=== PATIENT | male | born 1950 | race Caucasian/White ===

== ENCOUNTER → 2019-04-08 14:26 | Outpatient (BNVA) | payer MEDICARE, BC, SELFPAY | PROVIDERS: Family Provider Family Medicine; PCP Family Medicine; Visit Provider Internal Medicine Rheumatology | DX: M05.79 Rheumatoid arthritis with rheumatoid factor of multiple sites without organ or systems involvement (principal); Z79.899 Other long term (current) drug therapy; Z79.52 Long term (current) use of systemic steroids; D50.9 Iron deficiency anemia, unspecified; M10.9 Gout, unspecified; N18.9 Chronic kidney disease, unspecified | CPT/HCPCS: 99214 ==

== ENCOUNTER → 2019-06-25 14:19 | Outpatient (BNVA) | payer MEDICARE, BC, SELFPAY | PROVIDERS: Family Provider Family Medicine; PCP Family Medicine; Visit Provider Internal Medicine Rheumatology | DX: Z79.899 Other long term (current) drug therapy (principal) | CPT/HCPCS: 36415; 80053; 80076; 82565; 85007; 85025; 85027; 85651; 86140; 86480 ==

== ENCOUNTER → 2019-10-06 15:04 | Outpatient (BNVA) | payer MEDICARE, BC, SELFPAY | PROVIDERS: Family Provider Family Medicine; PCP Family Medicine; Visit Provider Internal Medicine Rheumatology | DX: M05.79 Rheumatoid arthritis with rheumatoid factor of multiple sites without organ or systems involvement (principal); Z79.899 Other long term (current) drug therapy; D50.9 Iron deficiency anemia, unspecified; M10.9 Gout, unspecified; N18.9 Chronic kidney disease, unspecified | CPT/HCPCS: 99214 ==

== ENCOUNTER 2019-12-27 11:52 | Inpatient (IN) | payer MEDICARE, BC, SELFPAY ==
[2019-12-27] VITALS (35 sets, daily range): BP systolic 74–197; BP diastolic 46–128; PULSE 75–122; RESP 14–32; TEMP 36.9; O2SAT 69–100; BMI 30.4
--- NOTE | 2019-12-27 12:37 | XRR_ITS ---
PROCEDURE INFORMATION: Exam: XR Chest, 1 View Exam date and time: 12/27/2019 1:28 PM Age: 69 years old Clinical indication: Dyspnea TECHNIQUE: Imaging protocol: XR of the chest Views: 1 view. COMPARISON: CR Chest 2 views* [id number] 07/11/2018 10:41 AM FINDINGS: Lungs: Low lung volumes seen with right lower lobe atelectasis No consolidation. Pleural space: Unremarkable. No pleural effusion. No pneumothorax. Heart/Mediastinum: Unremarkable. No cardiomegaly. Bones/joints: Unremarkable. Soft tissues: cardiac pacemaker left anterior chest XR/XR chest 1V portable [id number] IMPRESSION: 1. No acute findings. Right lower lobe atelectasis 2. Low lung volumes seen 3. Cardiac pacemaker left anterior chest
--- NOTE | 2019-12-27 12:49 | ED_ITS ---
HPI - SOB/Dyspnea General: Chief Complaint: Shortness of Breath/Dyspnea Stated Complaint: COVID +, sore throat worsening, congestion Time Seen by Provider: 12/27/19 12:36 History of Present Illness: HPI Narrative: 69-year-old male presents emergency room complaining of shortness of breath. 1 week ago he was diagnosed with COVID-19. He has been at home since he said the last 3 to 4 days he has been getting progressively worsening shortness of breath. He was initially evaluated by our triage nurse and found to have sats in room air in the 70%'s with a respiratory rate in the mid 40s. He was obviously cyanotic and in respiratory distress. With a nonrebreather he is sats improved to the mid 80s. He remains cyanotic and tachypneic. Patient reports initially having diarrhea at the onset of the disease but that has resolved. MD elicited complaint: shortness of breath and cough Pertinent past history: other (Patient is on immunosuppressants for rheumatoid arthritis) Onset (ago): day(s) (3-4) Context: recent illness (Diagnosed with COVID-19 1 week ago) Timing: constant and progressively worsening Severity: severe Exacerbating factors: exertion and coughing Relieving factors: oxygen and rest Known history of: other Associated symptoms: Reports chest congestion, cough, fever(s), myalgias and nausea; Deny abdominal pain, chest pain, diaphoresis, dizziness, extremity pain, hemoptysis, lightheadedness, orthopnea, palpitations, paresthesias, polydipsia, polyuria, rash, sense of impending doom, syncope or vomiting Treatment prior to arrival: none Review of Systems Const: Reports: fever(s); Denies: diaphoresis ENMT: Denies: throat pain, ear or mastoid pain, nasal discharge or nasal congestion Card: Denies: chest pain, palpitations, lightheadedness, syncope or orthopnea Resp: Reports: chest congestion; Denies: hemoptysis GI: Reports: nausea; Denies: abdominal pain or vomiting : Denies: flank pain, dysuria, urinary frequency or urinary urgency Musc: Denies: extremity pain Skin/Breast: Denies: rash or pruritus Neuro: Denies: dizziness Endo: Denies: polyuria or polydipsia PFSH ED PFSH: Medical History CKD (chronic kidney disease) Gout High risk medication use Immunization counseling Immunosuppression Iron deficiency anemia Seropositive rheumatoid arthritis of multiple joints Surgical History History of tonsillectomy Hx of appendectomy Family History Other Cancer Hypertension Denies family history of Rheumatoid arthritis Diabetes Systemic lupus erythematosus (SLE) in adult Social History Smoking and tobacco status: former smoker Quit status (tobacco): has quit using tobacco Year quit tobacco: 1969 Alcohol intake: never Lives independently: No Household members: spouse Marital status: History of recent travel: No Physical Exam Const: GENERAL APPEARANCE: cooperative ORIENTATION/CONSCIOUSNESS: Yes awake, Yes oriented to person, Yes oriented to place and Yes oriented to time HENMT: COMMON NORMALS: normocephalic, atraumatic and hearing grossly normal bilaterally HEAD & SCALP: normocephalic and atraumatic Eye: COMMON NORMALS: Equal, round and reactive pupils present, EOMs intact bilaterally, conjunctivae normal and no scleral icterus CONJUNCTIVA: Yes conjunctivae normal PUPIL: Yes Equal, round and reactive pupils present Neck/C-Spine: COMMON NORMALS: full ROM, no lymphadenopathy, supple and no JVD Resp: EFFORT & INSPECTION: Yes tachypneic, Yes respiratory distress, Yes labored, Yes Actively coughing and Yes audible wheezes AUSCULTATION: rhonchi and wheezes Cardio: COMMON NORMALS: no JVD, regular rate, regular rhythm and No murmurs present (Cardio) RATE: regular rate RHYTHM: regular rhythm GI: COMMON NORMALS: Soft to palpation and No hepatosplenomegaly present AUSCULTATION: Yes normoactive bowel sounds PALPATION: Yes Soft to palpation, No Tenderness to palpation present (GI), No Guarding due to palpation present (GI) and Yes No hepatosplenomegaly present Extremity: COMMON NORMALS: normal to inspection, capillary refill normal, no clubbing, cyanosis or edema, no calf tenderness and no pedal edema Neuro: SENSORIUM/ORIENTATION: Yes oriented to person, Yes oriented to place and Yes oriented to time Skin: COMMON NORMALS: no rashes or lesions noted GENERAL SKIN EXAM: no rashes or lesions noted Course Vital Signs: Vital signs: Vital Signs Temperature 97.6 F 12/29/19 14:00 Pulse Rate 81 12/29/19 15:27 Respiratory Rate 24 H 12/29/19 15:22 Blood Pressure 114/63 12/29/19 13:00 Pulse Oximetry 94 12/29/19 15:20 MDM - SOB/Dyspnea MDM Narrative: Medical decision making narrative: Positive for Covid will go ahead and admit for same discussed with Dr. Sands. Patient was intubated in the ER by Dr. Sands. I was available on standby for him. Lab Data: Labs: Lab Results 12/27/19 12/27/19 12/27/19 Range/Units 12:40 12:40 12:40 WBC 7.7 (4.0-10.0) 10^3/ uL RBC 5.23 (4.1-5.3) 10^6/u L Hgb 16.9 H (11.7-16.6) g/dL Hct 48.5 (42.0-52.0) % MCV 92.7 (80-94) fL MCH 32.3 (28.0-34.0) pg MCHC 34.8 (30.0-36.0) g/dL RDW 13.6 (12.1-15.1) % Plt Count 291 (130-400) 10^3/c mm MPV 10.2 (7.4-10.4) fL Neut % (Auto) 89.2 % Lymph % (Auto) 4.2 % [place] % (Auto) 6.0 % Eos % (Auto) 0.0 % Baso % (Auto) 0.1 % Neut # (Auto) 6.84 (1.8-7.7) 10^3/u L Lymph # (Auto) 0.3 L (0.8-4.8) 10^3/u L [place] # (Auto) 0.5 (0.2-0.9) 10^3/u L Eos # (Auto) 0.0 (0.0-0.8) 10^3/u L Baso # (Auto) 0.0 (0.0-0.1) 10^3/u L Nucleated RBC % (a uto) 0 % Nucleated RBCs # 0.0 /100WBC APTT (23.9-36.7) SECO NDS Fibrinogen Cancelled D-Dimer Cancelled Specimen Type Sample Site ABG pH (7.35-7.45) ABG pCO2 (35-45) mmHg ABG pO2 (80.0-100.0) mmH g ABG HCO3 (22-26) mmol/L ABG O2 Saturation ABG Base Excess (-2.0-2.0) mmol/ L Bc Test A-a O2 Gradient (5-10) mmHg Hematocrit (42-52) % Hgb O2 Saturation (95-100) % Carboxyhemoglobin (0.4-20.1) %THgb Methemoglobin (0.4-1.5) % Total Hemoglobin (14-18) g/dL Ionized Calcium (1.1-1.4) mmol/L O2 Delivery Device O2 Liters/Min % FiO2 % Doubler Operator ID Sodium Cancelled Potassium Cancelled Chloride Cancelled Carbon Dioxide Cancelled Anion Gap Cancelled BUN Cancelled Creatinine Cancelled GFR Calculation Cancelled Glucose Cancelled Calculated Osmolal ity Cancelled Lactic Acid Calcium Cancelled Ferritin Cancelled Total Bilirubin Cancelled AST Cancelled ALT Cancelled Alkaline Phosphata se Cancelled Lactate Dehydrogen ase Cancelled Creatine Kinase Cancelled CK-MB (CK-2) (0-10.4) ng/mL CK-MB (CK-2) Rel I ndex (0.0-5.3) % C-Reactive Protein Cancelled Total Protein Cancelled Albumin Cancelled Globulin Cancelled Procalcitonin Cancelled Influenza Type A A g (Negative) Influenza Type B A g (Negative) SARS-CoV-2 Ag (Rap id) (Negative) 12/27/19 12/27/19 12/27/19 Range/Units 12:40 12:46 13:07 WBC (4.0-10.0) 10^3/ uL RBC (4.1-5.3) 10^6/u L Hgb (11.7-16.6) g/dL Hct (42.0-52.0) % MCV (80-94) fL MCH (28.0-34.0) pg MCHC (30.0-36.0) g/dL RDW (12.1-15.1) % Plt Count (130-400) 10^3/c mm MPV (7.4-10.4) fL Neut % (Auto) % Lymph % (Auto) % [place] % (Auto) % Eos % (Auto) % Baso % (Auto) % Neut # (Auto) (1.8-7.7) 10^3/u L Lymph # (Auto) (0.8-4.8) 10^3/u L [place] # (Auto) (0.2-0.9) 10^3/u L Eos # (Auto) (0.0-0.8) 10^3/u L Baso # (Auto) (0.0-0.1) 10^3/u L Nucleated RBC % (a uto) % Nucleated RBCs # /100WBC APTT (23.9-36.7) SECO NDS Fibrinogen 815 H D-Dimer 0.73 H Specimen Type Arterial Sample Site Radial, left ABG pH 7.46 H (7.35-7.45) ABG pCO2 26.7 L (35-45) mmHg ABG pO2 49.1 L (80.0-100.0) mmH g ABG HCO3 19.2 L (22-26) mmol/L ABG O2 Saturation ABG Base Excess -2.9 L (-2.0-2.0) mmol/ L Bc Test Pos A-a O2 Gradient (5-10) mmHg Hematocrit 48.9 (42-52) % Hgb O2 Saturation (95-100) % Carboxyhemoglobin (0.4-20.1) %THgb Methemoglobin (0.4-1.5) % Total Hemoglobin (14-18) g/dL Ionized Calcium (1.1-1.4) mmol/L O2 Delivery Device Nrb O2 Liters/Min 15.0 % FiO2 100.0 % Doubler Operator ID Ed Sodium Potassium Chloride Carbon Dioxide Anion Gap BUN Creatinine GFR Calculation Glucose Calculated Osmolal ity Lactic Acid Cancelled Calcium Ferritin Total Bilirubin AST ALT Alkaline Phosphata se Lactate Dehydrogen ase Creatine Kinase CK-MB (CK-2) (0-10.4) ng/mL CK-MB (CK-2) Rel I ndex (0.0-5.3) % C-Reactive Protein Total Protein Albumin Globulin Procalcitonin Influenza Type A A g (Negative) Influenza Type B A g (Negative) SARS-CoV-2 Ag (Rap id) (Negative) 12/27/19 12/27/1920 Range/Units 13:07 13:07 13:32 WBC (4.0-10.0) 10^3/ uL RBC (4.1-5.3) 10^6/u L Hgb (11.7-16.6) g/dL Hct (42.0-52.0) % MCV (80-94) fL MCH (28.0-34.0) pg MCHC (30.0-36.0) g/dL RDW (12.1-15.1) % Plt Count (130-400) 10^3/c mm MPV (7.4-10.4) fL Neut % (Auto) % Lymph % (Auto) % [place] % (Auto) % Eos % (Auto) % Baso % (Auto) % Neut # (Auto) (1.8-7.7) 10^3/u L Lymph # (Auto) (0.8-4.8) 10^3/u L [place] # (Auto) (0.2-0.9) 10^3/u L Eos # (Auto) (0.0-0.8) 10^3/u L Baso # (Auto) (0.0-0.1) 10^3/u L Nucleated RBC % (a uto) % Nucleated RBCs # /100WBC APTT 38.3 H (23.9-36.7) SECO NDS Fibrinogen D-Dimer Specimen Type Sample Site ABG pH (7.35-7.45) ABG pCO2 (35-45) mmHg ABG pO2 (80.0-100.0) mmH g ABG HCO3 (22-26) mmol/L ABG O2 Saturation ABG Base Excess (-2.0-2.0) mmol/ L Bc Test A-a O2 Gradient (5-10) mmHg Hematocrit (42-52) % Hgb O2 Saturation (95-100) % Carboxyhemoglobin (0.4-20.1) %THgb Methemoglobin (0.4-1.5) % Total Hemoglobin (14-18) g/dL Ionized Calcium (1.1-1.4) mmol/L O2 Delivery Device O2 Liters/Min % FiO2 % Doubler Operator ID Sodium 132 L Potassium 3.4 L Chloride 97 L Carbon Dioxide 18 L Anion Gap 20.4 H BUN 33 H Creatinine 1.6 H GFR Calculation 42.9 L Glucose 134 H Calculated Osmolal ity 283 L Lactic Acid Calcium 8.6 Ferritin 3194 H Total Bilirubin 0.6 AST 62 H ALT 29 Alkaline Phosphata se 60 Lactate Dehydrogen ase 653 H Creatine Kinase 227 CK-MB (CK-2) 4.8 (0-10.4) ng/mL CK-MB (CK-2) Rel I ndex (0.0-5.3) % C-Reactive Protein 209.1 H Total Protein 7.3 Albumin 3.6 Globulin 3.7 Procalcitonin 0.48 Influenza Type A A g Negative (Negative) Influenza Type B A g Negative (Negative) SARS-CoV-2 Ag (Rap id) (Negative) 12/27/19 12/27/19 Range/Units 14:09 14:25 WBC (4.0-10.0) 10^3/ uL RBC (4.1-5.3) 10^6/u L Hgb (11.7-16.6) g/dL Hct (42.0-52.0) % MCV (80-94) fL MCH (28.0-34.0) pg MCHC (30.0-36.0) g/dL RDW (12.1-15.1) % Plt Count (130-400) 10^3/c mm MPV (7.4-10.4) fL Neut % (Auto) % Lymph % (Auto) % [place] % (Auto) % Eos % (Auto) % Baso % (Auto) % Neut # (Auto) (1.8-7.7) 10^3/u L Lymph # (Auto) (0.8-4.8) 10^3/u L [place] # (Auto) (0.2-0.9) 10^3/u L Eos # (Auto) (0.0-0.8) 10^3/u L Baso # (Auto) (0.0-0.1) 10^3/u L Nucleated RBC % (a uto) % Nucleated RBCs # /100WBC APTT (23.9-36.7) SECO NDS Fibrinogen D-Dimer Specimen Type Arterial Sample Site Radial, right ABG pH 7.45 (7.35-7.45) ABG pCO2 28.7 L (35-45) mmHg ABG pO2 57.6 L (80.0-100.0) mmH g ABG HCO3 20.0 L (22-26) mmol/L ABG O2 Saturation 90.3 ABG Base Excess -2.6 L (-2.0-2.0) mmol/ L Bc Test Pos A-a O2 Gradient 62.0 H (5-10) mmHg Hematocrit 45.8 (42-52) % Hgb O2 Saturation 88.5 L (95-100) % Carboxyhemoglobin 1.3 (0.4-20.1) %THgb Methemoglobin 0.6 (0.4-1.5) % Total Hemoglobin 14.9 (14-18) g/dL Ionized Calcium 1.1 (1.1-1.4) mmol/L O2 Delivery Device Not Reportable O2 Liters/Min 45.0 % FiO2 80.0 % Doubler Operator ID Ed Sodium 139.0 Potassium 3.5 Chloride Carbon Dioxide Anion Gap BUN Creatinine GFR Calculation Glucose 121.0 H Calculated Osmolal ity Lactic Acid Calcium Ferritin Total Bilirubin AST ALT Alkaline Phosphata se Lactate Dehydrogen ase Creatine Kinase CK-MB (CK-2) (0-10.4) ng/mL CK-MB (CK-2) Rel I ndex (0.0-5.3) % C-Reactive Protein Total Protein Albumin Globulin Procalcitonin Influenza Type A A g (Negative) Influenza Type B A g (Negative) SARS-CoV-2 Ag (Rap id) Positive H (Negative) Discharge Plan Discharge Patient Disposition: Admitted As Inpatient Admit Provider: Du Sands Discharge Date/Time: 12/27/19 18:43 Coding Level of Care Code ED Directional Bore Operator for Chg Fwd Exam Comprehensive
--- NOTE | 2019-12-27 12:49 | PC.NURSE ---
Pt was found in COVID waiting room while this nurse was discharging another pt. Pt was in resp distress, RR at approx 40-50. Placed pulse ox on pt and pt was 72% on room air. Pt taken back to room 12, placed on 15L NRB mask with saturation improvement to 84%. Pt placed on monitor, in a gown and bilateral 18g IVs established, blood drawn and sent to lab. Dr Felix called to bedside, RT called for hi-flow NC.
[2019-12-27 12:57] LABS: Basophils % 0.1 %; Hematocrit 48.5 % (42.0-52.0); Hemoglobin 16.9 g/dL (11.7-16.6); Lymphocytes # 0.3 10^3/uL (0.8-4.8); Lymphocytes % 4.2 %; Mean Corpuscular HGB Conc 34.8 g/dL (30.0-36.0); Mean Corpuscular Hemoglobin 32.3 pg (28.0-34.0); Mean Corpuscular Volume 92.7 fL (80-94); Mean Platelet Volume 10.2 fL (7.4-10.4); Monocytes # 0.5 10^3/uL (0.2-0.9); Neutrophils # 6.84 10^3/uL (1.8-7.7); Neutrophils % 89.2 %; Nucleated Red Blood Cells % 0 %; Platelet Count 291 10^3/cmm (130-400); Red Blood Count 5.23 10^6/uL (4.1-5.3); Red Cell Distribution Width 13.6 % (12.1-15.1); White Blood Count 7.7 10^3/uL (4.0-10.0)
[2019-12-27 12:57] LABS: ABG PCO2 26.7 mmHg (35-45); ABG PH Result 7.46 (7.35-7.45); Arterial Blood Gas Hematocrit 48.9 % (42-52); Base Excess ABG -2.9 mmol/L (-2.0-2.0); Blood Gas Allen Test Pos; Blood Gas Operator Identificat ED; Blood Gas Sample Site Radial, left; Blood Gas Sample Type Arterial; HCO3 ABG 19.2 mmol/L (22-26); Oxygen Device NRB; PO2 ABG 49.1 mmHg (80.0-100.0)
[2019-12-27] MEDS: dexamethasone 4 mg/mL INJ 6 MG IVP (13:16)
[2019-12-27 13:33] LABS: Fibrinogen 815 mg/dL (174-498)
[2019-12-27 13:36] LABS: D Dimer 0.73 ug/mIFEU (0-0.59)
[2019-12-27 13:45] LABS: Procalcitonin 0.48 ng/mL (0-0.5)
[2019-12-27 13:57] LABS: Alanine Aminotransferase 29 U/L (0-41); Albumin Level 3.6 g/dL (3.5-5.2); Alkaline Phosphatase 60 IU/L (40-130); Anion Gap 20.4 (5-19); Aspartate Amino Transferase 62 U/L (0-40); Blood Urea Nitrogen 33 mg/dL (8-23); C Reactive Protein 209.1 mg/L (0.0-4.9); Calcium 8.6 mg/dL (8.5-10.5); Carbon Dioxide 18 mmol/L (22-29); Chloride 97 mmol/L (98-107); Creatine Phosphokinase 227 U/L (39-308); Globulin 3.7 g/dL (1.3-4.6); Glomerular Filtration Rate 42.9 mL/min (90-130); Glucose 134 mg/dL (65-115); Lactate Dehydrogenase 653 U/L (135-225); Osmolality Calculated 283 mOsm/kg (285-295); Potassium 3.4 mmol/L (3.5-5.1); Sodium 132 mmol/L (136-145); Total Bilirubin 0.6 mg/dL (0.15-1.2); Total Protein 7.3 g/dL (6.6-8.7)
[2019-12-27 14:20] LABS: ABG PCO2 28.7 mmHg (35-45); ABG PH Result 7.45 (7.35-7.45); Arterial Blood Gas Hematocrit 45.8 % (42-52); Base Excess ABG -2.6 mmol/L (-2.0-2.0); Blood Gas Allen Test Pos; Blood Gas Operator Identificat ED; Blood Gas Sample Site Radial, right; Blood Gas Sample Type Arterial; Carboxyhemoglobin 1.3 %THgb (0.4-20.1); HGB O2 Sat 88.5 % (95-100); Ionized Calcium Level - ABG 1.1 mmol/L (1.1-1.4); Methemoglobin 0.6 % (0.4-1.5); Oxygen Saturation ABG 90.3; PO2 ABG 57.6 mmHg (80.0-100.0); Potassium Level - ABG 3.5 mmol/L (3.5-5.0); Total Hemoglobin 14.9 g/dL (14-18)
[2019-12-27 14:21] LABS: Ferritin 3194 ng/mL (30-400)
[2019-12-27 14:36] LABS: CKMB 4.8 ng/mL (0-10.4)
[2019-12-27 14:41] LABS: Influenza A by IFA Negative (Negative); Influenza B by IFA Negative (Negative)
--- NOTE | 2019-12-27 14:51 | PM.HP ---
Providers/Chief Complaint Admitting Physician: Du Sands Primary Care Provider: Sebas Mojica Jr, MD Chief Complaint: COVID +, sore throat worsening, congestion History of Present Illness 69-year-old male with PMH of R.A ,GOUT,CKD came in with c/o worseing SOB and cough for the last 3-4 days. He was diagnosed with COVID 1 week ago.Post diagnosis he was at home.Upon arrival in ER he was destaurating in 70 % on R.R being in 40s.He failed NRM and was finally placed on HHFNC @ 80 % FIO2 and 45L. ABG : done in ER : Ph:7.46 , PCO2: 26, PO2: 49, FIO2: 100 % Repeat ABG on HHFNC :Ph : 7.45, PCO2: 28 , PO2: 57,FIO2:80 %. Xray chest :No acute findings. Right lower lobe atelectasis. Low lung volumes seen. D Dimer:0.73, Fibrinogen : 815 , Ferritin: 3194, LDH: 653,CRP: 209 Review of Systems General: Reports: 10 or more systems reviewed and unremarkable except in HPI and below Const: Denies: chills or body aches Card: Denies: palpitations, edema, swelling of feet/ankles, dyspnea on exertion, orthopnea or leg pain with exertion GI: Denies: abdominal pain, nausea, vomiting, diarrhea or constipation : Denies: flank pain or difficulty urinating Musc: Denies: back pain, extremity pain or extremity swelling Neuro: Denies: headache(s), difficulty walking or confusion Medications/Allergies Home Medications Medication Instructions Recorded Confirmed Last Taken Type allopurinol 300 mg tablet 300 mg PO DAILY 04/08/19 12/27/19 Unknown History aspirin 81 mg tablet,delayed 81 mg PO DAILY 04/08/19 12/27/19 Unknown History release bumetanide 1 mg tablet 1 mg PO BID 04/08/19 12/27/19 Unknown History calcitriol 0.25 mcg capsule 0.25 mcg PO DAILY cap 04/08/19 12/27/19 Unknown History carvedilol 6.25 mg tablet 6.25 mg PO BID 04/08/19 12/27/19 Unknown History diphenhydramine HCl 25 mg capsule 25 mg PO BEDTIME PRN cap 04/08/19 12/27/19 Unknown History ferrous sulfate 325 mg (65 mg 325 mg PO BID 04/08/19 12/27/19 Unknown History iron) tablet fluvastatin 40 mg capsule 40 mg PO BID 04/08/19 12/27/19 Unknown History glucosamine sulfate 2KCl 1,000 mg 1,000 mg PO BID PRN 04/08/19 12/27/19 Unknown History tablet gabapentin 300 mg capsule See Rx Instructions PO .COMPLEX 10/06/19 12/27/19 Unknown Rx #60 cap prednisone 10 mg tablet See Rx Instructions PO .COMPLEX 10/06/19 12/27/19 Unknown Rx PRN #30 tab tofacitinib 5 mg tablet 5 mg PO DAILY #30 tab 10/06/19 12/27/19 Unknown Rx Calcium 600 + D(3) 1 tab PO DAILY 12/27/19 12/27/19 Unknown History acetaminophen [Tylenol Extra 1,000 mg PO PRN 12/27/19 12/27/19 Unknown History Strength] Allergies Allergy/AdvReac Type Severity Reaction Status Date / Time leflunomide [From Arava] Allergy Intermediate rash Verified 12/27/19 13:45 PFSH Acute PFSH: Medical History CKD (chronic kidney disease) Gout High risk medication use Immunization counseling Immunosuppression Iron deficiency anemia Seropositive rheumatoid arthritis of multiple joints Surgical History History of tonsillectomy Hx of appendectomy Family History Other Cancer Hypertension Denies family history of Rheumatoid arthritis Diabetes Systemic lupus erythematosus (SLE) in adult Social History Smoking and tobacco status: former smoker Quit status (tobacco): has quit using tobacco Year quit tobacco: 1970 Alcohol intake: never Lives independently: No Household members: spouse Marital status: History of recent travel: No Vitals/I&O/Wt Last Vital Signs Temp 98.4 F 12/27/19 13:13 Pulse 106 H 12/27/19 13:27 Resp 22 H 12/27/19 13:27 BP 108/72 12/27/19 13:13 Pulse Ox 91 12/27/19 13:27 Weight last 48 hrs Weight 90.718 kg Physical Exam Const: COMMON NORMALS: patient oriented x3 HENMT: COMMON NORMALS: normocephalic, atraumatic, hearing grossly normal bilaterally and external ears normal HEAD & SCALP: normocephalic and atraumatic EXTERNAL EAR: Yes external ears normal Eye: COMMON NORMALS: no scleral icterus GENERAL EYE: appearance normal, both eyes and all related structures Chest: COMMONS NORMALS: normal inspection of the chest and normal palpation of entire chest wall CHEST: Yes Symmetrical chest wall rise Resp: COMMON NORMALS: normal respiratory effort, No retractions, No use of accessory muscles and clear to auscultation bilaterally EFFORT & INSPECTION: Yes symmetric chest movement AUSCULTATION: clear to auscultation bilaterally Cardio: COMMON NORMALS: regular rate, regular rhythm, S1 normal heart sound present, S2 normal heart sound present, No gallops present (Cardio), No murmurs present (Cardio), No rub (Cardio) and Peripheral pulses 2+ throughout RATE: regular rate RHYTHM: regular rhythm HEART SOUNDS: S1 normal heart sound present and S2 normal heart sound present PERIPHERAL PULSES: Peripheral pulses 2+ throughout GI: COMMON NORMALS: Normal to inspection, nondistended, normoactive bowel sounds present, Soft to palpation, non-tender, No hepatosplenomegaly present and no masses AUSCULTATION: Yes normoactive bowel sounds PALPATION: Yes Soft to palpation and Yes No hepatosplenomegaly present RECTAL EXAM: Yes deferred Extremity: COMMON NORMALS: no clubbing, cyanosis or edema and no pedal edema Neuro: COMMON NORMALS: patient oriented x3 Data : 12/27/19 12:40 12/27/19 13:07 Micro: Microbiology 12/27/19 12:45 Blood Culture - Preliminary Blood SPECIMEN COLLECTED 12/27/19 12:40 Blood Culture - Preliminary Blood SPECIMEN COLLECTED A&P Assessment and plan (1) Pneumonia due to COVID-19 virus: Status: Acute (2) Gout: Continue Allopurinol Status: Acute (3) CKD (chronic kidney disease): Monitor BMP Renal dosing of Medications. Status: Acute (4) Seropositive rheumatoid arthritis of multiple joints: Status: Acute (5) Iron deficiency anemia: Monitor CBC Status: Acute Additional A&P Information #Ac Hypoxic R.F 2/ COVID PNA: Continue Remdesevir (12/27),Likely 5 to 10 days course Continue Dexamethasone (12/27) Continue Cef and Azith Trend Cytokine jimbo inflammatory marker ( ESR,CRP,Ferritin,Ddimer,IL6 ) Currently on full anticog. CTA Continue heated high flow oxygen through nasal cannula.(Currently on 80% fio2 and and 40 L) Serial ABG Serial x-ray chest. DVT : On Heparin Code:Full code Attestations Medical Necessity Statement*: Patient needs to be in hospital for the management of COVID PNA Coding Level of Care Code Acute Security Control Center Operator for Chg Fwd Exam Comprehensive Diagnoses Pneumonia due to COVID-19 virus U07.1; J12.89 Gout M10.9 CKD (chronic kidney disease) N18.9 Seropositive rheumatoid arthritis of multiple joints M05.79 Iron deficiency anemia D50.9
[2019-12-27 15:37] LABS: SARS Covid-2 Antigen Positive (Negative)
--- NOTE | 2019-12-27 16:15 | PC.NURSE ---
Attempted to call report to VICU, was told the nurse would have to call back.
--- NOTE | 2019-12-27 17:14 | ECG_ITS ---
[facility] Test Date: 2019-12-27 Pat Name: Moses Joseph Department: Room: ICU19 Gender: Male City Letter Carrier: : 1950 Requested By: Du Sands Order Number: [id number] Villanueva MD: Hoa Martin M.D. Measurements Intervals [place] Rate: 95 P: 60 OH: 128 QRS: 152 QRSD: 116 T: 95 QT: 402 QTc: 508 Interpretive Statements ELECTRONIC VENTRICULAR PACEMAKER ABNORMAL RHYTHM ECG Compared to ECG 08/22/2016 16:44:01 Sinus tachycardia no longer present Left bundle-branch block no longer present Electronically Signed On 12-30-2019 7:23:32 CDT by Hoa Martin M.D. [email or web address]
[2019-12-27] MEDS: succinylcholine 20 mg/mL SDV 10mL 120 MG IVP (17:38)
[2019-12-27 17:43] LABS: Partial Thromboplastin Time 38.3 SECONDS (23.9-36.7)
[2019-12-27] MEDS: propofol 1,000 MG/100 ML INJ 8.2 MG IV (17:43)
[2019-12-27] MEDS: propofol 10 mg/mL SDV 20 mL 30 MG IVP (17:54)
[2019-12-27] MEDS: vecuronium 10 mg SDV IVP (18:06)
[2019-12-27] MEDS: fentaNYL 50 mcg/mL INJ 2mL 100 MCG IVP (18:13)
[2019-12-27] MEDS: dexmedetomidine 400 MCG in sodium chloride 0.9% (100 ml) 100 ML 11.8 MCG IV (18:14)
--- NOTE | 2019-12-27 18:19 | CTR_ITS ---
PROCEDURE INFORMATION: Exam: CT Chest Without Contrast Exam date and time: 12/27/2019 6:34 PM Age: 69 years old Clinical indication: Shortness of breath; Prior surgery; Surgery date: 6+ months; Surgery type: Pacer; Patient HX: C/O worsening SOB, congestion, sore throat, covid+ now intubated; Additional info: Pna TECHNIQUE: Imaging protocol: Computed tomography of the chest without contrast. Radiation optimization: All CT scans at this facility use at least one of these dose optimization techniques: automated exposure control; mA and/or kV adjustment per patient size (includes targeted exams where dose is matched to clinical indication); or iterative reconstruction. COMPARISON: CTA Chest-Pulmonary Emb [id number] 10/26/2014 2:33 PM RADIATION DOSE METRICS: Total DLP (mGy-cm): 989.14 FINDINGS: Tubes, catheters and devices: There is an ET tube with tip 3 cm above the warren and an orogastric tube with tip in the stomach. A pacemaker device is present, and its leads are in appropriate position. Lungs: There is marked increase of diffuse airspace density, which may represent pneumonia, pulmonary edema, or inflammatory pneumonitis such as ARDS. Pleural space: Unremarkable. No pneumothorax. No pleural effusion. Heart: The heart is enlarged. Sternotomy wires and mediastinal surgical clips are present, consistent with previous coronary arterial bypass grafting. Aorta: Unremarkable. No aortic aneurysm. Lymph nodes: Unremarkable. No enlarged lymph nodes. Bones/joints: Unremarkable. No acute fracture. Soft tissues: Unremarkable. CT/CT chest con [id number] IMPRESSION: There is marked increase of diffuse airspace density, which may represent pneumonia, pulmonary edema, or inflammatory pneumonitis such as ARDS. Radiation Dose CTDIVOL = (mGy): DLP = 989.14 (mGy-cm)
--- NOTE | 2019-12-27 18:31 | XRR_ITS ---
PROCEDURE INFORMATION: Exam: XR Chest, 1 View Exam date and time: 12/27/2019 6:33 PM Age: 69 years old Clinical indication: Device placement; Ett placement (vent status); Additional info: Post-intubation. Ett and ng tube placement TECHNIQUE: Imaging protocol: XR of the chest Views: 1 view. COMPARISON: CR (CHEST, ) 12/27/2019 1:16 PM FINDINGS: Tubes, catheters and devices: Endotracheal tube is in place the tip is 6.2 cm above the warren. NG tube is in place extending into the stomach. Lungs: Parenchymal densities are present in the bilateral lower lobe probable atelectasis. Pleural space: Unremarkable. No pleural effusion. No pneumothorax. Heart/Mediastinum: Unremarkable. No cardiomegaly. Bones/joints: Unremarkable. Soft tissues: A cardiac pacemaker is in place on the left chest. Other findings: Comparison to prior examination similar findings is seen. XR/XR chest 1V portable [id number] IMPRESSION: 1. Stable bilateral lower lobe parenchymal densities. 2. Endotracheal tube is in place above the warren 3. NG tube is in the stomach 4. Stable cardiac pacemaker left chest
--- NOTE | 2019-12-27 18:33 | PM.ACPR ---
Acute Procedures Intubation: Time out performed: Yes Sedative: etomidate Paralytic: succinylcholine Laryngoscope: fiber optic video scope ET tube size: 8 ET tube uncuffed: Yes Tube secured depth (cm): 22 Tube secured location: teeth Tube placement confirmation: visualized tube passing through cords, equal breath sounds bilaterally and color change noted Patient tolerated procedure: well Intubation complications: none
--- NOTE | 2019-12-27 18:37 | PC.NURSE ---
Pt was placed in semi-high fowlers in preparation for transport to VICU at approx 1720. Pt oxygen dropped to 88% on hi-flow at 55 flow with 100% FiO2. Pt was electively intubated by Dr Sands at 1740. See flow-sheets for times of meds and VS. Pt intubated at 1740 with an 8.0 tube, 22 at the gum line. OG tube placed after failed NG placement by Dr Sands. Muniz placed, post intubation XR done at bedside at 1828. Pt was placed in soft wrist restraints at 1804 for agitation and pulling at tubes. Pt taken to CT then to VICU by nurse and RT at 1843.
[2019-12-27] MEDS: heparin drip 25,000 UNIT/500 ML PREMIX 13 UNIT IV (19:30)
--- NOTE | 2019-12-27 19:43 | XRR_ITS ---
PROCEDURE INFORMATION: Exam: XR Chest, 1 View Exam date and time: 12/27/2019 7:50 PM Age: 69 years old Clinical indication: Device placement; Additional info: Tube placemnt TECHNIQUE: Imaging protocol: XR of the chest Views: 1 view. COMPARISON: CT chest con [id number] 12/27/2019 6:48 PM FINDINGS: Tubes, catheters and devices: There is an ET tube with tip at the clavicular heads and an orogastric tube with tip off the film. A pacemaker device is present, and its leads are in appropriate position. Lungs: Nonspecific bibasilar consolidation is present, consistent with atelectasis, edema, or pneumonia. There is mild vascular congestion with cephalization of flow, interstitial edema and ground-glass opacities compatible with CHF. Pleural space: There are trace pleural effusions. There is no pneumothorax. Heart/Mediastinum: The heart is enlarged. Bones/joints: No acute abnormality. XR/XR chest 1V [id number] IMPRESSION: 1. There is an ET tube with tip at the clavicular heads and an orogastric tube with tip off the film. 2. Nonspecific bibasilar consolidation is present, consistent with atelectasis, edema, or pneumonia. 3. There is mild vascular congestion with cephalization of flow, interstitial edema and ground-glass opacities compatible with CHF.
--- NOTE | 2019-12-27 19:43 | PC.PHAR ---
Pharmacokinetic dosing service Date: 12/27/19 Time: 1943 Objective: Patient: Moses Joseph Floor: ICU19-6 Age: 69 yo Serum creatinine: 1.6 mg/dL Height: 68.0 Inches Weight (kg): 90.718 Diagnosis: Relevant medical/social history: Cultures and sensitivities: Other labs: Assessment: IBW (kg): 68.40 Dosing wt(kg): 90.718 Estimated Creatinine clearance (ml/min): 41.6 CRCL method: Cockcroft and Gault using ibw(default). Drug selected: Vancomycin Loading dose (mg): 0 Vd (liters): 81.6 (factor used: 0.9 L/kg) Bryson (hr-1): 0.039 Half life (hrs): 17.77 Recommended dose: 1500 mg Interval: 24 hrs Infusion time (hrs): 1.5 Predicted peak (mcg/mL): 29.4 Predicted trough (mcg/mL): 12.23 Total body weight is being used for vancomycin dosing. Renal function is stable [ ] /unstable [ ] Recommendations: Give Vancomycin 1500 mg q 24 hrs with an expected Cpeak of 29.4 mcg/ml and an expected Ctrough of 12.23 mcg/ml Renal dosing of other antibiotics (review renal dosing of other medications and list guidelines here): Thank you for the consult, will continue to follow. Signature: Romina Dickson [facility]
[2019-12-27 20:26] LABS: ABG PCO2 38.1 mmHg (35-45); ABG PH Result 7.33 (7.35-7.45); Alveolar-Arterial Oxygen Gradi 77.9 mmHg (5-10); Base Excess ABG -5.6 mmol/L (-2.0-2.0); Blood Gas Sample Site Radial, right; Blood Gas Sample Type Arterial; HCO3 ABG 19.9 mmol/L (22-26); HGB O2 Sat 90.6 % (95-100); Ionized Calcium Level - ABG 1.1 mmol/L (1.1-1.4); Oxygen Device VENT; Oxygen Saturation ABG 91.4; PO2 ABG 66.7 mmHg (80.0-100.0); Potassium Level - ABG 3.9 mmol/L (3.5-5.0); Total Hemoglobin 15.7 g/dL (14-18)
[2019-12-27] MEDS: pantoprazole 40 mg SDV IVP (21:48)
[2019-12-27] MEDS: piperacillin-tazobactam 3.375 GM in sodium chloride 0.9% (plus) 50 ML IV (21:50)
[2019-12-27] MEDS: azithromycin 500 MG in sodium chloride 0.9% 250 ML 250 MG IV (21:55)
[2019-12-28] VITALS (59 sets, daily range): BP systolic 79–139; BP diastolic 50–87; PULSE 65–87; RESP 16–26; TEMP 36.1–36.7; O2SAT 90–98
[2019-12-28] MEDS: sodium chloride 0.9% 500 ML IV (00:06)
[2019-12-28] MEDS: ipratropium-albuterol 3 mL Neb INHALATION ×5 (00:41→20:30)
[2019-12-28 02:06] LABS: Partial Thromboplastin Time 58.1 SECONDS (23.9-36.7)
[2019-12-28 02:14] LABS: Lactic Sepsis W/Reflex 2.3 mmol/L (0.5-2.2)
[2019-12-28] MEDS: piperacillin-tazobactam 3.375 GM in sodium chloride 0.9% (plus) 50 ML IV ×3 (03:30→19:43)
[2019-12-28 03:38] LABS: Reflex Lactate Order REFLEX LACTIC ORDERD
[2019-12-28 04:54] LABS: ABG PCO2 33.7 mmHg (35-45); ABG PH Result 7.39 (7.35-7.45); Alveolar-Arterial Oxygen Gradi 53.3 mmHg (5-10); Arterial Blood Gas Hematocrit 56.2 % (42-52); Base Excess ABG -3.8 mmol/L (-2.0-2.0); Blood Gas Sample Site Radial, right; Blood Gas Sample Type Arterial; Carboxyhemoglobin 0.3 %THgb (0.4-20.1); HCO3 ABG 20.2 mmol/L (22-26); HGB O2 Sat 95.6 % (95-100); Ionized Calcium Level - ABG 1.1 mmol/L (1.1-1.4); Methemoglobin 0.2 % (0.4-1.5); Oxygen Device VENT; Oxygen Saturation ABG 96.2; PO2 ABG 80.6 mmHg (80.0-100.0); Potassium Level - ABG 3.7 mmol/L (3.5-5.0); Total Hemoglobin 18.3 g/dL (14-18)
[2019-12-28 05:24] LABS: Basophils % 0.1 %; Hematocrit 39.5 % (42.0-52.0); Hemoglobin 13.3 g/dL (11.7-16.6); Lymphocytes # 0.3 10^3/uL (0.8-4.8); Lymphocytes % 3.2 %; Mean Corpuscular HGB Conc 33.7 g/dL (30.0-36.0); Mean Corpuscular Hemoglobin 31.7 pg (28.0-34.0); Mean Corpuscular Volume 94.3 fL (80-94); Monocytes # 0.5 10^3/uL (0.2-0.9); Monocytes % 4.6 %; Neutrophils # 9.23 10^3/uL (1.8-7.7); Neutrophils % 91.5 %; Nucleated Red Blood Cells % 0 %; Platelet Count 279 10^3/cmm (130-400); Red Blood Count 4.19 10^6/uL (4.1-5.3); Red Cell Distribution Width 13.7 % (12.1-15.1); White Blood Count 10.1 10^3/uL (4.0-10.0)
[2019-12-28 05:39] LABS: C Reactive Protein 192.3 mg/L (0.0-4.9)
[2019-12-28 05:44] LABS: Alanine Aminotransferase 26 U/L (0-41); Albumin Level 3.2 g/dL (3.5-5.2); Alkaline Phosphatase 56 IU/L (40-130); Aspartate Amino Transferase 56 U/L (0-40); Blood Urea Nitrogen 44 mg/dL (8-23); Calcium 8.2 mg/dL (8.5-10.5); Carbon Dioxide 19 mmol/L (22-29); Chloride 104 mmol/L (98-107); Globulin 3.2 g/dL (1.3-4.6); Glomerular Filtration Rate 33.2 mL/min (90-130); Glucose 161 mg/dL (65-115); Osmolality Calculated 303 mOsm/kg (285-295); Sodium 139 mmol/L (136-145); Total Bilirubin 0.5 mg/dL (0.15-1.2); Total Protein 6.4 g/dL (6.6-8.7)
[2019-12-28 05:46] LABS: Anion Gap 19.9 (5-19); Potassium 3.9 mmol/L (3.5-5.1)
[2019-12-28 05:49] LABS: NT Pro B Type Natriuretic Pept 3461 pg/mL (0-125)
[2019-12-28 05:50] LABS: Magnesium 2.6 mg/dL (1.7-2.3); Phosphorus 3.2 mg/dL (2.5-4.5); Thyroid Stimulating Hormone 0.72 uIU/mL (0.27-4.20)
[2019-12-28 05:57] LABS: INR 1.07 (0.8-1.2)
[2019-12-28 05:58] LABS: Partial Thromboplastin Time 64.6 SECONDS (23.9-36.7)
[2019-12-28 06:05] LABS: D Dimer 1.49 ug/mIFEU (0-0.59)
[2019-12-28 06:10] LABS: Ferritin 3431 ng/mL (30-400)
[2019-12-28 06:20] LABS: Lactic Acid level (Lactate) 1.7 mmol/L (0.5-2.2)
[2019-12-28 06:49] LABS: Erythrocyte Sedimentation Rate 96 mm/hr (0-10)
--- NOTE | 2019-12-28 07:45 | PM.CONSULT ---
Providers/Reason For Consult Consulting Physican/Specialty*: Francesca Lopes DO, telenephrology Reason for Consult*: Acute kidney injury Attending Physician: Du Sands MD Primary Care Provider: Sebas Mojica Jr, MD History of Present Illness History of Present Illness Moses Joseph is a 69 year old male admitted with COVID, pneumonia, now JULIA, VDRF. History of CKD. Levophed has been discontinued, FIO2 reduced to 60%, urine output about 300 ml/6 hours Review of Systems General: Reports: ROS unobtainable due to endotracheal tube and ROS unobtainable due to medical condition Meds/Allergies Home Medications and Allergies Home Medications Medication Instructions Recorded Confirmed Last Taken Type allopurinol 300 mg tablet 300 mg PO DAILY 04/08/19 12/27/19 Unknown History aspirin 81 mg tablet,delayed 81 mg PO DAILY 04/08/19 12/27/19 Unknown History release bumetanide 1 mg tablet 1 mg PO BID 04/08/19 12/27/19 Unknown History calcitriol 0.25 mcg capsule 0.25 mcg PO DAILY cap 04/08/19 12/27/19 Unknown History carvedilol 6.25 mg tablet 6.25 mg PO BID 04/08/19 12/27/19 Unknown History diphenhydramine HCl 25 mg capsule 25 mg PO BEDTIME PRN cap 04/08/19 12/27/19 Unknown History ferrous sulfate 325 mg (65 mg 325 mg PO BID 04/08/19 12/27/19 Unknown History iron) tablet fluvastatin 40 mg capsule 40 mg PO BID 04/08/19 12/27/19 Unknown History glucosamine sulfate 2KCl 1,000 mg 1,000 mg PO BID PRN 04/08/19 12/27/19 Unknown History tablet gabapentin 300 mg capsule See Rx Instructions PO .COMPLEX 10/06/19 12/27/19 Unknown Rx #60 cap prednisone 10 mg tablet See Rx Instructions PO .COMPLEX 10/06/19 12/27/19 Unknown Rx PRN #30 tab tofacitinib 5 mg tablet 5 mg PO DAILY #30 tab 10/06/19 12/27/19 Unknown Rx Calcium 600 + D(3) 1 tab PO DAILY 12/27/19 12/27/19 Unknown History acetaminophen [Tylenol Extra 1,000 mg PO PRN 12/27/19 12/27/19 Unknown History Strength] Allergies Allergy/AdvReac Type Severity Reaction Status Date / Time leflunomide [From Arava] Allergy Intermediate rash Verified 12/27/19 13:45 Current Medications Current Medications Generic Name Dose Route Start Last Admin Trade Name Freq PRN Reason Stop Dose Admin Albuterol/Ipratropium 3 ml 12/28/19 00:04 12/28/19 00:41 Duoneb INHALATION 3 ml Q4H PRN Administration SHORTNESS OF BREATH Azithromycin 500 mg/ Sodium 250 mls @ 250 mls/hr 12/27/19 16:30 12/28/19 07:18 Chloride IV Infused Q24H SONAM Infusion Protocol Heparin Sodium/Sodium Chloride 25,000 unit in 500 mls @ 29.03 mls/hr 12/27/19 15:00 12/27/19 19:30 Heparin Drip IV 7.17 unit/kg/hr .[id number] SONAM 13 mls/hr Administration 16 UNIT/KG/HR Propofol 1,000 mg in 100 mls @ 0 mls/hr 12/27/19 17:30 12/27/19 22:30 Diprivan IV 0 mcg/kg/min .Q0M SONAM 0 mls/hr Titration Protocol Per Protocol Dexmedetomidine HCl 400 mcg/ 104 mls @ 0 mls/hr 12/27/19 18:00 12/28/19 06:00 Sodium Chloride IV 0.2 mcg/kg/hr .Q0M SONAM 4.7 mls/hr Titration Protocol Per Protocol Piperacillin Sod/Tazobactam 50 mls @ 12.5 mls/hr 12/27/19 19:00 12/28/19 03:30 Sod 3.375 gm/ Sodium Chloride IV 12.5 mls/hr Q8H SONAM Administration Protocol Vancomycin HCl 1,500 mg/ 250 mls @ 166.667 mls/hr 12/27/19 20:00 12/28/19 07:18 Sodium Chloride IV Infused Q24H SONAM Infusion Fentanyl 1,000 mcg/ Sodium 100 mls @ 0 mls/hr 12/27/19 20:15 12/28/19 06:02 Chloride IV 50 mcg/hr .Q0M SONAM 5 mls/hr Titration Protocol Per Protocol Midazolam HCl 100 mg/ Sodium 100 mls @ 0 mls/hr 12/27/19 20:15 12/27/19 22:30 Chloride IV 2 mg/hr .Q0M SONAM 2 mls/hr Administration Protocol Per Protocol Norepinephrine Bitartrate 4 mg 254 mls @ 0 mls/hr 12/27/19 23:00 12/28/19 04:00 / Dextrose IV 1 mcg/min .Q0M SONAM 3.8 mls/hr Titration Protocol Per Protocol Pantoprazole Sodium 40 mg 12/27/19 16:00 12/27/19 21:48 Protonix IVP 40 mg Q24H SONAM Administration PFSH Acute PFSH: Medical History CKD (chronic kidney disease) Gout High risk medication use Immunization counseling Immunosuppression Iron deficiency anemia Seropositive rheumatoid arthritis of multiple joints Surgical History History of tonsillectomy Hx of appendectomy Family History Other Cancer Hypertension Denies family history of Rheumatoid arthritis Diabetes Systemic lupus erythematosus (SLE) in adult Social History Smoking and tobacco status: former smoker Quit status (tobacco): has quit using tobacco Year quit tobacco: 1969 Alcohol intake: never Lives independently: No Household members: spouse Marital status: History of recent travel: No Vitals/I&O/Wt Last Vital Signs Temp 97.4 F L 12/28/19 04:30 Pulse 77 12/28/19 04:45 Resp 20 H 12/28/19 04:05 BP 97/67 12/28/19 04:45 Pulse Ox 95 12/28/19 04:45 12/27/19 12/28/19 12/28/19 22:59 06:59 14:59 Intake Total 101.821 / 201.821 162.708 / 364.529 500 / 500 Output Total 250 / 250 250 / 500 Balance -148.179 / -48.179 -87.292 / -135.471 500 / 500 Weight last 48 hrs Weight 88.904 kg Weight 90.718 kg Physical Exam Const: COMMON NORMALS: no acute distress OTHER: intubated Resp: AUSCULTATION: rhonchi Cardio: COMMON NORMALS: regular rate and regular rhythm RATE: regular rate RHYTHM: regular rhythm Urinary Catheter Management^: Muniz: Cath Placed During This Visit: yes Reason for Continuing Indwelling Catheter: Accurate Measurement of Urinary Output in Critically Ill Patients Urinary Catheter Date of Insertion: 12/27/19 Urinary Catheter Time of Insertion: 17:59 Data Labs: Other Labs: 7.39/33.7/80.6 lactate 2.3, albumin 3.2, Calcium 8.2, Phos 3.2, Mg 2.6 Micro: Micro: Microbiology 12/27/19 14:20 Gram Stain - Final Sputum - Expector ated Sputum 12/27/19 12:45 Blood Culture - Pr eliminary Blood SPECIMEN COLLEC PRANAV 12/27/19 12:40 Blood Culture - Pr eliminary Blood SPECIMEN COLLEC PRANAV Other Data: Other data: CXR 12/27/2019: Nonspecific bibasilar consolidation is present, consistent with atelectasis, edema, or pneumonia. There is mild vascular congestion with cephalization of flow, interstitial edema and ground-glass opacities compatible with CHF. A&P Additional A&P Information 1. Acute kidney injury, nonoliguric 2. VDRF, COVID, pnuemonia 3. Lactic acidosis, pH normal (respiratory alk), on oral sodium bicarbonate 4. Chronic kidney disease Recommend: continue current supportive care. IV lasix prn keep I=O. Will follow with you. 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
[2019-12-28] MEDS: budesonide 0.5 mg/2 mL Neb 0.25 MG INHALATION ×2 (07:52→20:30)
[2019-12-28 08:23] LABS: Partial Thromboplastin Time 55.8 SECONDS (23.9-36.7)
[2019-12-28] MEDS: dexmedetomidine 400 MCG in sodium chloride 0.9% (100 ml) 100 ML IV ×2 (09:20→23:12)
[2019-12-28] MEDS: atorvastatin 40 mg Tablet 20 MG PO (10:44)
[2019-12-28] MEDS: aspirin 81 mg EC Tablet PO (10:44)
[2019-12-28] MEDS: calcium carb-vit d 600mg/400unit 1 Tablet 1 EACH PO (10:47)
[2019-12-28] MEDS: calcitriol 0.25 mcg Capsule PO (10:47)
[2019-12-28] MEDS: allopurinol 300 mg Tablet PO (10:47)
[2019-12-28] MEDS: sodium bicarbonate 650 mg Tablet 1300 MG PO (10:49)
[2019-12-28] MEDS: dexamethasone 4 mg/mL INJ 6 MG IVP (12:30)
[2019-12-28 13:32] LABS: Partial Thromboplastin Time 51.1 SECONDS (23.9-36.7)
[2019-12-28] MEDS: heparin drip 25,000 UNIT/500 ML PREMIX 13 UNIT IV (14:19)
[2019-12-28] MEDS: pantoprazole 40 mg SDV IVP (15:30)
[2019-12-28 16:43] LABS: ABG PCO2 34.2 mmHg (35-45); ABG PH Result 7.38 (7.35-7.45); Alveolar-Arterial Oxygen Gradi 23.3 mmHg (5-10); Arterial Blood Gas Hematocrit 42.1 % (42-52); Base Excess ABG -3.9 mmol/L (-2.0-2.0); Blood Gas Allen Test Pos; Blood Gas Operator Identificat BD; Blood Gas Sample Site Radial, left; Blood Gas Sample Type Arterial; Carboxyhemoglobin 0.9 %THgb (0.4-20.1); HCO3 ABG 20.4 mmol/L (22-26); HGB O2 Sat 90.9 % (95-100); Ionized Calcium Level - ABG 1.1 mmol/L (1.1-1.4); Methemoglobin 0.7 % (0.4-1.5); Oxygen Device VENT; Oxygen Saturation ABG 92.4; PO2 ABG 63.5 mmHg (80.0-100.0); Potassium Level - ABG 3.5 mmol/L (3.5-5.0); Total Hemoglobin 13.7 g/dL (14-18)
[2019-12-28] MEDS: azithromycin 500 MG in sodium chloride 0.9% 250 ML 250 MG IV (17:46)
--- NOTE | 2019-12-28 18:04 | PM.PN ---
Subjective Subjective: Interval history: Currently patient is intubated and sedated.Off sedation GCS is 10 T. Am ABG Ph:7.39,pco2:33,po2:80 fio2:75% p/f:80/.75 He was on minimal levophed overnight.Has remained afebrile. labs reviewed. Medications: Reviewed: Yes Vitals/I&O/Wt Last Vital Signs Temp 97.0 F L 12/28/19 08:00 Pulse 77 12/28/19 16:00 Resp 18 12/28/19 16:03 BP 95/58 12/28/19 16:00 Pulse Ox 91 12/28/19 16:00 12/28/19 12/28/19 12/28/19 06:59 14:59 22:59 Intake Total 162.708 / 364.529 922.317 / 922.317 Output Total 250 / 500 550 / 550 Balance -87.292 / -135.471 922.317 / 922.317 -550 / 372.317 Weight last 48 hrs Weight 88.904 kg Weight 90.718 kg Physical Exam Const: COMMON NORMALS: patient oriented x3 HENMT: COMMON NORMALS: normocephalic and atraumatic HEAD & SCALP: normocephalic and atraumatic Eye: COMMON NORMALS: no scleral icterus GENERAL EYE: appearance normal, both eyes and all related structures Chest: COMMONS NORMALS: normal inspection of the chest and normal palpation of entire chest wall CHEST: Yes Symmetrical chest wall rise Resp: OTHER: minimal basal crackles,diminished air entry at bases,and occasional ronchii Cardio: COMMON NORMALS: regular rate, regular rhythm, S1 normal heart sound present, S2 normal heart sound present, No gallops present (Cardio), No murmurs present (Cardio), No rub (Cardio) and Peripheral pulses 2+ throughout RATE: regular rate RHYTHM: regular rhythm HEART SOUNDS: S1 normal heart sound present and S2 normal heart sound present PERIPHERAL PULSES: Peripheral pulses 2+ throughout GI: COMMON NORMALS: Normal to inspection, nondistended, normoactive bowel sounds present, Soft to palpation, non-tender, No hepatosplenomegaly present and no masses AUSCULTATION: Yes normoactive bowel sounds PALPATION: Yes Soft to palpation and Yes No hepatosplenomegaly present RECTAL EXAM: Yes deferred Extremity: COMMON NORMALS: no clubbing, cyanosis or edema and no pedal edema Neuro: COMMON NORMALS: patient oriented x3 Urinary Catheter Management^: Muniz: Cath Placed During This Visit: yes Reason for Continuing Indwelling Catheter: Accurate Measurement of Urinary Output in Critically Ill Patients Urinary Catheter Date of Insertion: 12/27/19 Urinary Catheter Time of Insertion: 17:59 Data : 12/29/19 01:30 12/29/19 02:30 Micro: Microbiology 12/27/19 12:45 Blood Culture - Preliminary Blood NEGATIVE TO DATE 12/27/19 12:40 Blood Culture - Preliminary Blood NEGATIVE TO DATE 12/27/19 14:20 Gram Stain - Final Sputum - Expectorated Sputum Sputum Culture - Preliminary A&P Assessment and plan (1) Pneumonia due to COVID-19 virus: Status: Acute (2) Gout: Continue Allopurinol Status: Acute (3) CKD (chronic kidney disease): Monitor BMP Renal dosing of Medications. Status: Acute (4) Seropositive rheumatoid arthritis of multiple joints: Status: Acute (5) Iron deficiency anemia: Monitor CBC Status: Acute Additional A&P Information #Ac Hypoxic R.F 2/2 COVID PNA: Continue Remdesevir (12/27),Likely 5 to 10 days course Continue Dexamethasone (12/27) Continue :Vancomycin ,zosyn and Jess Trend Cytokine jimbo inflammatory marker ( ESR,CRP,Ferritin,Ddimer,IL6 ) Currently on full anticog. CTA once renal status improve Continue mechanical ventilation Pulmonary consult in am Serial ABG Serial x-ray chest. JULIA ON CKD:Currently SCR Trended up to 2. Monitor BMP,U/O,I/O Avoid nephrotoxic Renal dosing of medications. #Lactic acidosis:Likely 2/2 sepsis,hypotension,or worsening renal failure. Will repeat lactic acid. 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
--- NOTE | 2019-12-28 18:06 | PM.ACPR ---
Procedure/Consent Consent: Consent for Procedure: Consent obtained from other (indicate) Acute Procedures Central Line Placement^: Right Femoral: Time out performed: Yes Patient placed on monitor/pulse ox: Yes MD prep: mask, gown and gloves Central line prep: Chlorhexidine scrub Local anesthesia used: lidocaine 2% Amount of anesthesia used (ml): 5 Ultrasound used for placement: Yes Central line lumen inserted: triple Post procedure: sutured in place and sterile dressing applied Patient tolerated procedure: well Complications: none
[2019-12-28 19:39] LABS: Partial Thromboplastin Time 60.2 SECONDS (23.9-36.7)
[2019-12-29] VITALS (79 sets, daily range): BP systolic 86–137; BP diastolic 53–80; PULSE 58–91; RESP 15–25; TEMP 36.2–37.6; O2SAT 84–98
[2019-12-29] MEDS: ipratropium-albuterol 3 mL Neb INHALATION ×5 (00:30→19:54)
[2019-12-29 02:07] LABS: Basophils % 0.1 %; Hematocrit 37.4 % (42.0-52.0); Hemoglobin 12.7 g/dL (11.7-16.6); Lymphocytes # 0.2 10^3/uL (0.8-4.8); Lymphocytes % 2.4 %; Mean Corpuscular Hemoglobin 31.9 pg (28.0-34.0); Mean Platelet Volume 10.8 fL (7.4-10.4); Monocytes # 0.4 10^3/uL (0.2-0.9); Monocytes % 3.6 %; Neutrophils # 9.38 10^3/uL (1.8-7.7); Neutrophils % 93.5 %; Nucleated Red Blood Cells % 0 %; Platelet Count 244 10^3/cmm (130-400); Red Blood Count 3.98 10^6/uL (4.1-5.3); Red Cell Distribution Width 13.7 % (12.1-15.1)
[2019-12-29] MEDS: piperacillin-tazobactam 3.375 GM in sodium chloride 0.9% (plus) 50 ML IV ×3 (02:38→19:41)
[2019-12-29 03:01] LABS: INR 1.11 (0.8-1.2)
[2019-12-29 03:03] LABS: Partial Thromboplastin Time 61.2 SECONDS (23.9-36.7)
[2019-12-29 03:07] LABS: Alanine Aminotransferase 23 U/L (0-41); Alkaline Phosphatase 55 IU/L (40-130); Anion Gap 15.5 (5-19); Aspartate Amino Transferase 38 U/L (0-40); Blood Urea Nitrogen 45 mg/dL (8-23); Carbon Dioxide 22 mmol/L (22-29); Chloride 106 mmol/L (98-107); Globulin 3.2 g/dL (1.3-4.6); Glomerular Filtration Rate 37.5 mL/min (90-130); Glucose 202 mg/dL (65-115); Magnesium 2.8 mg/dL (1.7-2.3); Osmolality Calculated 307 mOsm/kg (285-295); Phosphorus 3.1 mg/dL (2.5-4.5); Potassium 3.5 mmol/L (3.5-5.1); Sodium 140 mmol/L (136-145); Total Bilirubin 0.4 mg/dL (0.15-1.2); Total Protein 6.2 g/dL (6.6-8.7)
[2019-12-29 04:53] LABS: ABG PCO2 36.2 mmHg (35-45); ABG PH Result 7.39 (7.35-7.45); Arterial Blood Gas Hematocrit 48.1 % (42-52); Base Excess ABG -2.5 mmol/L (-2.0-2.0); Blood Gas Sample Site Radial, right; Blood Gas Sample Type Arterial; HCO3 ABG 21.9 mmol/L (22-26); Oxygen Device VENT; PO2 ABG 80.3 mmHg (80.0-100.0)
--- NOTE | 2019-12-29 06:00 | XR_ITS ---
WS: [id number] Exam: XR chest 1V portable [id number] Date/Time of Exam: 12/29/2019 6:00 AM Reason For Exam: pna Comparison 12/27/2019. Cardiac enlargement with pulmonary vascular congestion. There are infiltrates in the noted throughout the right lung as well as the mid left lung. No significant change. An ET tube remains at about the level of T4 and in good position. An NG tube is in place in the fundus of the stomach. A permanent ca rdiac pacemaker superimposes the left chest. Monitoring leads superimpose the chest. Probable small l eft basal pleural effusion. Overall, no significant change since prior study. XR/XR chest 1V portable [id number] IMPRESSION: 1. Chest radiograph showing no significant change since previous study.
[2019-12-29] MEDS: budesonide 0.5 mg/2 mL Neb 0.25 MG INHALATION ×2 (07:54→19:54)
[2019-12-29] MEDS: heparin drip 25,000 UNIT/500 ML PREMIX 15 UNIT IV (08:14)
[2019-12-29] MEDS: allopurinol 300 mg Tablet PO (08:15)
[2019-12-29] MEDS: sodium bicarbonate 650 mg Tablet 1300 MG PO ×3 (08:17→22:36)
[2019-12-29] MEDS: calcitriol 0.25 mcg Capsule PO (08:17)
[2019-12-29] MEDS: calcium carb-vit d 600mg/400unit 1 Tablet 1 EACH PO (08:19)
[2019-12-29] MEDS: atorvastatin 40 mg Tablet 20 MG PO (08:25)
[2019-12-29] MEDS: aspirin 81 mg EC Tablet PO (08:25)
--- NOTE | 2019-12-29 11:42 | PM.PN ---
Subjective Medications: Reviewed: Yes Vitals/I&O/Wt Last Vital Signs Temp 98.1 F 12/29/19 04:00 Pulse 88 12/29/19 11:17 Resp 25 H 12/29/19 11:12 BP 101/61 12/29/19 06:00 Pulse Ox 92 12/29/19 11:08 12/28/19 12/29/19 12/29/19 22:59 06:59 14:59 Intake Total 458.917 / 1481.234 136.330 / 1617.564 601.000 / 601.000 Output Total 550 / 550 650 / 1200 Balance -91.083 / 931.234 -513.670 / 417.564 601.000 / 601.000 Weight last 48 hrs Weight 87.997 kg Weight 88.904 kg Weight 90.718 kg Physical Exam Urinary Catheter Management^: Muniz: Cath Placed During This Visit: yes Reason for Continuing Indwelling Catheter: Accurate Measurement of Urinary Output in Critically Ill Patients Urinary Catheter Date of Insertion: 12/27/19 Urinary Catheter Time of Insertion: 17:59 Data : 12/29/19 01:30 12/29/19 02:30 Micro: Microbiology 12/27/19 12:45 Blood Culture - Preliminary Blood NEGATIVE TO DATE 12/27/19 12:40 Blood Culture - Preliminary Blood NEGATIVE TO DATE 12/27/19 14:20 Gram Stain - Final Sputum - Expectorated Sputum Sputum Culture - Preliminary A&P Additional A&P Information 1. Acute kidney injury, renal function improved 2. VDRF, COVID, pnuemonia 3. Lactic acidosis, pH normal (respiratory alk), on oral sodium bicarbonate 4. Chronic kidney disease Recommend: no new recommendations Attestations Medical Necessity Statement*: critically ill, VDRF Time Spent in Patient Care: less than 15 minutes Coding Level of Care Code Acute B2B Sales Professional for Curly Franz
[2019-12-29] MEDS: dexamethasone 4 mg/mL INJ 6 MG IVP (12:17)
[2019-12-29] MEDS: pantoprazole 40 mg SDV IVP (14:18)
--- NOTE | 2019-12-29 14:31 | PM.PN ---
Subjective Subjective: Interval history: Remains on ventilator support and sedation, FiO2 50%, ABG this morning appropriate. Hemodynamically stable, afebrile. Had 650 mL urine output overnight. Remains on broad-spectrum antibiotics, on day 3 of remdesivir. Chest x-ray this morning unchanged. Not requiring much in the way of suctioning, though when done noted grayish thick sputum in tubing. Medications: Reviewed: Yes Medication Review Details: Active Medications Generic Name Dose Route Start Last Admin Trade Name Freq PRN Reason Stop Dose Admin Acetaminophen 650 mg 12/27/19 14:38 Tylenol PO Q6H PRN Mild/Mod Pain Or Temp >/= 101 Albuterol/Ipratrop ium 3 ml 12/28/19 00:04 12/29/19 11:08 Duoneb INHALATION 3 ml Q4H PRN Administration SHORTNESS OF GAYLA TH Allopurinol 300 mg 12/28/19 09:00 12/29/19 08:15 Zyloprim PO 300 mg DAILY SONAM Administration Aspirin 81 mg 12/28/19 09:00 12/29/19 08:25 Aspirin Ec PO 81 mg DAILY SONAM Administration Atorvastatin Calci um 20 mg 12/28/19 09:00 12/29/19 08:25 Lipitor PO 20 mg DAILY SONAM Administration Bisacodyl 10 mg 12/27/19 14:38 Dulcolax PO DAILY PRN CONSTIPATION Budesonide 0.25 mg 12/28/19 08:00 12/29/19 07:54 Pulmicort INHALATION 0.25 mg BID.RESPIRATORY [facility] Administration Calcitriol 0.25 mcg 12/28/19 09:00 12/29/19 08:17 Rocaltrol PO 0.25 mcg DAILY SONAM Administration Calcium Carbonate 1 each 12/28/19 09:00 12/29/19 08:19 Oyster Shell 600 mg-Vit D 400unit PO 1 each DAILY SONAM Administration Dexamethasone 6 mg 12/28/19 12:00 12/29/19 12:17 Decadron IVP 6 mg Q24H SONAM Administration Diphenhydramine HC l 25 mg 12/27/19 16:47 Benadryl PO BEDTIME PRN Sleep Hydromorphone HCl 2 mg 12/27/19 14:38 Dilaudid Tab PO Q6H PRN SEVERE PAIN remdesivir (EUA) 1 00 mg/ 100 mls @ 100 mls /hr 12/28/19 13:00 12/29/19 13:24 Sodium Chloride IV 12/31/19 13:59 100 mls/hr Q24H SONAM Administration Azithromycin 500 m g/ Sodium 250 mls @ 250 mls /hr 12/27/19 16:30 12/28/19 18:47 Chloride IV Infused Q24H SONAM Infusion Protocol Heparin Sodium/Sod ium Chloride 25,000 unit in 50 0 mls @ 29.03 mls/ hr 12/27/19 15:00 12/29/19 08:14 Heparin Drip IV 8.27 unit/kg/hr .[id number] SONAM 15 mls/hr Administration 16 UNIT/KG/HR Propofol 1,000 mg in 100 m ls @ 0 mls/hr 12/27/19 17:30 12/27/19 22:30 Diprivan IV 0 mcg/kg/min .Q0M SONAM 0 mls/hr Titration Protocol Per Protocol Dexmedetomidine HC l 400 mcg/ 104 mls @ 0 mls/h r 12/27/19 18:00 12/29/19 12:36 Sodium Chloride IV 0.3 mcg/kg/hr .Q0M SONAM 7.1 mls/hr Titration Protocol Per Protocol Piperacillin Sod/T azobactam 50 mls @ 12.5 mls /hr 12/27/19 19:00 12/29/19 12:17 Sod 3.375 gm/ So dium Chloride IV 12.5 mls/hr Q8H SONAM Administration Protocol Vancomycin HCl 1,5 00 mg/ 250 mls @ 166.667 mls/hr 12/27/19 20:00 12/29/19 08:27 Sodium Chloride IV Infused Q24H SONAM Infusion Fentanyl 1,000 mcg / Sodium 100 mls @ 0 mls/h r 12/27/19 20:15 12/29/19 08:12 Chloride IV 25 mcg/hr .Q0M SONAM 2.5 mls/hr Administration Protocol Per Protocol Midazolam HCl 100 mg/ Sodium 100 mls @ 0 mls/h r 12/27/19 20:15 12/29/19 02:00 Chloride IV 2 mg/hr .Q0M SONAM 2 mls/hr Titration Protocol Per Protocol Norepinephrine Bit artrate 4 mg 254 mls @ 0 mls/h r 12/27/19 23:00 12/28/19 13:00 / Dextrose IV 0 mcg/min .Q0M SONAM 0 mls/hr Titration Protocol Per Protocol Morphine Sulfate 2 mg 12/27/19 14:38 Morphine IVP Q4H PRN SEVERE PAIN Naloxone HCl 0.1 mg 12/27/19 14:38 Narcan IVP Q2M PRN OPIATERV Ondansetron HCl 4 mg 12/27/19 14:38 Zofran IVP Q8H PRN vomiting, or N/V if npo Pantoprazole Sodiu m 40 mg 12/27/19 16:00 12/28/19 15:30 Protonix IVP 40 mg Q24H SONAM Administration Sodium Bicarbonate 1,300 mg 12/28/19 10:45 12/29/19 13:57 Sodium Bicarbona te PO 1,300 mg TID SONAM Administration leflunomide [From Arava] Allergy (Intermediate, Verified 12/27/19 13:45) rash Vitals/I&O/Wt Last Vital Signs Temp 97.2 F L 12/29/19 08:00 Pulse 87 12/29/19 13:00 Resp 18 12/29/19 13:22 BP 114/63 12/29/19 13:00 Pulse Ox 93 12/29/19 13:00 12/28/19 12/29/19 12/29/19 22:59 06:59 14:59 Intake Total 458.917 / 1481.234 136.330 / 1617.564 696.000 / 696.000 Output Total 550 / 550 650 / 1200 Balance -91.083 / 931.234 -513.670 / 417.564 696.000 / 696.000 Weight last 48 hrs Weight 87.997 kg Weight 88.904 kg Physical Exam Const: COMMON NORMALS: no acute distress GENERAL APPEARANCE: patient mechanically ventilated OTHER: -sedated HENMT: COMMON NORMALS: normocephalic and atraumatic HEAD & SCALP: normocephalic and atraumatic OTHER: -orally intubated; ETT- 25 cm at lip Eye: COMMON NORMALS: Equal, round and reactive pupils present, EOMs intact bilaterally and conjunctivae normal CONJUNCTIVA: Yes conjunctivae normal PUPIL: Yes Equal, round and reactive pupils present Neck/C-Spine: COMMON NORMALS: full ROM GENERAL: Yes normal visual inspection and Yes trachea midline Resp: COMMON NORMALS: normal respiratory effort, No retractions and No use of accessory muscles EFFORT & INSPECTION: Yes symmetric chest movement and Yes tachypneic AUSCULTATION: rhonchi and diminished lung sounds OTHER: -on vent support (500/50%/12) -thick grayish sputum in tubing Cardio: COMMON NORMALS: regular rate, regular rhythm, S1 normal heart sound present, S2 normal heart sound present and No murmurs present (Cardio) RATE: regular rate RHYTHM: regular rhythm HEART SOUNDS: S1 normal heart sound present and S2 normal heart sound present GI: COMMON NORMALS: Normal to inspection, nondistended, normoactive bowel sounds present, Soft to palpation and non-tender PALPATION: Yes Soft to palpation : BLADDER/KIDNEY EXAM: Yes catheter in place Catheter type (Male): urethral Extremity: COMMON NORMALS: normal to inspection, full ROM and no clubbing, cyanosis or edema; negative for no pedal edema Neuro: OTHER: -sedated Psych: OTHER: -sedated; on fentanyl, versed, precedex Skin: COMMON NORMALS: no rashes or lesions noted, no jaundice, no petechiae and no mottling GENERAL SKIN EXAM: no rashes or lesions noted Urinary Catheter Management^: Muniz: Cath Placed During This Visit: yes Reason for Continuing Indwelling Catheter: Accurate Measurement of Urinary Output in Critically Ill Patients Urinary Catheter Date of Insertion: 12/27/19 Urinary Catheter Time of Insertion: 17:59 Data : 12/29/19 01:30 12/29/19 02:30 Micro: Microbiology 12/27/19 14:20 Gram Stain - Final Sputum - Expectorated Sputum Sputum Culture - Final 12/27/19 12:45 Blood Culture - Preliminary Blood NEGATIVE TO DATE 12/27/19 12:40 Blood Culture - Preliminary Blood NEGATIVE TO DATE A&P Assessment and plan (1) Respiratory failure with hypoxia: -Acute hypoxic respiratory failure requiring intubation in the ER on admission; remains on ventilator support with gradually decreasing oxygen requirement -Weaning trial when appropriate; if continued need for ventilation, may need tube feeds started -Continued close monitoring of respiratory status -Continue empiric antibiotic coverage -On day 3 of remdesivir -Continue IV steroids, supportive care -Continue to trend inflammatory markers -Chest x-ray today unchanged -sputum cx; mixed khloe, gram stain polymicrobial Status: Acute Qualifiers: Chronicity: acute Qualified Code(s): J96.01 - Acute respiratory failure with hypoxia (2) Pneumonia due to COVID-19 virus: -Imaging including CT of the chest consistent with viral pneumonia secondary to COVID-19 infection -Treatment as noted above -Not oxygen dependent at baseline, home oxygen evaluation prior to discharge if appropriate Status: Acute (3) CKD (chronic kidney disease): -JULIA on CKD stage 2 -Baseline creatinine appears to be around 1 -Noted improvement in renal function, continue to monitor -Renally dose meds, avoid nephrotoxins -Nephrology consultation appreciated Status: Acute Qualifiers: Chronic kidney disease stage: stage 2 (mild) Qualified Code(s): N18.2 - Chronic kidney disease, stage 2 (mild) (4) Seropositive rheumatoid arthritis of multiple joints: -Follows up with Dr. Macias -Is on chronic steroids and Xeljanz; has had difficulty tolerating alternative treatment Status: Chronic Additional A&P Information -History of combined systolic and diastolic CHF; s/p pacemaker, defibrillator; f/u with cardiology. Echo (2018): EF=31%, G1DD, global LV hypokinesis, mild MR, trace AR, mild TR, trace OK -hx of gout -hx of iron deficiency anemia; H/H stable -prior hx of Erlichiosis with sepsis and multi-organ failure -NPO due to vent support -GI ppx with PPI -DVT ppx not needed as on heparin drip -Dispo: home -Code status: FULL code Attestations Medical Necessity Statement*: Patient requires hospitalization for continued treatment of COVID-19 pneumonia, remains on ventilator support, antiviral and broad-spectrum IV antibiotic treatment. Time Spent in Patient Care: Greater than 35 minutes (>than 50% of time spent in counselling and/or direct pt care on unit). Coding Level of Care Code Acute Operational Risk Consultant for Chg Fwd Exam Comprehensive Diagnoses Respiratory failure with hypoxia J96.01 Chronicity: acute Pneumonia due to COVID-19 virus U07.1; J12.89 CKD (chronic kidney disease) N18.2 Chronic kidney disease stage: stage 2 (mild) Seropositive rheumatoid arthritis of multiple joints M05.79
[2019-12-29] MEDS: azithromycin 500 MG in sodium chloride 0.9% 250 ML 250 MG IV (16:00)
--- NOTE | 2019-12-29 18:06 | PC.RESP ---
pt. in prone
--- NOTE | 2019-12-29 18:26 | PC.NURSE ---
family updated mid morning. patient stable and fio2 weaned to 50%. at 1730 patient pronated with head turned to the right. his left ear lobe was blistered from previous night and this allowed it to continue to heal and drain. barrier cream was put on lobe as well.
[2019-12-29] MEDS: dexmedetomidine 400 MCG in sodium chloride 0.9% (100 ml) 100 ML 14.2 MCG IV (21:56)
[2019-12-29 21:58] LABS: Urine Appearance Hazy (CLEAR); Urine Color Yellow (Yellow)
[2019-12-29 21:59] LABS: Add Urine Microscopic? YES; Bilirubin Urine Neg (Negative); Blood Urine 3+ (Negative); Glucose Urine UA Norm (Normal); Ketones Urine Negative (Negative); Leukocyte Esterase Urine Negative (Negative); Nitrate Urine Negative (Negative); Protein Urine Trace (Negative); Specific Gravity, Urine 1.015 (1.005-1.030); Urobilinogen Urine Norm (Negative); pH Urine 5 (5-7)
[2019-12-29 22:02] LABS: Add Urine Culture? Yes; Amorphous Sediment Urine 2+ /hpf; Bacteria Urine TRACE /hpf; Mucus Urine TRACE /hpf; RBC Urine 15-25 /hpf (0-2); Squamous Epithelial Cell Urine 0-4 /hpf (0-5)
[2019-12-29 22:25] LABS: Vancomycin Trough 11.6 ug/mL (10-15)
[2019-12-30] VITALS (41 sets, daily range): BP systolic 128–151; BP diastolic 66–81; PULSE 0–97; RESP 12–24; TEMP 36.6–37.7; O2SAT 88–99
--- NOTE | 2019-12-30 00:57 | XR_ITS ---
WS: [id number] Exam: XR chest 1V portable [id number] Date/Time of Exam: 12/30/2019 12:57 AM Reason For Exam: check for OG and ETT placement Findings: Comparison 12/29/2019. Bilateral pulmonary infiltrates unchanged. Heart size is stable. ET tube begins about 6 cm above the warren unchanged in position. An enteric tube extends below the diaphragm however the tip is not visi ble. Prominent cardiac pacer superimposes the left chest. The mediastinum is not widened. XR/XR chest 1V portable [id number] IMPRESSION: 1. Bilateral pulmonary infiltrates. Overall no change since previous study. 2. ET tube and enteric tube appear to remain in satisfactory position.
--- NOTE | 2019-12-30 01:19 | PC.NURSE ---
As the nursing staff was going to turn pt from his right side to left side while proned it was observed that the pt's left eye was extremely swollen (to the point that pt wouldn't have been able to open his eye if he were awake) Also observed during earlier assessment that pt was leaking bile from his mouth, so suction was turned on. RT had noticed earlier in the night that the ET tube was not in the position that she was told during report so had made plans to reposition ET tube at time of repositioning pt. Notified Dr Banks of pt eye swelling and was advised to turn pt to back at this time. With the help of several nurses we repositioned the pt to his back. At that time the RT proceded to change out the tube goode. While removing the cheek pieces some skin from the left cheek peeled off (approx 1.5 x2 cm area) The right side was removed without incident. When the new ET tube goode was placed, 2x2 pieces of gauze were placed between the goode and the skin to prevent another similar occurrence. While fixing the ET tube placement it was observed that the OG was coiled up in the pts mouth. At that time I uncoiled it and repositioned the OG. An xray was ordered to confirm placement of both ET tube and OG. Physician was notified and stated that they were in good position to be used. Pt was placed on suction.
[2019-12-30] MEDS: ipratropium-albuterol 3 mL Neb INHALATION ×5 (01:47→20:51)
--- NOTE | 2019-12-30 02:28 | PC.RESP ---
At 0100 nursing staff and I were turning pt from his right side to left side while proned. It was observed that the pt's left eye was extremely swollen and gastric content was leaking out of his mouth. Dr. Banks was notified and requested the pt be turned onto his back. I noticed the ET tube was not in the right position as was given in report and planned to reposition the tube after turning him. When placing pt in supine position the OG tube was also observed to be coiled up in his mouth. As I proceeded to change out the ET tube goode, a small piece (1.5x2 cm) of skin came off with the goode. A piece of 2x2 gauze was placed over the skin tear site and the right cheek as well to prevent any further damage to pt's face. ET was advanced to 25 cm as previously reported and documented. The RN then uncoiled the OG tube and repositioned it. Xray was taken to confirm OG and ET tube placements. Dr. Banks was notified and confirmed good placement of OG and ET tube. Pt was then placed back on suction.
[2019-12-30] MEDS: piperacillin-tazobactam 3.375 GM in sodium chloride 0.9% (plus) 50 ML IV ×3 (03:35→17:20)
[2019-12-30 05:44] LABS: Basophils % 0.1 %; Hematocrit 36.9 % (42.0-52.0); Lymphocytes # 0.2 10^3/uL (0.8-4.8); Mean Corpuscular HGB Conc 32.5 g/dL (30.0-36.0); Mean Corpuscular Hemoglobin 32.1 pg (28.0-34.0); Mean Corpuscular Volume 98.7 fL (80-94); Mean Platelet Volume 10.1 fL (7.4-10.4); Monocytes # 0.4 10^3/uL (0.2-0.9); Monocytes % 4.4 %; Neutrophils # 7.87 10^3/uL (1.8-7.7); Neutrophils % 92.6 %; Nucleated Red Blood Cells % 0 %; Platelet Count 248 10^3/cmm (130-400); Red Blood Count 3.74 10^6/uL (4.1-5.3); White Blood Count 8.5 10^3/uL (4.0-10.0)
[2019-12-30] MEDS: dexmedetomidine 400 MCG in sodium chloride 0.9% (100 ml) 100 ML 14.2 MCG IV (05:50)
[2019-12-30 06:22] LABS: Alanine Aminotransferase 25 U/L (0-41); Albumin Level 3.1 g/dL (3.5-5.2); Alkaline Phosphatase 57 IU/L (40-130); Aspartate Amino Transferase 41 U/L (0-40); Blood Urea Nitrogen 39 mg/dL (8-23); Calcium 7.5 mg/dL (8.5-10.5); Carbon Dioxide 24 mmol/L (22-29); Chloride 109 mmol/L (98-107); Globulin 2.9 g/dL (1.3-4.6); Glucose 194 mg/dL (65-115); Magnesium 3.1 mg/dL (1.7-2.3); Osmolality Calculated 311 mOsm/kg (285-295); Phosphorus 4.1 mg/dL (2.5-4.5); Sodium 143 mmol/L (136-145); Total Bilirubin 0.4 mg/dL (0.15-1.2)
[2019-12-30 06:28] LABS: Lactate Dehydrogenase 516 U/L (135-225); NT Pro B Type Natriuretic Pept 7884 pg/mL (0-125)
[2019-12-30 06:41] LABS: Ferritin 3886 ng/mL (30-400)
[2019-12-30 06:53] LABS: INR 1.18 (0.8-1.2)
[2019-12-30 07:28] LABS: Fibrinogen 587 mg/dL (174-498)
[2019-12-30 07:31] LABS: D Dimer 0.92 ug/mIFEU (0-0.59)
[2019-12-30] MEDS: budesonide 0.5 mg/2 mL Neb 0.25 MG INHALATION ×2 (07:38→20:51)
--- NOTE | 2019-12-30 08:34 | XR_ITS ---
WS: [id number] Exam: XR chest 1V portable [id number] Date/Time of Exam: 12/30/2019 8:34 AM Reason For Exam: Follow up, vent patient Findings: Compared to an earlier exam on the same day performed at 0114 hours. Bilateral pulmonary infiltrates show improvement since the earlier exam. There are still infiltrates throughout the right lung as well as the mid and lower left lung zone. Heart size is unchanged. ET tu be and enteric tube both are unchanged in position. Left-sided cardiac pacer noted. XR/XR chest 1V portable [id number] IMPRESSION: 1. Improved bilateral pulmonary infiltrates since the previous exam. No other s ignificant change.
--- NOTE | 2019-12-30 08:56 | PM.PN ---
Subjective Subjective: Interval history: intubated, sedated- can not obtain a ROS Medications: Reviewed: Yes Medication Review Details: Current Medications Acetaminophen (Tylenol) 650 mg PO Q6H PRN PRN Reason: Mild/Mod Pain Or Temp >/= 101 Albuterol/Ipratropium (Duoneb) 3 ml INHALATION Q4H PRN PRN Reason: SHORTNESS OF BREATH Last Admin: 12/30/19 07:38 Dose: 3 ml Documented by: Allopurinol (Zyloprim) 300 mg PO DAILY [facility] Last Admin: 12/29/19 08:15 Dose: 300 mg Documented by: Aspirin (Aspirin Ec) 81 mg PO DAILY SONAM Last Admin: 12/29/19 08:25 Dose: 81 mg Documented by: Atorvastatin Calcium (Lipitor) 20 mg PO DAILY [facility] Last Admin: 12/29/19 08:25 Dose: 20 mg Documented by: Bisacodyl (Dulcolax) 10 mg PO DAILY PRN PRN Reason: CONSTIPATION Budesonide (Pulmicort) 0.25 mg INHALATION BID.RESPIRATORY [facility] Last Admin: 12/30/19 07:38 Dose: 0.25 mg Documented by: Calcitriol (Rocaltrol) 0.25 mcg PO DAILY [facility] Last Admin: 12/29/19 08:17 Dose: 0.25 mcg Documented by: Calcium Carbonate (Oyster Shell 600mg-Vit D 400unit) 1 each PO DAILY [facility] Last Admin: 12/29/19 08:19 Dose: 1 each Documented by: Dexamethasone (Decadron) 6 mg IVP Q24H [facility] Last Admin: 12/29/19 12:17 Dose: 6 mg Documented by: Diphenhydramine HCl (Benadryl) 25 mg PO BEDTIME PRN PRN Reason: Sleep Hydromorphone HCl (Dilaudid Tab) 2 mg PO Q6H PRN PRN Reason: SEVERE PAIN remdesivir (EUA) 100 mg/ (Sodium Chloride) 100 mls @ 100 mls/hr IV Q24H [facility] Stop: 12/31/19 13:59 Last Infusion: 12/29/19 15:20 Dose: Infused Documented by: Azithromycin 500 mg/ Sodium (Chloride) 250 mls @ 250 mls/hr IV Q24H [facility]; Protocol Last Admin: 12/29/19 16:00 Dose: 250 mls/hr Documented by: Heparin Sodium/Sodium Chloride (Heparin Drip) 25,000 unit in 500 mls @ 29.03 mls/hr IV .[id number] SONAM Last Admin: 12/29/19 22:37 Dose: Not Given Documented by: Propofol (Diprivan) 1,000 mg in 100 mls @ 0 mls/hr IV .Q0M SONAM; Protocol Last Titration: 12/27/19 22:30 Dose: 0 mcg/kg/min, 0 mls/hr Documented by: Dexmedetomidine HCl 400 mcg/ (Sodium Chloride) 104 mls @ 0 mls/hr IV .Q0M SONAM; Protocol Last Admin: 12/30/19 05:50 Dose: 0.6 mcg/kg/hr, 14.2 mls/hr Documented by: Piperacillin Sod/Tazobactam (Sod 3.375 gm/ Sodium Chloride) 50 mls @ 12.5 mls/hr IV Q8H [facility]ONAM; Protocol Last Admin: 12/30/19 03:35 Dose: 12.5 mls/hr Documented by: Vancomycin HCl 1,500 mg/ (Sodium Chloride) 250 mls @ 166.667 mls/hr IV Q24H [facility] Last Admin: 12/29/19 21:59 Dose: 166 mls/hr Documented by: Fentanyl 1,000 mcg/ Sodium (Chloride) 100 mls @ 0 mls/hr IV .Q0M [facility]ONAM; Protocol Last Admin: 12/30/19 05:50 Dose: 75 mcg/hr, 7.5 mls/hr Documented by: Midazolam HCl 100 mg/ Sodium (Chloride) 100 mls @ 0 mls/hr IV .Q0M [facility]ONAM; Protocol Last Admin: 12/29/19 15:17 Dose: 2 mg/hr, 2 mls/hr Documented by: Norepinephrine Bitartrate 4 mg (/ Dextrose) 254 mls @ 0 mls/hr IV .Q0M SONAM; Protocol Last Titration: 12/28/19 13:00 Dose: 0 mcg/min, 0 mls/hr Documented by: Morphine Sulfate (Morphine) 2 mg IVP Q4H PRN PRN Reason: SEVERE PAIN Naloxone HCl (Narcan) 0.1 mg IVP Q2M PRN PRN Reason: OPIATERV Ondansetron HCl (Zofran) 4 mg IVP Q8H PRN PRN Reason: vomiting, or N/V if npo Pantoprazole Sodium (Protonix) 40 mg IVP Q24H [facility] Last Admin: 12/29/19 14:18 Dose: 40 mg Documented by: Sodium Bicarbonate (Sodium Bicarbonate) 1,300 mg PO TID [facility] Last Admin: 12/29/19 22:36 Dose: 1,300 mg Documented by: Vitals/I&O/Wt Last Vital Signs Temp 97.8 F 12/30/19 03:57 Pulse 66 12/30/19 07:29 Resp 15 12/30/19 07:29 BP 142/73 12/30/19 03:00 Pulse Ox 94 12/30/19 07:29 12/29/19 12/30/19 12/30/19 22:59 06:59 14:59 Intake Total 290.792 / 986.792 236.042 / 1222.834 Output Total 675 / 675 400 / 1075 Balance -384.208 / 311.792 -163.958 / 147.834 Weight last 48 hrs Weight 86.591 kg Weight 89.811 kg Weight 87.997 kg Physical Exam Narrative: EXAM NARRATIVE: intubated, sedated vent 50%, TV 500, peep 12 heent- nc/at, eomi neck no jvp lung b/l ronchi heart reg abd soft, nt ext no edema neuro- sedated Urinary Catheter Management^: Muniz: Cath Placed During This Visit: yes Reason for Continuing Indwelling Catheter: Accurate Measurement of Urinary Output in Critically Ill Patients Urinary Catheter Date of Insertion: 12/27/19 Urinary Catheter Time of Insertion: 17:59 Data : 12/30/19 03:45 12/30/19 03:45 Micro: Microbiology 12/27/19 14:20 Gram Stain - Final Sputum - Expectorated Sputum Sputum Culture - Final A&P Additional A&P Information 1. Acute kidney injury, renal function improved 2. VDRF, COVID, pnuemonia- check vanco trough- please keep under 19 3. Lactic acidosis, pH normal (respiratory alk), on oral sodium bicarbonate- improving- hold saodium bicarb. repeat abg pending 4. Chronic kidney disease stage 3 5. CHF- EF 35%, VDRF- would start lasix 6. monitor uop, chemistries 7. monitor hgb Attestations Medical Necessity Statement*: raul improved, ckd stage 3, VDRF, CHF- per hospitalist Time Spent in Patient Care: 16 - 35 minutes Coding Level of Care Code Acute Innersole Maker for Curly Franz
[2019-12-30] MEDS: calcitriol 0.25 mcg Capsule PO (09:41)
[2019-12-30] MEDS: dexamethasone 4 mg/mL INJ 6 MG IVP (09:41)
[2019-12-30] MEDS: aspirin 81 mg EC Tablet PO (09:41)
[2019-12-30] MEDS: allopurinol 300 mg Tablet PO (09:43)
[2019-12-30] MEDS: calcium carb-vit d 600mg/400unit 1 Tablet 1 EACH PO (09:43)
[2019-12-30] MEDS: atorvastatin 40 mg Tablet 20 MG PO (09:44)
[2019-12-30 09:53] LABS: ABG PCO2 48.7 mmHg (35-45); ABG PH Result 7.31 (7.35-7.45); Arterial Blood Gas Hematocrit 40.2 % (42-52); Base Excess ABG -2.3 mmol/L (-2.0-2.0); Blood Gas Sample Site Radial, left; Blood Gas Sample Type Arterial; HCO3 ABG 24.4 mmol/L (22-26); Oxygen Device VENT; PO2 ABG 87.3 mmHg (80.0-100.0)
--- NOTE | 2019-12-30 12:08 | P.PN_ITS ---
Subjective Subjective: Interval history: Remains on ventilator support, ABG this morning reflecting good oxygenation, mild hypercapnia, on FiO2 of 50%, had urine output of 400 mL overnight. Continued improvement in renal function and downtrending inflammatory markers though with noted increase in BNP. Improvement on chest x- ray this morning. On day 4 of remdesivir. Will start on low-dose Lasix by nephrology. Decreased sedation. Medications: Reviewed: Yes Medication Review Details: Active Medications Generic Name Dose Route Start Last Admin Trade Name Freq PRN Reason Stop Dose Admin Acetaminophen 650 mg 12/27/19 14:38 Tylenol PO Q6H PRN Mild/Mod Pain Or Temp >/= 101 Albuterol/Ipratrop ium 3 ml 12/28/19 00:04 12/30/19 07:38 Duoneb INHALATION 3 ml Q4H PRN Administration SHORTNESS OF GAYLA TH Allopurinol 300 mg 12/28/19 09:00 12/30/19 09:43 Zyloprim PO 300 mg DAILY SONAM Administration Aspirin 81 mg 12/28/19 09:00 12/30/19 09:41 Aspirin Ec PO 81 mg DAILY SONAM Administration Atorvastatin Calci um 20 mg 12/28/19 09:00 12/30/19 09:44 Lipitor PO 20 mg DAILY SONAM Administration Bisacodyl 10 mg 12/27/19 14:38 Dulcolax PO DAILY PRN CONSTIPATION Budesonide 0.25 mg 12/28/19 08:00 12/30/19 07:38 Pulmicort INHALATION 0.25 mg BID.RESPIRATORY [facility] Administration Calcitriol 0.25 mcg 12/28/19 09:00 12/30/19 09:41 Rocaltrol PO 0.25 mcg DAILY SONAM Administration Calcium Carbonate 1 each 12/28/19 09:00 12/30/19 09:43 Oyster Shell 600 mg-Vit D 400unit PO 1 each DAILY SONAM Administration Dexamethasone 6 mg 12/28/19 12:00 12/30/19 09:41 Decadron IVP 6 mg Q24H SONAM Administration Diphenhydramine HC l 25 mg 12/27/19 16:47 Benadryl PO BEDTIME PRN Sleep Hydromorphone HCl 2 mg 12/27/19 14:38 Dilaudid Tab PO Q6H PRN SEVERE PAIN remdesivir (EUA) 1 00 mg/ 100 mls @ 100 mls /hr 12/28/19 13:00 12/29/19 15:20 Sodium Chloride IV 12/31/19 13:59 Infused Q24H [facility]ONAM Infusion Azithromycin 500 m g/ Sodium 250 mls @ 250 mls /hr 12/27/19 16:30 12/30/19 09:45 Chloride IV Infused Q24H [facility] Infusion Protocol Heparin Sodium/Sod ium Chloride 25,000 unit in 50 0 mls @ 29.03 mls/ hr 12/27/19 15:00 12/29/19 22:37 Heparin Drip IV Not Given .[id number] SONAM 16 UNIT/KG/HR Propofol 1,000 mg in 100 m ls @ 0 mls/hr 12/27/19 17:30 12/27/19 22:30 Diprivan IV 0 mcg/kg/min .Q0M SONAM 0 mls/hr Titration Protocol Per Protocol Dexmedetomidine HC l 400 mcg/ 104 mls @ 0 mls/h r 12/27/19 18:00 12/30/19 10:44 Sodium Chloride IV 0 mcg/kg/hr .Q0M SONAM 0 mls/hr Titration Protocol Per Protocol Piperacillin Sod/T azobactam 50 mls @ 12.5 mls /hr 12/27/19 19:00 12/30/19 09:49 Sod 3.375 gm/ So dium Chloride IV 12.5 mls/hr Q8H SONAM Administration Protocol Vancomycin HCl 1,5 00 mg/ 250 mls @ 166.667 mls/hr 12/27/19 20:00 12/29/19 21:59 Sodium Chloride IV 166 mls/hr Q24H SONAM Administration Fentanyl 1,000 mcg / Sodium 100 mls @ 0 mls/h r 12/27/19 20:15 12/30/19 09:48 Chloride IV 50 mcg/hr .Q0M SONAM 5 mls/hr Titration Protocol Per Protocol Midazolam HCl 100 mg/ Sodium 100 mls @ 0 mls/h r 12/27/19 20:15 12/30/19 10:44 Chloride IV 1 mg/hr .Q0M SONAM 1 mls/hr Titration Protocol Per Protocol Norepinephrine Bit artrate 4 mg 254 mls @ 0 mls/h r 12/27/19 23:00 12/28/19 13:00 / Dextrose IV 0 mcg/min .Q0M SONAM 0 mls/hr Titration Protocol Per Protocol Morphine Sulfate 2 mg 12/27/19 14:38 Morphine IVP Q4H PRN SEVERE PAIN Naloxone HCl 0.1 mg 12/27/19 14:38 Narcan IVP Q2M PRN OPIATERV Ondansetron HCl 4 mg 12/27/19 14:38 Zofran IVP Q8H PRN vomiting, or N/V if npo Pantoprazole Sodiu m 40 mg 12/27/19 16:00 12/29/19 14:18 Protonix IVP 40 mg Q24H [facility]ONAM Administration leflunomide [From Arava] Allergy (Intermediate, Verified 12/27/19 13:45) rash Vitals/I&O/Wt Last Vital Signs Temp 97.8 F 12/30/19 03:57 Pulse 66 12/30/19 07:29 Resp 14 12/30/19 10:11 BP 142/73 12/30/19 03:00 Pulse Ox 94 12/30/19 07:29 12/29/19 12/30/19 12/30/19 22:59 06:59 14:59 Intake Total 290.792 / 986.792 236.042 / 1222.834 427.747 / 427.747 Output Total 675 / 675 400 / 1075 Balance -384.208 / 311.792 -163.958 / 147.834 427.747 / 427.747 Weight last 48 hrs Weight 86.591 kg Weight 89.811 kg Weight 87.997 kg Physical Exam Const: COMMON NORMALS: no acute distress GENERAL APPEARANCE: patient mechanically ventilated ORIENTATION/CONSCIOUSNESS: Yes awake OTHER: - sedated HENMT: COMMON NORMALS: normocephalic and atraumatic HEAD & SCALP: normocephalic and atraumatic OTHER: -orally intubated; ETT- 25 cm at lip Eye: COMMON NORMALS: Equal, round and reactive pupils present, EOMs intact bilaterally and conjunctivae normal CONJUNCTIVA: Yes conjunctivae normal PUPIL: Yes Equal, round and reactive pupils present Neck/C-Spine: COMMON NORMALS: full ROM GENERAL: Yes normal visual inspection and Yes trachea midline Resp: COMMON NORMALS: normal respiratory effort, No retractions and No use of accessory muscles EFFORT & INSPECTION: Yes symmetric chest movement and Yes tachypneic AUSCULTATION: rhonchi and diminished lung sounds OTHER: -on vent support (500/50%/12) -thick grayish sputum in tubing Cardio: COMMON NORMALS: regular rate, regular rhythm, S1 normal heart sound present, S2 normal heart sound present and No murmurs present (Cardio) RATE: regular rate RHYTHM: regular rhythm HEART SOUNDS: S1 normal heart sound present and S2 normal heart sound present GI: COMMON NORMALS: Normal to inspection, nondistended, normoactive bowel sounds present, Soft to palpation and non-tender PALPATION: Yes Soft to palpation : BLADDER/KIDNEY EXAM: Yes catheter in place Extremity: COMMON NORMALS: normal to inspection, full ROM and no clubbing, cyanosis or edema; negative for no pedal edema Neuro: COMMON NORMALS: moves all extremities, no focal motor deficits, no sensory deficits noted and gait normal OTHER: -sedated Psych: COMMON NORMALS: mental status grossly normal, Normal thought process present, cooperative, normal affect and speech normal SPEECH: Yes normal speech THOUGHT PROCESS: Normal thought process present OTHER: -sedated; on fentanyl, versed, -[id number]- Skin: COMMON NORMALS: no rashes or lesions noted, no jaundice, no petechiae and no mottling GENERAL SKIN EXAM: no rashes or lesions noted Urinary Catheter Management^: Muniz: Cath Placed During This Visit: yes Reason for Continuing Indwelling Catheter: Accurate Measurement of Urinary Output in Critically Ill Patients Urinary Catheter Date of Insertion: 12/27/19 Urinary Catheter Time of Insertion: 17:59 Data : 12/30/19 03:45 12/30/19 03:45 Micro: Microbiology 12/27/19 14:20 Gram Stain - Final Sputum - Expectorated Sputum Sputum Culture - Final A&P Assessment and plan (1) Respiratory failure with hypoxia: -Acute hypoxic respiratory failure requiring intubation in the ER on ad mission; remains on ventilator support with gradually decreasing oxygen requirement -Weaning trial when appropriate; start on tube feeds today -Continued close monitoring of respiratory status -Continue empiric antibiotic coverage -On day 4 of remdesivir -Continue IV steroids, supportive care -Continue to trend inflammatory markers -Chest x-ray today improved -sputum cx; mixed khloe, gram stain polymicrobial -start on low dose diuresis Status: Acute Qualifiers: Chronicity: acute Qualified Code(s): J96.01 - Acute respiratory failure with hypoxia (2) Pneumonia due to COVID-19 virus: -Imaging including CT of the chest consistent with viral pneumonia secondary to COVID-19 infection -Treatment as noted above -Not oxygen dependent at baseline, home oxygen evaluation prior to discharge if appropriate Status: Acute (3) CKD (chronic kidney disease): -JULIA on CKD stage 2 -Baseline creatinine appears to be around 1 -Noted improvement in renal function, continue to monitor -Renally dose meds, avoid nephrotoxins -Nephrology consultation appreciated Status: Acute Qualifiers: Chronic kidney disease stage: stage 2 (mild) Qualified Code(s): N18.2 - Chronic kidney disease, stage 2 (mild) (4) Seropositive rheumatoid arthritis of multiple joints: -Follows up with Dr. Macias -Is on chronic steroids and Xeljanz; has had difficulty tolerating alternative treatment Status: Chronic Additional A&P Information -History of combined systolic and diastolic CHF; s/p pacemaker, defibrillator; f/u with cardiology. Echo (2018): EF=31%, G1DD, global LV hypokinesis, mild MR, trace AR, mild TR, trace CO -hx of gout -hx of iron deficiency anemia; H/H stable -prior hx of Erlichiosis with sepsis and multi-organ failure -NPO due to vent support; will start on tube feeds today -GI ppx with PPI -DVT ppx not needed as on heparin drip -Dispo: home -Code status: FULL code -updated Lakeshia Joseph ([phone]) on patient's clinical status Attestations Medical Necessity Statement*: Patient requires hospitalization for continued treatment of COVID-19 pneumonia, remains on ventilator support and sedation, antiviral treatment and broad-spectrum IV antibiotics. Time Spent in Patient Care: Greater than 35 minutes (>than 50% of time spent in counselling and/or direct pt care on unit) . Coding Level of Care Code Acute Material Chaser for Chg Fwd Diagnoses Respiratory failure with hypoxia J96.01 Chronicity: acute Pneumonia due to COVID-19 virus U07.1; J12.89 CKD (chronic kidney disease) N18.2 Chronic kidney disease stage: stage 2 (mild) Seropositive rheumatoid arthritis of multiple joints M05.79
[2019-12-30] MEDS: heparin drip 25,000 UNIT/500 ML PREMIX 15 UNIT IV ×2 (12:36→21:37)
[2019-12-30] MEDS: FUROsemide 10 mg/mL SDV 4mL 20 MG IVP (12:40)
--- NOTE | 2019-12-30 14:57 | PC.NURSE ---
COOL RAG PLACED ON PATIENTS SWOLLEN EYELIDS LEFT MORE SWOLLEN THAN RIGHT. HOB ELEVATED TO 40% OFTEN TOLERATED. SWELLING IMPROVED THROUGHOUT DAY. TF JEVITY 1.2 STARTED AT 1230 AT A RATE OF 10CC/HR. SEDATION GRADUALLY REDUCED AND HE AWAKENED BOO AROUND 1400 WITH VERSED AT 1, FENTANYL AT 25, AND PRECEDEX AT .2. HE PULLED OFF HIS LEADS AND MOVED HIS ARMS TO COMMAND. OPENED EYES TO COMMAND .
[2019-12-30] MEDS: pantoprazole 40 mg SDV IVP (15:21)
[2019-12-30] MEDS: azithromycin 500 MG in sodium chloride 0.9% 250 ML 250 MG IV (15:22)
--- NOTE | 2019-12-30 16:38 | PC.SOCIAL ---
Pg 2 IMM Explained to pt's family, via phone Pg 2 IMM. No questions voiced. Signed, dated, & timed a copy for chart.
[2019-12-30] MEDS: morphine 4 mg/mL SDV 1 mL 2 MG IVP (17:45)
[2019-12-30 19:28] LABS: Vancomycin Trough 17.9 ug/mL (10-15)
[2019-12-30] MEDS: dexmedetomidine 400 MCG in sodium chloride 0.9% (100 ml) 100 ML 11.8 MCG IV (21:37)
--- NOTE | 2019-12-30 23:46 | PC.PHAR ---
Vancomycin trough is 17.9. Continue 1500mg IVPB every 24 hours.
[2019-12-31] VITALS (34 sets, daily range): BP systolic 133–166; BP diastolic 71–84; PULSE 60–90; RESP 13–18; TEMP 36.8–37.6; O2SAT 90–95
[2019-12-31] MEDS: FUROsemide 10 mg/mL SDV 4mL 20 MG IVP (01:48)
[2019-12-31] MEDS: piperacillin-tazobactam 3.375 GM in sodium chloride 0.9% (plus) 50 ML IV ×3 (03:24→18:00)
[2019-12-31 04:39] LABS: ABG PCO2 37.4 mmHg (35-45); ABG PH Result 7.42 (7.35-7.45); Base Excess ABG 0.3 mmol/L (-2.0-2.0); Blood Gas Allen Test Pos; Blood Gas Sample Type Arterial; HCO3 ABG 24.5 mmol/L (22-26); PO2 ABG 58.6 mmHg (80.0-100.0)
[2019-12-31 04:40] LABS: Blood Gas Sample Site Radial, right; Oxygen Device VENT
--- NOTE | 2019-12-31 06:00 | XR_ITS ---
WS: [id number] Exam: XR chest 1V portable [id number] Date/Time of Exam: 12/31/2019 6:41 AM Reason For Exam: on vent support, COVID-19 positive Findings: Comparison 12/30/2019. Bilateral pulmonary infiltrates show no significant change. Heart size remains within normal limits. The mediastinum is not widened. ET tube ends about 6 cm above the warren unchanged in position. The l ungs are well aerated. An enteric tube extends below the diaphragm. A permanent cardiac pacer superim poses the left chest. XR/XR chest 1V portable [id number] IMPRESSION: 1. Diffuse bilateral pulmonary infiltrates showing no significant change.
[2019-12-31 06:38] LABS: Hematocrit 39.2 % (42.0-52.0); Hemoglobin 12.2 g/dL (11.7-16.6); Lymphocytes # 0.2 10^3/uL (0.8-4.8); Lymphocytes % 2.8 %; Mean Corpuscular HGB Conc 31.1 g/dL (30.0-36.0); Mean Corpuscular Hemoglobin 31.4 pg (28.0-34.0); Mean Platelet Volume 10.5 fL (7.4-10.4); Monocytes # 0.4 10^3/uL (0.2-0.9); Monocytes % 4.8 %; Neutrophils # 7.55 10^3/uL (1.8-7.7); Neutrophils % 91.3 %; Nucleated Red Blood Cells % 0 %; Platelet Count 286 10^3/cmm (130-400); Red Blood Count 3.88 10^6/uL (4.1-5.3); Red Cell Distribution Width 14.4 % (12.1-15.1); White Blood Count 8.3 10^3/uL (4.0-10.0)
[2019-12-31 06:46] LABS: Fibrinogen 684 mg/dL (174-498)
[2019-12-31 06:53] LABS: D Dimer 1.29 ug/mIFEU (0-0.59)
[2019-12-31 06:55] LABS: C Reactive Protein 68.7 mg/L (0.0-4.9)
[2019-12-31 07:03] LABS: Alanine Aminotransferase 26 U/L (0-41); Albumin Level 3.1 g/dL (3.5-5.2); Alkaline Phosphatase 57 IU/L (40-130); Anion Gap 16.4 (5-19); Aspartate Amino Transferase 37 U/L (0-40); Blood Urea Nitrogen 45 mg/dL (8-23); Calcium 7.4 mg/dL (8.5-10.5); Carbon Dioxide 23 mmol/L (22-29); Chloride 112 mmol/L (98-107); Globulin 2.4 g/dL (1.3-4.6); Glomerular Filtration Rate 35.2 mL/min (90-130); Glucose 173 mg/dL (65-115); Magnesium 2.9 mg/dL (1.7-2.3); NT Pro B Type Natriuretic Pept 7086 pg/mL (0-125); Osmolality Calculated 320 mOsm/kg (285-295); Potassium 4.4 mmol/L (3.5-5.1); Sodium 147 mmol/L (136-145); Total Bilirubin 0.4 mg/dL (0.15-1.2); Total Protein 5.5 g/dL (6.6-8.7)
[2019-12-31 07:12] LABS: Vancomycin Trough 31.3 ug/mL (10-15)
[2019-12-31 07:17] LABS: Ferritin 3558 ng/mL (30-400)
[2019-12-31] MEDS: dexmedetomidine 400 MCG in sodium chloride 0.9% (100 ml) 100 ML 11.8 MCG IV (07:32)
[2019-12-31 07:59] LABS: Partial Thromboplastin Time 42.4 SECONDS (23.9-36.7)
--- NOTE | 2019-12-31 08:12 | P.PN_ITS ---
Subjective Subjective: Interval history: intubated, unable to obtain Medications: Reviewed: Yes Medication Review Details: Current Medications Acetaminophen (Tylenol) 650 mg PO Q6H PRN PRN Reason: Mild/Mod Pain Or Temp >/= 101 Albuterol/Ipratropium (Duoneb) 3 ml INHALATION Q4H PRN PRN Reason: SHORTNESS OF BREATH Last Admin: 12/30/19 20:51 Dose: 3 ml Documented by: Allopurinol (Zyloprim) 300 mg PO DAILY [facility] Last Admin: 12/30/19 09:43 Dose: 300 mg Documented by: Aspirin (Aspirin Ec) 81 mg PO DAILY SONAM Last Admin: 12/30/19 09:41 Dose: 81 mg Documented by: Atorvastatin Calcium (Lipitor) 20 mg PO DAILY [facility] Last Admin: 12/30/19 09:44 Dose: 20 mg Documented by: Bisacodyl (Dulcolax) 10 mg PO DAILY PRN PRN Reason: CONSTIPATION Budesonide (Pulmicort) 0.25 mg INHALATION BID.RESPIRATORY [facility] Last Admin: 12/30/19 20:51 Dose: 0.25 mg Documented by: Calcitriol (Rocaltrol) 0.25 mcg PO DAILY SONAM Last Admin: 12/30/19 09:41 Dose: 0.25 mcg Documented by: Calcium Carbonate (Oyster Shell 600mg-Vit D 400unit) 1 each PO DAILY [facility] Last Admin: 12/30/19 09:43 Dose: 1 each Documented by: Dexamethasone (Decadron) 6 mg IVP Q24H SONAM Last Admin: 12/30/19 09:41 Dose: 6 mg Documented by: Diphenhydramine HCl (Benadryl) 25 mg PO BEDTIME PRN PRN Reason: Sleep Furosemide (Lasix) 20 mg IVP Q12H [facility] Last Admin: 12/31/19 01:48 Dose: 20 mg Documented by: Hydromorphone HCl (Dilaudid Tab) 2 mg PO Q6H PRN PRN Reason: SEVERE PAIN remdesivir (EUA) 100 mg/ (Sodium Chloride) 100 mls @ 100 mls/hr IV Q24H [facility] Stop: 12/31/19 13:59 Last Infusion: 12/30/19 15:17 Dose: Infused Documented by: Azithromycin 500 mg/ Sodium (Chloride) 250 mls @ 250 mls/hr IV Q24H [facility]; Protocol Last Infusion: 12/31/19 07:25 Dose: Infused Documented by: Heparin Sodium/Sodium Chloride (Heparin Drip) 25,000 unit in 500 mls @ 29.03 mls/hr IV .[id number] SONAM Last Admin: 12/30/19 21:37 Dose: 8.27 unit/kg/hr, 15 mls/hr Documented by: Propofol (Diprivan) 1,000 mg in 100 mls @ 0 mls/hr IV .Q0M SONAM; Protocol Last Titration: 12/27/19 22:30 Dose: 0 mcg/kg/min, 0 mls/hr Documented by: Dexmedetomidine HCl 400 mcg/ (Sodium Chloride) 104 mls @ 0 mls/hr IV .Q0M SONAM; Protocol Last Admin: 12/31/19 07:32 Dose: 0.5 mcg/kg/hr, 11.8 mls/hr Documented by: Piperacillin Sod/Tazobactam (Sod 3.375 gm/ Sodium Chloride) 50 mls @ 12.5 mls/hr IV Q8H [facility]; Protocol Last Infusion: 12/31/19 07:15 Dose: 0 mls/hr Documented by: Vancomycin HCl 1,500 mg/ (Sodium Chloride) 250 mls @ 166.667 mls/hr IV Q24H [facility] Last Infusion: 12/30/19 21:41 Dose: Infused Documented by: Fentanyl 1,000 mcg/ Sodium (Chloride) 100 mls @ 0 mls/hr IV .Q0M [facility]; Protocol Last Admin: 12/31/19 05:49 Dose: 50 mcg/hr, 5 mls/hr Documented by: Midazolam HCl 100 mg/ Sodium (Chloride) 100 mls @ 0 mls/hr IV .Q0M [facility]ONAM; Protocol Last Titration: 12/30/19 17:22 Dose: 2 mg/hr, 2 mls/hr Documented by: Norepinephrine Bitartrate 4 mg (/ Dextrose) 254 mls @ 0 mls/hr IV .Q0M [facility]ON[facility]; Protocol Last Titration: 12/28/19 13:00 Dose: 0 mcg/min, 0 mls/hr Documented by: Morphine Sulfate (Morphine) 2 mg IVP Q4H PRN PRN Reason: SEVERE PAIN Last Admin: 12/30/19 17:45 Dose: 2 mg Documented by: Naloxone HCl (Narcan) 0.1 mg IVP Q2M PRN PRN Reason: OPIATERV Ondansetron HCl (Zofran) 4 mg IVP Q8H PRN PRN Reason: vomiting, or N/V if npo Pantoprazole Sodium (Protonix) 40 mg IVP Q24H [facility] Last Admin: 12/30/19 15:21 Dose: 40 mg Documented by: Vitals/I&O/Wt Last Vital Signs Temp 98.9 F 12/31/19 01:00 Pulse 77 12/31/19 06:00 Resp 14 12/31/19 05:54 BP 161/80 12/31/19 06:00 Pulse Ox 95 12/31/19 06:00 12/30/19 12/31/19 12/31/19 22:59 06:59 14:59 Intake Total 682.536 / 1531.716 246.792 / 1778.508 298.125 / 298.125 Output Total 1350 / 1800 1075 / 2875 Balance -667.464 / -268.284 -828.208 / -1096.492 298.125 / 298.125 Weight last 48 hrs Weight 89.63 kg Weight 86.591 kg Weight 89.811 kg Physical Exam Narrative: EXAM NARRATIVE: intubated, sedated heent- nc/at, eomi neck no jvp lung improved air movement b/l heart reg abd soft, nt ext no edema neuro- sedated Urinary Catheter Management^: Muniz: Cath Placed During This Visit: yes Reason for Continuing Indwelling Catheter: Accurate Measurement of Urinary Output in Critically Ill Patients Urinary Catheter Date of Insertion: 12/27/19 Urinary Catheter Time of Insertion: 17:59 Data : 12/31/19 03:40 12/31/19 03:40 Micro: Microbiology 12/29/19 15:00 MRSA Culture - Final Nose A&P Additional A&P Information 1. Acute kidney injury, renal function improved- high BUN- d/c lasix. give gentle fluids 2. VDRF, COVID, pnuemonia- check vanco trough- please keep under 19 3. Lactic acidosis improved, pH normal 4. Chronic kidney disease stage 2- 3 5. CHF- EF 35%, VDRF- per cardiology 6. hypernatremia- likely from lasix- d/c and give gentle hypotonic ivf 7. monitor uop, chemistries Attestations Medical Necessity Statement*: vdrf, covid-19- sars-2 pna, raul, hypernatremia Time Spent in Patient Care: 16 - 35 minutes Coding Level of Care Code Acute Subassembler for Curly Franz
[2019-12-31] MEDS: ipratropium-albuterol 3 mL Neb INHALATION ×2 (08:25→20:52)
[2019-12-31] MEDS: budesonide 0.5 mg/2 mL Neb 0.25 MG INHALATION ×2 (08:25→20:52)
[2019-12-31] MEDS: calcium carbonate 500 mg Chew Tablet PO ×2 (08:34→17:15)
[2019-12-31] MEDS: calcium carb-vit d 600mg/400unit 1 Tablet 1 EACH PO (08:35)
[2019-12-31] MEDS: aspirin 81 mg EC Tablet PO (08:35)
[2019-12-31] MEDS: allopurinol 300 mg Tablet PO (08:35)
[2019-12-31] MEDS: calcitriol 0.25 mcg Capsule PO (08:35)
[2019-12-31] MEDS: atorvastatin 40 mg Tablet 20 MG PO (08:35)
[2019-12-31] MEDS: sodium chloride 0.45% 1,000 ML 75 ML IV ×2 (08:40→21:56)
--- NOTE | 2019-12-31 09:10 | P.PN_ITS ---
Subjective Subjective: Interval history: Remains on vent support and sedation, FiO2 of 50%, had 1025 mL urine output overnight, noted hyponatremia, slight worsening in renal function, Lasix discontinued. Started on gentle IV fluid hydration. Afebrile, noted hypertension. On day 5 of remdesivir. Remains on heparin drip. Will start weaning trial today. AM CXR unchanged. Medications: Reviewed: Yes Medication Review Details: Active Medications Generic Name Dose Route Start Last Admin Trade Name Freq PRN Reason Stop Dose Admin Acetaminophen 650 mg 12/27/19 14:38 Tylenol PO Q6H PRN Mild/Mod Pain Or Temp >/= 101 Albuterol/Ipratrop ium 3 ml 12/28/19 00:04 12/31/19 08:25 Duoneb INHALATION 3 ml Q4H PRN Administration SHORTNESS OF GAYLA TH Allopurinol 300 mg 12/28/19 09:00 12/31/19 08:35 Zyloprim PO 300 mg DAILY SONAM Administration Aspirin 81 mg 12/28/19 09:00 12/31/19 08:35 Aspirin Ec PO 81 mg DAILY SONAM Administration Atorvastatin Calci um 20 mg 12/28/19 09:00 12/31/19 08:35 Lipitor PO 20 mg DAILY SONAM Administration Bisacodyl 10 mg 12/27/19 14:38 Dulcolax PO DAILY PRN CONSTIPATION Budesonide 0.25 mg 12/28/19 08:00 12/31/19 08:25 Pulmicort INHALATION 0.25 mg BID.RESPIRATORY [facility] Administration Calcitriol 0.25 mcg 12/28/19 09:00 12/31/19 08:35 Rocaltrol PO 0.25 mcg DAILY SONAM Administration Calcium Carbonate 1 each 12/28/19 09:00 12/31/19 08:35 Oyster Shell 600 mg-Vit D 400unit PO 1 each DAILY SONAM Administration Calcium Carbonate 500 mg 12/31/19 09:00 12/31/19 08:34 Tums PO 500 mg BID SONAM Administration Dexamethasone 6 mg 12/28/19 12:00 12/30/19 09:41 Decadron IVP 6 mg Q24H SONAM Administration Diphenhydramine HC l 25 mg 12/27/19 16:47 Benadryl PO BEDTIME PRN Sleep Hydromorphone HCl 2 mg 12/27/19 14:38 Dilaudid Tab PO Q6H PRN SEVERE PAIN remdesivir (EUA) 1 00 mg/ 100 mls @ 100 mls /hr 12/28/19 13:00 12/30/19 15:17 Sodium Chloride IV 12/31/19 13:59 Infused Q24H SONAM Infusion Azithromycin 500 m g/ Sodium 250 mls @ 250 mls /hr 12/27/19 16:30 12/31/19 07:25 Chloride IV Infused Q24H SONAM Infusion Protocol Heparin Sodium/Sod ium Chloride 25,000 unit in 50 0 mls @ 29.03 mls/ hr 12/27/19 15:00 12/31/19 09:01 Heparin Drip IV 10.47 unit/kg/hr .[id number] SONAM 19 mls/hr Infusion 16 UNIT/KG/HR Propofol 1,000 mg in 100 m ls @ 0 mls/hr 12/27/19 17:30 12/27/19 22:30 Diprivan IV 0 mcg/kg/min .Q0M SONAM 0 mls/hr Titration Protocol Per Protocol Dexmedetomidine HC l 400 mcg/ 104 mls @ 0 mls/h r 12/27/19 18:00 12/31/19 07:32 Sodium Chloride IV 0.5 mcg/kg/hr .Q0M SONAM 11.8 mls/hr Administration Protocol Per Protocol Piperacillin Sod/T azobactam 50 mls @ 12.5 mls /hr 12/27/19 19:00 12/31/19 08:36 Sod 3.375 gm/ So dium Chloride IV Infused Q8H [facility] Infusion Protocol Fentanyl 1,000 mcg / Sodium 100 mls @ 0 mls/h r 12/27/19 20:15 12/31/19 05:49 Chloride IV 01/04/20 23:59 50 mcg/hr .Q0M SONAM 5 mls/hr Administration Protocol Per Protocol Midazolam HCl 100 mg/ Sodium 100 mls @ 0 mls/h r 12/27/19 20:15 12/30/19 17:22 Chloride IV 2 mg/hr .Q0M SONAM 2 mls/hr Titration Protocol Per Protocol Norepinephrine Bit artrate 4 mg 254 mls @ 0 mls/h r 12/27/19 23:00 12/28/19 13:00 / Dextrose IV 0 mcg/min .Q0M SONAM 0 mls/hr Titration Protocol Per Protocol Sodium Chloride 1,000 mls @ 75 ml s/hr 12/31/19 08:30 12/31/19 08:40 Sodium Chloride 0.45% IV 75 mls/hr .[id number] SONAM Administration Vancomycin HCl 1,2 50 mg/ 250 mls @ 166.667 mls/hr 12/31/19 20:00 Sodium Chloride IV Q24H SONAM Morphine Sulfate 2 mg 12/27/19 14:38 12/30/19 17:45 Morphine IVP 2 mg Q4H PRN Administration SEVERE PAIN Naloxone HCl 0.1 mg 12/27/19 14:38 Narcan IVP Q2M PRN OPIATERV Ondansetron HCl 4 mg 12/27/19 14:38 Zofran IVP Q8H PRN vomiting, or N/V if npo Pantoprazole Sodiu m 40 mg 12/27/19 16:00 12/30/19 15:21 Protonix IVP 40 mg Q24H SONAM Administration leflunomide [From Arava] Allergy (Intermediate, Verified 12/27/19 13:45) rash Vitals/I&O/Wt Last Vital Signs Temp 98.9 F 12/31/19 01:00 Pulse 74 12/31/19 08:13 Resp 16 12/31/19 08:25 BP 161/80 12/31/19 06:00 Pulse Ox 95 12/31/19 08:13 12/30/19 12/31/19 12/31/19 22:59 06:59 14:59 Intake Total 682.536 / 1531.716 246.792 / 1778.508 471.000 / 471.000 Output Total 1350 / 1800 1075 / 2875 Balance -667.464 / -268.284 -828.208 / -1096.492 471.000 / 471.000 Weight last 48 hrs Weight 89.63 kg Weight 86.591 kg Weight 89.811 kg Physical Exam Const: COMMON NORMALS: no acute distress GENERAL APPEARANCE: patient mechanically ventilated ORIENTATION/CONSCIOUSNESS: Yes awake OTHER: - sedated HENMT: COMMON NORMALS: normocephalic and atraumatic HEAD & SCALP: normocephalic and atraumatic OTHER: -orally intubated; ETT- 25 cm at lip Eye: COMMON NORMALS: Equal, round and reactive pupils present, EOMs intact bilaterally and conjunctivae normal CONJUNCTIVA: Yes conjunctivae normal PUPIL: Yes Equal, round and reactive pupils present Neck/C-Spine: COMMON NORMALS: full ROM GENERAL: Yes normal visual inspection and Yes trachea midline Resp: COMMON NORMALS: normal respiratory effort, No retractions and No use of accessory muscles EFFORT & INSPECTION: Yes symmetric chest movement and Yes tachypneic AUSCULTATION: rhonchi and diminished lung sounds OTHER: -on vent support (500/50%/12) -thick grayish sputum in tubing Cardio: COMMON NORMALS: regular rate, regular rhythm, S1 normal heart sound present, S2 normal heart sound present and No murmurs present (Cardio) RATE: regular rate RHYTHM: regular rhythm HEART SOUNDS: S1 normal heart sound present and S2 normal heart sound present GI: COMMON NORMALS: Normal to inspection, nondistended, normoactive bowel sounds present, Soft to palpation and non-tender PALPATION: Yes Soft to palpation : BLADDER/KIDNEY EXAM: Yes catheter in place Extremity: COMMON NORMALS: normal to inspection, full ROM and no clubbing, cyanosis or edema; negative for no pedal edema Neuro: COMMON NORMALS: moves all extremities, no focal motor deficits, no sensory deficits noted and gait normal OTHER: -sedated Psych: COMMON NORMALS: mental status grossly normal, Normal thought process present, cooperative, normal affect and speech normal SPEECH: Yes normal speech THOUGHT PROCESS: Normal thought process present OTHER: -sedated; on fentanyl, versed, precedex Skin: COMMON NORMALS: no rashes or lesions noted, no jaundice, no petechiae and no mottling GENERAL SKIN EXAM: no rashes or lesions noted Urinary Catheter Management^: Muniz: Cath Placed During This Visit: yes Reason for Continuing Indwelling Catheter: Accurate Measurement of Urinary Output in Critically Ill Patients Urinary Catheter Date of Insertion: 12/27/19 Urinary Catheter Time of Insertion: 17:59 Data : 12/31/19 03:40 12/31/19 03:40 Micro: Microbiology 12/29/19 15:00 MRSA Culture - Final Nose A&P Assessment and plan (1) Respiratory failure with hypoxia: -Acute hypoxic respiratory failure requiring intubation in the ER on admission; remains on ventilator support with gradually decreasing oxygen requirement -Weaning trial today; on tube feeds -Continued close monitoring of respiratory status -Continue empiric antibiotic coverage -On day 5 of remdesivir -Continue IV steroids, supportive care -Continue to trend inflammatory markers -Chest x-ray today improved -sputum cx; mixed khloe, gram stain polymicrobial -off low dose diuresis; on gentle IVF hydration Status: Acute Qualifiers: Chronicity: acute Qualified Code(s): J96.01 - Acute respiratory failure with hypoxia (2) Pneumonia due to COVID-19 virus: -Imaging including CT of the chest consistent with viral pneumonia secondary to COVID-19 infection -Treatment as noted above -Not oxygen dependent at baseline, home oxygen evaluation prior to discharge if appropriate Status: Acute (3) CKD (chronic kidney disease): -JULIA on CKD stage 2 -Baseline creatinine appears to be around 1 -Noted slight worsening in renal function likely due to diuresis, continue to monitor -Renally dose meds, avoid nephrotoxins -Nephrology consultation appreciated -gentle IVF hydration Status: Acute Qualifiers: Chronic kidney disease stage: stage 2 (mild) Qualified Code(s): N18.2 - Chronic kidney disease, stage 2 (mild) (4) Seropositive rheumatoid arthritis of multiple joints: -Follows up with Dr. Macias -Is on chronic steroids and Xeljanz; has had difficulty tolerating alternative treatment Status: Chronic Additional A&P Information -History of combined systolic and diastolic CHF; s/p pacemaker, defibrillator; f/u with cardiology. Echo (2018): EF=31%, G1DD, global LV hypokinesis, mild MR, trace AR, mild TR, trace IN -hx of gout -hx of iron deficiency anemia; H/H stable -prior hx of Erlichiosis with sepsis and multi-organ failure -NPO due to vent support; on tube feeds -GI ppx with PPI -DVT ppx not needed as on heparin drip -Dispo: home -Code status: FULL code -updated Lakeshia Joseph ([phone]) on patient's clinical status Attestations Medical Necessity Statement*: Patient requires hospitalization for continued management of COVID-19 pneumonia, remains on vent support, broad spectrum IV antibiotics and antiviral treatment, as well as continued monitoring of renal function. Time Spent in Patient Care: Greater than 35 minutes (>than 50% of time spent in counselling and/or direct pt care on unit) . Coding Level of Care Code Acute Office Services Associate for Chg Fwd Exam Comprehensive Diagnoses Respiratory failure with hypoxia J96.01 Chronicity: acute Pneumonia due to COVID-19 virus U07.1; J12.89 CKD (chronic kidney disease) N18.2 Chronic kidney disease stage: stage 2 (mild) Seropositive rheumatoid arthritis of multiple joints M05.79
--- NOTE | 2019-12-31 11:24 | XR_ITS ---
WS: [id number] Exam: XR chest 1V [id number] Date/Time of Exam: 12/31/2019 11:24 AM Reason For Exam: new OG tube placement Comparison made with the previous exam performed on the same day at 0702 hours. Bilateral pulmonary infiltrates show no change. Heart size is stable. ET tube is in place ending abou t 5 cm above the warren unchanged in position. An enteric tube extends into the stomach but the tip i s not visible. Permanent cardiac pacer overlying the left chest. XR/XR chest 1V [id number] IMPRESSION: 1. Enteric tube extends into the stomach but the tip is not visible. 2. Bilateral pulmonary infiltrates unchanged. 3. ET tube unchanged in position.
[2019-12-31 11:38] LABS: Glucose Point of Care 198 mg/dL (70-110)
--- NOTE | 2019-12-31 11:54 | PC.NURSE ---
TURNED PATIENT AND NOTICED THE OG TUBE COILED IN THE MOUTH. STOPPED TF. GOT A NEW OG AND INSERTED IT. ORDERED STAT CHEST XRAY TO CONFIRM PLACEMENT.
[2019-12-31] MEDS: dexamethasone 4 mg/mL INJ 6 MG IVP (12:56)
[2019-12-31 14:07] LABS: Partial Thromboplastin Time 66.3 SECONDS (23.9-36.7)
[2019-12-31] MEDS: pantoprazole 40 mg SDV IVP (15:14)
[2019-12-31] MEDS: azithromycin 500 MG in sodium chloride 0.9% 250 ML 250 MG IV (15:31)
--- NOTE | 2019-12-31 15:45 | PC.NURSE ---
PATIENT'S PTT WAS DRAWN AND TURNED IN, BUT LAB DID NOT FINISH RUNNING THE PTT UNTIL 1529 WHEN I CALLED LAB.
[2019-12-31] MEDS: dexmedetomidine 400 MCG in sodium chloride 0.9% (100 ml) 100 ML 7.1 MCG IV (16:31)
[2019-12-31 19:39] LABS: Vancomycin Trough 13.8 ug/mL (10-15)
--- NOTE | 2019-12-31 20:23 | PC.NURSE ---
Pt suctioned with mechanical suctioning device, pt tolerated well, pt resting with eyes closed, Versed running at 2ml/hr, Fentanyl running at 5ml/hr, Precedex running at 6.8ml/hr, pt tolerating well on mechanical ventilation. Pt eyes cleaned and covered for comfort, restraints removed to access circulation, reapplied, oral care provided to patient. Will continue to monitor for changes.
--- NOTE | 2019-12-31 20:57 | PC.NURSE ---
Lab draw for PTT on right forearm, sent to lab
--- NOTE | 2019-12-31 22:16 | PC.NURSE ---
Sent PTT to lab at 2049, lab states it will take approx 30 minutes to complete, explained Heparin drip was to be adjusted from PTT. Called lab at 2199 spoke with Abiola, again explained the need for result, Abiola states will be delayed due to ER patients.
[2019-12-31 22:31] LABS: Partial Thromboplastin Time 61.3 SECONDS (23.9-36.7)
[2019-12-31] MEDS: heparin drip 25,000 UNIT/500 ML PREMIX 19 UNIT IV (23:25)
[2020-01-01] VITALS (39 sets, daily range): BP systolic 130–170; BP diastolic 66–82; PULSE 57–81; RESP 10–20; TEMP 36.3–37.3; O2SAT 88–99
[2020-01-01] MEDS: ipratropium-albuterol 3 mL Neb INHALATION ×4 (00:26→20:14)
[2020-01-01 03:11] LABS: Basophils % 0.1 %; Hematocrit 36.2 % (42.0-52.0); Hemoglobin 11.5 g/dL (11.7-16.6); Lymphocytes # 0.2 10^3/uL (0.8-4.8); Lymphocytes % 2.1 %; Mean Corpuscular HGB Conc 31.8 g/dL (30.0-36.0); Mean Corpuscular Hemoglobin 31.3 pg (28.0-34.0); Mean Corpuscular Volume 98.6 fL (80-94); Mean Platelet Volume 10.2 fL (7.4-10.4); Monocytes # 0.4 10^3/uL (0.2-0.9); Monocytes % 4.5 %; Neutrophils # 7.14 10^3/uL (1.8-7.7); Neutrophils % 91.9 %; Nucleated Red Blood Cells % 0 %; Platelet Count 246 10^3/cmm (130-400); Red Blood Count 3.67 10^6/uL (4.1-5.3); Red Cell Distribution Width 14.3 % (12.1-15.1); White Blood Count 7.8 10^3/uL (4.0-10.0)
[2020-01-01 03:25] LABS: Fibrinogen 641 mg/dL (174-498)
[2020-01-01 03:27] LABS: D Dimer 1.03 ug/mIFEU (0-0.59)
[2020-01-01 03:34] LABS: C Reactive Protein 57.9 mg/L (0.0-4.9)
[2020-01-01 03:40] LABS: Alanine Aminotransferase 39 U/L (0-41); Albumin Level 2.7 g/dL (3.5-5.2); Alkaline Phosphatase 54 IU/L (40-130); Aspartate Amino Transferase 49 U/L (0-40); Blood Urea Nitrogen 43 mg/dL (8-23); Calcium 7.5 mg/dL (8.5-10.5); Carbon Dioxide 23 mmol/L (22-29); Creatinine Clr Calc Pharmacy 53.3972; Globulin 2.9 g/dL (1.3-4.6); Glomerular Filtration Rate 50.1 mL/min (90-130); Glucose 208 mg/dL (65-115); Lactate Dehydrogenase 474 U/L (135-225); Magnesium 2.7 mg/dL (1.7-2.3); NT Pro B Type Natriuretic Pept 3682 pg/mL (0-125); Total Bilirubin 0.4 mg/dL (0.15-1.2); Total Protein 5.6 g/dL (6.6-8.7)
[2020-01-01] MEDS: piperacillin-tazobactam 3.375 GM in sodium chloride 0.9% (plus) 50 ML IV ×3 (03:44→18:04)
[2020-01-01 04:00] LABS: Partial Thromboplastin Time 76.4 SECONDS (23.9-36.7)
[2020-01-01 04:05] LABS: Ferritin 3546 ng/mL (30-400)
[2020-01-01 04:28] LABS: Anion Gap 11.2 (5-19); Chloride 117 mmol/L (98-107); Osmolality Calculated 321 mOsm/kg (285-295); Potassium 4.2 mmol/L (3.5-5.1); Sodium 147 mmol/L (136-145)
[2020-01-01 06:39] LABS: ABG PCO2 35.6 mmHg (35-45); ABG PH Result 7.41 (7.35-7.45); Arterial Blood Gas Hematocrit 35.8 % (42-52); Base Excess ABG -1.7 mmol/L (-2.0-2.0); Blood Gas Allen Test Pos; Blood Gas Sample Type Arterial; Carboxyhemoglobin 1.1 %THgb (0.4-20.1); HCO3 ABG 22.6 mmol/L (22-26); HGB O2 Sat 91.1 % (95-100); Ionized Calcium Level - ABG 1.1 mmol/L (1.1-1.4); Methemoglobin 0.8 % (0.4-1.5); Oxygen Saturation ABG 92.8; PO2 ABG 62.8 mmHg (80.0-100.0); Total Hemoglobin 11.7 g/dL (14-18)
[2020-01-01 06:40] LABS: Alveolar-Arterial Oxygen Gradi 31.7 mmHg (5-10); Blood Gas Sample Site Radial, right; Oxygen Device VENT
--- NOTE | 2020-01-01 06:58 | PM.PN ---
Subjective Subjective: Interval history: remains intubated and sedated. Medications: Reviewed: Yes Medication Review Details: Current Medications Acetaminophen (Tylenol) 650 mg PO Q6H PRN PRN Reason: Mild/Mod Pain Or Temp >/= 101 Albuterol/Ipratropium (Duoneb) 3 ml INHALATION Q4H PRN PRN Reason: SHORTNESS OF BREATH Last Admin: 01/01/20 03:50 Dose: 3 ml Documented by: Allopurinol (Zyloprim) 300 mg PO DAILY [facility] Last Admin: 12/31/19 08:35 Dose: 300 mg Documented by: Aspirin (Aspirin Ec) 81 mg PO DAILY [facility]ONAM Last Admin: 12/31/19 08:35 Dose: 81 mg Documented by: Atorvastatin Calcium (Lipitor) 20 mg PO DAILY [facility] Last Admin: 12/31/19 08:35 Dose: 20 mg Documented by: Bisacodyl (Dulcolax) 10 mg PO DAILY PRN PRN Reason: CONSTIPATION Budesonide (Pulmicort) 0.25 mg INHALATION BID.RESPIRATORY [facility] Last Admin: 12/31/19 20:52 Dose: 0.25 mg Documented by: Calcitriol (Rocaltrol) 0.25 mcg PO DAILY [facility] Last Admin: 12/31/19 08:35 Dose: 0.25 mcg Documented by: Calcium Carbonate (Oyster Shell 600mg-Vit D 400unit) 1 each PO DAILY [facility] Last Admin: 12/31/19 08:35 Dose: 1 each Documented by: Calcium Carbonate (Tums) 500 mg PO BID [facility] Last Admin: 12/31/19 17:15 Dose: 500 mg Documented by: Dexamethasone (Decadron) 6 mg IVP Q24H [facility] Last Admin: 12/31/19 12:56 Dose: 6 mg Documented by: Diphenhydramine HCl (Benadryl) 25 mg PO BEDTIME PRN PRN Reason: Sleep Hydromorphone HCl (Dilaudid Tab) 2 mg PO Q6H PRN PRN Reason: SEVERE PAIN Azithromycin 500 mg/ Sodium (Chloride) 250 mls @ 250 mls/hr IV Q24H [facility]; Protocol Last Infusion: 12/31/19 18:02 Dose: Infused Documented by: Heparin Sodium/Sodium Chloride (Heparin Drip) 25,000 unit in 500 mls @ 29.03 mls/hr IV .[id number] [facility] Last Admin: 12/31/19 23:25 Dose: 10.47 unit/kg/hr, 19 mls/hr Documented by: Propofol (Diprivan) 1,000 mg in 100 mls @ 0 mls/hr IV .Q0M [facility]ONAM; Protocol Last Titration: 12/27/19 22:30 Dose: 0 mcg/kg/min, 0 mls/hr Documented by: Dexmedetomidine HCl 400 mcg/ (Sodium Chloride) 104 mls @ 0 mls/hr IV .Q0M [facility]ONAM; Protocol Last Admin: 12/31/19 16:31 Dose: 0.3 mcg/kg/hr, 7.1 mls/hr Documented by: Piperacillin Sod/Tazobactam (Sod 3.375 gm/ Sodium Chloride) 50 mls @ 12.5 mls/hr IV Q8H [facility]AM; Protocol Last Admin: 01/01/20 03:44 Dose: 12.5 mls/hr Documented by: Fentanyl 1,000 mcg/ Sodium (Chloride) 100 mls @ 0 mls/hr IV .Q0M [facility]ONAM; Protocol Stop: 01/04/20 23:59 Last Admin: 12/31/19 23:25 Dose: 50 mcg/hr, 5 mls/hr Documented by: Midazolam HCl 100 mg/ Sodium (Chloride) 100 mls @ 0 mls/hr IV .Q0M [facility]; Protocol Last Admin: 12/31/19 23:25 Dose: 2 mg/hr, 2 mls/hr Documented by: Norepinephrine Bitartrate 4 mg (/ Dextrose) 254 mls @ 0 mls/hr IV .Q0M [facility]ONAM; Protocol Last Titration: 12/28/19 13:00 Dose: 0 mcg/min, 0 mls/hr Documented by: Sodium Chloride (Sodium Chloride 0.45%) 1,000 mls @ 75 mls/hr IV .[id number] [facility] Last Admin: 12/31/19 21:56 Dose: 75 mls/hr Documented by: Vancomycin HCl 1,250 mg/ (Sodium Chloride) 250 mls @ 166.667 mls/hr IV Q24H [facility] Last Admin: 12/31/19 20:43 Dose: 166.7 mls/hr Documented by: Morphine Sulfate (Morphine) 2 mg IVP Q4H PRN PRN Reason: SEVERE PAIN Last Admin: 12/30/19 17:45 Dose: 2 mg Documented by: Naloxone HCl (Narcan) 0.1 mg IVP Q2M PRN PRN Reason: OPIATERV Ondansetron HCl (Zofran) 4 mg IVP Q8H PRN PRN Reason: vomiting, or N/V if npo Pantoprazole Sodium (Protonix) 40 mg IVP Q24H [facility] Last Admin: 12/31/19 15:14 Dose: 40 mg Documented by: Vitals/I&O/Wt Last Vital Signs Temp 97.4 F L 01/01/20 06:00 Pulse 68 01/01/20 06:00 Resp 10 L 01/01/20 06:17 BP 154/75 01/01/20 06:00 Pulse Ox 94 01/01/20 06:00 12/31/19 12/31/19 01/01/20 14:59 22:59 06:59 Intake Total 785.147 / 609.237 1336.053 / 2414.200 311.4 / 2725.600 Output Total 400 / 400 600 / 1000 700 / 1700 Balance 385.147 / 212.230 1042.053 / 1414.200 -388.6 / 1025.600 Weight last 48 hrs Weight 92.703 kg Weight 89.63 kg Physical Exam Narrative: EXAM NARRATIVE: intubated, sedated vent fio2=50%, peep10, rr12, heent- nc/at, eomi neck no jvp lung crackles and ronchi b/l heart reg abd soft, nt ext 1+ b/l edema neuro- sedated Urinary Catheter Management^: Muniz: Cath Placed During This Visit: yes Reason for Continuing Indwelling Catheter: Accurate Measurement of Urinary Output in Critically Ill Patients Urinary Catheter Date of Insertion: 12/27/19 Urinary Catheter Time of Insertion: 17:59 Data : 01/01/20 02:55 01/01/20 02:55 Micro: Microbiology 12/27/19 21:25 Urine Culture - Preliminary Urine,Clean Catch A&P Additional A&P Information 1. Acute kidney injury, renal function improving. d/c fluids 2. VDRF, COVID, pnuemonia- check vanco trough- please keep under 19 3. Lactic acidosis improved, pH normal 4. Chronic kidney disease stage 2- 3 5. CHF- EF 35%, VDRF-start lasix. further care per cardiology 6. hypernatremia-will give free water via NG tube 7. monitor uop, chemistries 8. low ca- cont vitd and ca. d/c calcitriol Attestations Medical Necessity Statement*: VDRF, SARS-2 pna, covid-19 Time Spent in Patient Care: Greater than 35 minutes Coding Level of Care Code Acute Extruder Operator Vertical for Nadirg Maria M
[2020-01-01] MEDS: bumetanide 0.25 mg/mL SDV 4 mL 1 MG IV ×2 (08:03→19:34)
[2020-01-01] MEDS: calcium carb-vit d 600mg/400unit 1 Tablet 1 EACH PO (08:03)
[2020-01-01] MEDS: allopurinol 300 mg Tablet PO (08:03)
[2020-01-01] MEDS: aspirin 81 mg EC Tablet PO (08:03)
[2020-01-01] MEDS: atorvastatin 40 mg Tablet 20 MG PO (08:04)
[2020-01-01] MEDS: calcium carbonate 500 mg Chew Tablet PO ×2 (08:06→17:54)
[2020-01-01] MEDS: budesonide 0.5 mg/2 mL Neb 0.25 MG INHALATION ×2 (08:29→20:14)
[2020-01-01] MEDS: dexmedetomidine 400 MCG in sodium chloride 0.9% (100 ml) 100 ML 7.1 MCG IV (09:26)
--- NOTE | 2020-01-01 10:58 | P.PN_ITS ---
Subjective Subjective: Interval history: Remains on vent support and sedation, seems fluid overloaded so will start on diuresis. Improving renal function and inflammatory markers. Consistently breathing over the vent, not overtly edematous, decreased swelling of L eye. Had 1000 mL urine output overnight. Seems to have more secretions today with suctioning. Has now completed 5 days of remdesevir. Medications: Reviewed: Yes Medication Review Details: Active Medications Generic Name Dose Route Start Last Admin Trade Name Freq PRN Reason Stop Dose Admin Acetaminophen 650 mg 12/27/19 14:38 Tylenol PO Q6H PRN Mild/Mod Pain Or Temp >/= 101 Albuterol/Ipratrop ium 3 ml 12/28/19 00:04 01/01/20 08:29 Duoneb INHALATION 3 ml Q4H PRN Administration SHORTNESS OF GAYLA TH Allopurinol 300 mg 12/28/19 09:00 01/01/20 08:03 Zyloprim PO 300 mg DAILY SONAM Administration Aspirin 81 mg 12/28/19 09:00 01/01/20 08:03 Aspirin Ec PO 81 mg DAILY SONAM Administration Atorvastatin Calci um 20 mg 12/28/19 09:00 01/01/20 08:04 Lipitor PO 20 mg DAILY SONAM Administration Bisacodyl 10 mg 12/27/19 14:38 Dulcolax PO DAILY PRN CONSTIPATION Budesonide 0.25 mg 12/28/19 08:00 01/01/20 08:29 Pulmicort INHALATION 0.25 mg BID.RESPIRATORY S CH Administration Bumetanide 1 mg 01/01/20 08:00 01/01/20 08:03 Bumex IV 1 mg Q12H SONAM Administration Calcium Carbonate 1 each 12/28/19 09:00 01/01/20 08:03 Oyster Shell 600 mg-Vit D 400unit PO 1 each DAILY SONAM Administration Calcium Carbonate 500 mg 12/31/19 09:00 01/01/20 08:06 Tums PO 500 mg BID SONAM Administration Dexamethasone 6 mg 12/28/19 12:00 12/31/19 12:56 Decadron IVP 6 mg Q24H SONAM Administration Diphenhydramine HC l 25 mg 12/27/19 16:47 Benadryl PO BEDTIME PRN Sleep Hydromorphone HCl 2 mg 12/27/19 14:38 Dilaudid Tab PO Q6H PRN SEVERE PAIN Azithromycin 500 m g/ Sodium 250 mls @ 250 mls /hr 12/27/19 16:30 12/31/19 18:02 Chloride IV Infused Q24H SONAM Infusion Protocol Heparin Sodium/Sod ium Chloride 25,000 unit in 50 0 mls @ 29.03 mls/ hr 12/27/19 15:00 01/01/20 07:37 Heparin Drip IV 9.37 unit/kg/hr .[id number] SONAM 17 mls/hr Infusion 16 UNIT/KG/HR Propofol 1,000 mg in 100 m ls @ 0 mls/hr 12/27/19 17:30 12/27/19 22:30 Diprivan IV 0 mcg/kg/min .Q0M SONAM 0 mls/hr Titration Protocol Per Protocol Dexmedetomidine HC l 400 mcg/ 104 mls @ 0 mls/h r 12/27/19 18:00 01/01/20 09:26 Sodium Chloride IV 0.3 mcg/kg/hr .Q0M SONAM 7.1 mls/hr Administration Protocol Per Protocol Piperacillin Sod/T azobactam 50 mls @ 12.5 mls /hr 12/27/19 19:00 01/01/20 10:19 Sod 3.375 gm/ So dium Chloride IV 12.5 mls/hr Q8H SONAM Administration Protocol Fentanyl 1,000 mcg / Sodium 100 mls @ 0 mls/h r 12/27/19 20:15 01/01/20 10:44 Chloride IV 01/04/20 23:59 25 mcg/hr .Q0M SONAM 2.5 mls/hr Titration Protocol Per Protocol Midazolam HCl 100 mg/ Sodium 100 mls @ 0 mls/h r 12/27/19 20:15 01/01/20 10:45 Chloride IV 1 mg/hr .Q0M SONAM 1 mls/hr Titration Protocol Per Protocol Norepinephrine Bit artrate 4 mg 254 mls @ 0 mls/h r 12/27/19 23:00 12/28/19 13:00 / Dextrose IV 0 mcg/min .Q0M SONAM 0 mls/hr Titration Protocol Per Protocol Vancomycin HCl 1,2 50 mg/ 250 mls @ 166.667 mls/hr 12/31/19 20:00 01/01/20 07:37 Sodium Chloride IV Infused Q24H SONAM Infusion Morphine Sulfate 2 mg 12/27/19 14:38 12/30/19 17:45 Morphine IVP 2 mg Q4H PRN Administration SEVERE PAIN Naloxone HCl 0.1 mg 12/27/19 14:38 Narcan IVP Q2M PRN OPIATERV Ondansetron HCl 4 mg 12/27/19 14:38 Zofran IVP Q8H PRN vomiting, or N/V if npo Pantoprazole Sodiu m 40 mg 12/27/19 16:00 12/31/19 15:14 Protonix IVP 40 mg Q24H SONAM Administration leflunomide [From Arava] Allergy (Intermediate, Verified 12/27/19 13:45) rash Vitals/I&O/Wt Last Vital Signs Temp 98.3 F 01/01/20 07:32 Pulse 64 01/01/20 10:00 Resp 16 01/01/20 08:40 BP 156/76 01/01/20 10:00 Pulse Ox 96 01/01/20 10:00 12/31/19 01/01/20 01/01/20 22:59 06:59 14:59 Intake Total 1629.053 / 2414.200 311.4 / 2725.600 1375.300 / 1375.300 Output Total 600 / 1000 700 / 1700 Balance 1029.053 / 1414.200 -388.6 / 3624.351 6197.300 / 1375.300 Weight last 48 hrs Weight 92.703 kg Weight 89.63 kg Physical Exam Const: COMMON NORMALS: no acute distress GENERAL APPEARANCE: patient [facility] anically ventilated ORIENTATION/CONSCIOUSNESS: Yes awake OTHER: -sedated HENMT: COMMON NORMALS: normocephalic and atraumatic HEAD & SCALP: normocephalic and atraumatic OTHER: -orally intubated; ETT- 25 cm at lip Eye: COMMON NORMALS: Equal, round and reactive pupils present, EOMs intact bilaterally and conjunctivae normal CONJUNCTIVA: Yes conjunctivae normal PUPIL: Yes Equal, round and reactive pupils present Neck/C-Spine: COMMON NORMALS: full ROM GENERAL: Yes normal visual inspection and Yes trachea midline Resp: COMMON NORMALS: normal respiratory effort, No retractions and No use of accessory muscles EFFORT & INSPECTION: Yes symmetric chest movement AUSCUL TATION: rales, rhonchi and diminished lung sounds OTHER: -on vent support (500/50%/10); consistently breathing over the vent -more secretions noted Cardio: COMMON NORMALS: regular rate, regular rhythm, S1 normal heart sound present, S2 normal heart sound present and No murmurs present (Cardio) RATE: regular rate RHYTHM: regular rhythm HEART SOUNDS: S1 normal heart sound present and S2 normal heart sound present GI: COMMON NORMALS: Normal to inspection, nondistended, normoactive bowel sounds present, Soft to palpation and non-tender PALPATION: Yes Soft to palpation : BLADDER/KIDNEY EXAM: Yes catheter in place Extremity: COMMON NORMALS: normal to inspection, full ROM and no clubbing, cyanosis or edema; negative for no pedal edema Neuro: COMMON NORMALS: moves all extremities, no focal motor deficits, no sensory deficits noted and gait normal OTHER: -sedated Psych: COMMON NORMALS: mental status grossly normal, Normal thought process present, cooperative, normal affect and speech normal SPEECH: Yes normal speech THOUGHT PROCESS: Normal thought process present OTHER: -sedated; on fentanyl, versed, precedex Skin: COMMON NORMALS: no rashes or lesions noted, no jaundice, no petechiae and no mottling GENERAL SKIN EXAM: no rashes or lesions noted Urinary Catheter Management^: Muniz: Cath Placed During This Visit: yes Reason for Continuing Indwelling Catheter: Accurate Measurement of Urinary Output in Critically Ill Patients Urinary Catheter Date of Insertion: 12/27/19 Urinary Catheter Time of Insertion: 17:59 Data : 01/01/20 02:55 01/01/20 02:55 Micro: Microbiology 12/27/19 21:25 Urine Culture - Final Urine,Clean Catch A&P Assessment and plan (1) Respiratory failure with hypoxia: -Acute hypoxic respiratory failure requiring intubation in the ER on admission; remains on ventilator support with gradually decreasing oxygen requirement -Weaning trial on hold for today to allow for diuresis; on tube feeds -Continued close monitoring of respiratory status -Continue empiric antibiotic coverage -s/p 5 days of remdesivir (12/30) -Continue IV steroids, supportive care -Continue to trend inflammatory markers -Chest x-ray unchanged -sputum cx; mixed khloe, gram stain polymicrobial -seems to be fluid overloaded, will start on diuresis with bumex Status: Acute Qualifiers: Chronicity: acute Qualified Code(s): J96.01 - Acute respiratory failure with hypoxia (2) Pneumonia due to COVID-19 virus: -Imaging including CT of the chest consistent with viral pneumonia sec ondary to COVID-19 infection -Treatment as noted above -Not oxygen dependent at baseline, home oxygen evaluation prior to discharge if appropriate Status: Acute (3) CKD (chronic kidney disease): -JULIA on CKD stage 2 -Baseline creatinine appears to be around 1 -Noted improvement in renal function, continue to monitor -Renally dose meds, avoid nephrotoxins -Nephrology consultation appreciated -off IVF hydration Status: Acute Qualifiers: Chronic kidney disease stage: stage 2 (mild) Qualified Code(s): N18.2 - Chronic kidney disease, stage 2 (mild) (4) Seropositive rheumatoid arthritis of multiple joints: -Follows up with Dr. Macias -Is on chronic steroids and Xeljanz; has had difficulty tolerating alternative t reatment Status: Chronic Additional A&P Information -History of combined systolic and diastolic CHF; s/p pacemaker, defibrillator; f/u with cardiology. Echo (2018): EF=31%, G1DD, global LV hypokinesis, mild MR, trace AR, mild TR, trace MT -hx of gout -hx of iron deficiency anemia; H/H stable -prior hx of Erlichiosis with sepsis and multi-organ failure -NPO due to vent support; on tube feeds -GI ppx with PPI -DVT ppx not needed as on heparin drip -Dispo: home -Code status: FULL code Attestations Medical Necessity Statement*: Patient requires hospitalization for continued management of COVID-19 pneumonia, fluid overload, remains on vent support, antibiotic therapy. Time Spent in Patient Care: 16 - 35 minutes (>than 50% of time spent in counselling and/or direct pt care on unit) . Coding Level of Care Code Acute Major Case Detective for [facility] Fwd Diagnoses Respiratory failure with hypoxia J96.01 Chronicity: acute Pneumonia due to COVID-19 virus U07.1; J12.89 CKD (chronic kidney disease) N18.2 Chronic kidney disease stage: stage 2 (mild) Seropositive rheumatoid arthritis of multiple joints M05.79
[2020-01-01 10:59] LABS: Partial Thromboplastin Time 63.8 SECONDS (23.9-36.7)
[2020-01-01] MEDS: dexamethasone 4 mg/mL INJ 6 MG IVP (11:33)
--- NOTE | 2020-01-01 14:15 | PC.SOCIAL ---
[facility] Updated Page 2 of [facility] updated with patient's spouse Lakeshia over the phone. She verbalizes understanding. Initialed, dated, and timed. Will be sent to medical records upon d/c to be scanned into patient's EHR.
[2020-01-01] MEDS: heparin drip 25,000 UNIT/500 ML PREMIX 17 UNIT IV (15:05)
[2020-01-01] MEDS: pantoprazole 40 mg SDV IVP (16:06)
[2020-01-01] MEDS: artificial tears Op Soln 15 mL Btl 1 DROP EYE-BOTH (16:12)
[2020-01-01] MEDS: azithromycin 500 MG in sodium chloride 0.9% 250 ML 250 MG IV (16:32)
[2020-01-01 17:24] LABS: Partial Thromboplastin Time 51.3 SECONDS (23.9-36.7)
--- NOTE | 2020-01-01 18:32 | PC.NURSE ---
Patient Vitals were not transferred over to the monitor. Visible on the monitor. But unable to transfer to expanse. Patients vitals were monitored q 15 minutes and stable. Will record every hour manually. MD Butler aware.
--- NOTE | 2020-01-01 19:53 | PC.NURSE ---
O2 sat 87-88 50% fio2 mech vented, coarse crackles throughout, ET suctioned, RT notified, scheduled Bumex administered
[2020-01-01 20:26] LABS: Vancomycin Trough 11.7 ug/mL (10-15)
[2020-01-01 23:13] LABS: Partial Thromboplastin Time 54.5 SECONDS (23.9-36.7)
--- NOTE | 2020-01-01 23:37 | PC.NURSE ---
Heparin drip changed from 19 ml/hr to 20 ml/hr for ptt of 54.5 per protocol sheet
[2020-01-01 23:38] LABS: Interleukin 6 (IL-6) Serum 48.88 pg/mL (<5.00)
[2020-01-02] VITALS (39 sets, daily range): BP systolic 123–170; BP diastolic 59–87; PULSE 57–82; RESP 12–22; TEMP 36.4–37.1; O2SAT 85–96
[2020-01-02] MEDS: piperacillin-tazobactam 3.375 GM in sodium chloride 0.9% (plus) 50 ML IV ×3 (02:57→18:10)
[2020-01-02] MEDS: dexmedetomidine 400 MCG in sodium chloride 0.9% (100 ml) 100 ML 7.1 MCG IV ×2 (03:14→17:27)
[2020-01-02 04:14] LABS: ABG PCO2 42.8 mmHg (35-45); ABG PH Result 7.38 (7.35-7.45); Arterial Blood Gas Hematocrit 39.6 % (42-52); Base Excess ABG -0.3 mmol/L (-2.0-2.0); Blood Gas Allen Test Pos; Blood Gas Sample Site Radial, right; Blood Gas Sample Type Arterial; HCO3 ABG 25.1 mmol/L (22-26); Oxygen Device VENT; PO2 ABG 60.4 mmHg (80.0-100.0)
[2020-01-02 05:48] LABS: Basophils % 0.1 %; Hematocrit 36.4 % (42.0-52.0); Hemoglobin 11.7 g/dL (11.7-16.6); Lymphocytes # 0.1 10^3/uL (0.8-4.8); Lymphocytes % 1.3 %; Mean Corpuscular HGB Conc 32.1 g/dL (30.0-36.0); Mean Corpuscular Hemoglobin 31.9 pg (28.0-34.0); Mean Corpuscular Volume 99.2 fL (80-94); Mean Platelet Volume 10.8 fL (7.4-10.4); Monocytes # 0.3 10^3/uL (0.2-0.9); Monocytes % 3.8 %; Neutrophils # 6.92 10^3/uL (1.8-7.7); Neutrophils % 93.1 %; Nucleated Red Blood Cells % 0 %; Platelet Count 260 10^3/cmm (130-400); Red Blood Count 3.67 10^6/uL (4.1-5.3); Red Cell Distribution Width 14.1 % (12.1-15.1); White Blood Count 7.4 10^3/uL (4.0-10.0)
--- NOTE | 2020-01-02 06:00 | XR_ITS ---
WS: [id number] Exam: XR chest 1V portable [id number] Date/Time of Exam: 01/02/2020 6:00 AM Reason For Exam: COVID-19 +, on vent support Comparison 12/31/2019. Bilateral pulmonary infiltrates are noted. Infiltrates in the right lung shows slight improvement but no other significant change. ET tube is unchanged in position. There is an NG tube that appears to e nd in the antrum of stomach. Permanent cardiac pacer seen over the left chest. XR/XR chest 1V portable [id number] IMPRESSION: 1. Bilateral pulmonary infiltrates noted. Infiltrates on the right have improve d but no other change in the overall appearance the chest.
[2020-01-02 06:10] LABS: Alanine Aminotransferase 38 U/L (0-41); Alkaline Phosphatase 58 IU/L (40-130); Aspartate Amino Transferase 35 U/L (0-40); Carbon Dioxide 24 mmol/L (22-29); Potassium 4.5 mmol/L (3.5-5.1); Total Bilirubin 0.4 mg/dL (0.15-1.2)
[2020-01-02 06:11] LABS: Magnesium 2.3 mg/dL (1.7-2.3); Sodium 145 mmol/L (136-145)
[2020-01-02 06:33] LABS: Fibrinogen 678 mg/dL (174-498)
[2020-01-02 06:36] LABS: D Dimer 1.28 ug/mIFEU (0-0.59)
[2020-01-02 06:59] LABS: Partial Thromboplastin Time 60.5 SECONDS (23.9-36.7)
[2020-01-02 07:03] LABS: Anion Gap 12.5 (5-19); Chloride 113 mmol/L (98-107)
[2020-01-02 07:04] LABS: Blood Urea Nitrogen 41 mg/dL (8-23); Calcium 7.7 mg/dL (8.5-10.5); Ferritin 3562 ng/mL (30-400); Glomerular Filtration Rate 54.6 mL/min (90-130); Glucose 197 mg/dL (65-115); Lactate Dehydrogenase 493 U/L (135-225); Osmolality Calculated 316 mOsm/kg (285-295)
[2020-01-02 07:05] LABS: Albumin Level 2.5 g/dL (3.5-5.2); Globulin 3.2 g/dL (1.3-4.6); NT Pro B Type Natriuretic Pept 2825 pg/mL (0-125); Total Protein 5.7 g/dL (6.6-8.7)
[2020-01-02] MEDS: budesonide 0.5 mg/2 mL Neb 0.25 MG INHALATION ×2 (07:47→20:28)
[2020-01-02] MEDS: ipratropium-albuterol 3 mL Neb INHALATION ×3 (07:47→20:28)
[2020-01-02] MEDS: aspirin 81 mg EC Tablet PO (07:55)
[2020-01-02] MEDS: calcium carbonate 500 mg Chew Tablet PO ×2 (07:55→17:07)
[2020-01-02] MEDS: atorvastatin 40 mg Tablet 20 MG PO (07:55)
[2020-01-02] MEDS: allopurinol 300 mg Tablet PO (07:55)
[2020-01-02] MEDS: bumetanide 0.25 mg/mL SDV 4 mL 1 MG IV ×2 (07:56→21:11)
[2020-01-02] MEDS: artificial tears Op Soln 15 mL Btl 1 DROP EYE-BOTH ×2 (07:56→17:07)
[2020-01-02] MEDS: calcium carb-vit d 600mg/400unit 1 Tablet 1 EACH PO (08:54)
--- NOTE | 2020-01-02 09:56 | PC.NURSE ---
Patient is sedated and intubated. See initial assessment. Attempted sedation vacation. Patient would not follow commands. Did withdrawal in all extremeties though. Patient continually coughing, tachypnic, and sats dropped 88-89%. Had to increase oxygen to 70%. Turned patient's sedation back on. MD Butler aware.
--- NOTE | 2020-01-02 10:49 | P.PN_ITS ---
Subjective Subjective: Interval history: Attempted sedation vacation earlier this AM, unfortunately, became tachypneic and hypoxic, FiO2 increased to 70%. Had 1250 mL urine output overnight, net positive fluid balance of 1.8 L. Increased inflammatory markers. As the day has progressed we have been able to wean his FiO2 to 50%. Medications: Reviewed: Yes Medication Review Details: Active Medications Generic Name Dose Route Start Last Admin Trade Name Freq PRN Reason Stop Dose Admin Acetaminophen 650 mg 12/27/19 14:38 Tylenol PO Q6H PRN Mild/Mod Pain Or Temp >/= 101 Albuterol/Ipratrop ium 3 ml 12/28/19 00:04 01/02/20 07:47 Duoneb INHALATION 3 ml Q4H PRN Administration SHORTNESS OF GAYLA TH Allopurinol 300 mg 12/28/19 09:00 01/02/20 07:55 Zyloprim PO 300 mg DAILY SONAM Administration Artificial Tears 1 drop 01/01/20 18:00 01/02/20 07:56 Isopto Tears EYE-BOTH 1 drop BID SONAM Administration Aspirin 81 mg 12/28/19 09:00 01/02/20 07:55 Aspirin Ec PO 81 mg DAILY SONAM Administration Atorvastatin Calci um 20 mg 12/28/19 09:00 01/02/20 07:55 Lipitor PO 20 mg DAILY SONAM Administration Bisacodyl 10 mg 12/27/19 14:38 Dulcolax PO DAILY PRN CONSTIPATION Budesonide 0.25 mg 12/28/19 08:00 01/02/20 07:47 Pulmicort INHALATION 0.25 mg BID.RESPIRATORY S CH Administration Bumetanide 1 mg 01/01/20 08:00 01/02/20 07:56 Bumex IV 1 mg Q12H SONAM Administration Calcium Carbonate 1 each 12/28/19 09:00 01/02/20 08:54 Oyster Shell 600 mg-Vit D 400unit PO 1 each DAILY SONAM Administration Calcium Carbonate 500 mg 12/31/19 09:00 01/02/20 07:55 Tums PO 500 mg BID SONAM Administration Dexamethasone 6 mg 12/28/19 12:00 01/01/20 11:33 Decadron IVP 6 mg Q24H SONAM Administration Diphenhydramine HC l 25 mg 12/27/19 16:47 Benadryl PO BEDTIME PRN Sleep Hydromorphone HCl 2 mg 12/27/19 14:38 Dilaudid Tab PO Q6H PRN SEVERE PAIN Azithromycin 500 m g/ Sodium 250 mls @ 250 mls /hr 12/27/19 16:30 01/01/20 17:39 Chloride IV Infused Q24H SONAM Infusion Protocol Heparin Sodium/Sod ium Chloride 25,000 unit in 50 0 mls @ 25.401 mls /hr 12/27/19 15:00 01/01/20 23:32 Heparin Drip IV 20 unit/kg/hr .[id number] SONAM 36.3 mls/hr Infusion 14 UNIT/KG/HR Propofol 1,000 mg in 100 m ls @ 0 mls/hr 12/27/19 17:30 12/27/19 22:30 Diprivan IV 0 mcg/kg/min .Q0M SONAM 0 mls/hr Titration Protocol Per Protocol Dexmedetomidine HC l 400 mcg/ 104 mls @ 0 mls/h r 12/27/19 18:00 01/02/20 03:14 Sodium Chloride IV 0.3 mcg/kg/hr .Q0M SONAM 7.1 mls/hr Administration Protocol Per Protocol Piperacillin Sod/T azobactam 50 mls @ 12.5 mls /hr 12/27/19 19:00 01/02/20 10:37 Sod 3.375 gm/ So dium Chloride IV 12.5 mls/hr Q8H SONAM Administration Protocol Fentanyl 1,000 mcg / Sodium 100 mls @ 0 mls/h r 12/27/19 20:15 01/02/20 08:06 Chloride IV 01/04/20 23:59 50 mcg/hr .Q0M SONAM 5 mls/hr Administration Protocol Per Protocol Midazolam HCl 100 mg/ Sodium 100 mls @ 0 mls/h r 12/27/19 20:15 01/01/20 17:26 Chloride IV 2 mg/hr .Q0M SONAM 2 mls/hr Titration Protocol Per Protocol Norepinephrine Bit artrate 4 mg 254 mls @ 0 mls/h r 12/27/19 23:00 12/28/19 13:00 / Dextrose IV 0 mcg/min .Q0M SONAM 0 mls/hr Titration Protocol Per Protocol Vancomycin HCl 1,2 50 mg/ 250 mls @ 166.667 mls/hr 12/31/19 20:00 01/02/20 10:21 Sodium Chloride IV Infused Q24H SONAM Infusion Morphine Sulfate 2 mg 12/27/19 14:38 12/30/19 17:45 Morphine IVP 2 mg Q4H PRN Administration SEVERE PAIN Naloxone HCl 0.1 mg 12/27/19 14:38 Narcan IVP Q2M PRN OPIATERV Ondansetron HCl 4 mg 12/27/19 14:38 Zofran IVP Q8H PRN vomiting, or N/V if npo Pantoprazole Sodiu m 40 mg 12/27/19 16:00 01/01/20 16:06 Protonix IVP 40 mg Q24H SONAM Administration leflunomide [From Arava] Allergy (Intermediate, Verified 12/27/19 13:45) rash Vitals/I&O/Wt Last Vital Signs Temp 98.1 F 01/02/20 08:00 Pulse 82 01/02/20 10:00 Resp 20 H 01/02/20 10:00 BP 142/73 01/02/20 10:00 Pulse Ox 93 01/02/20 10:00 01/01/20 01/02/20 01/02/20 22:59 06:59 14:59 Intake Total 940.533 / 2676.416 215.783 / 2892.199 517.125 / 517.125 Output Total 450 / 700 1250 / 1950 Balance 490.533 / 1976.416 -1034.217 / 942.199 517.125 / 517.125 Weight last 48 hrs Weight 88.904 kg Weight 92.703 kg Physical Exam Const: COMMON NORMALS: no acute distress GENERAL APPEARANCE: patient mec hanically ventilated ORIENTATION/CONSCIOUSNESS: Yes awake OTHER: -sedated HENMT: COMMON NORMALS: normocephalic and atraumatic HEAD & SCALP: normocephalic and atraumatic OTHER: -orally intubated; ETT- 25 cm at lip Eye: COMMON NORMALS: Equal, round and reactive pupils present, EOMs intact bilaterally and conjunctivae normal CONJUNCTIVA: Yes conjunctivae normal PUPIL: Yes Equal, round and reactive pupils present Neck/C-Spine: COMMON NORMALS: full ROM GENERAL: Yes normal visual inspection and Yes trachea midline Resp: COMMON NORMALS: normal respiratory effort, No retractions and No use of accessory muscles EFFORT & INSPECTION: Yes symmetric chest movement AUSCU LTATION: rales, rhonchi and diminished lung sounds OTHER: -on vent support (500/70%/12); consistently breathing over the vent Cardio: COMMON NORMALS: regular rate, regular rhythm, S1 normal heart sound present, S2 normal heart sound present and No murmurs present (Cardio) RATE: regular rate RHYTHM: regular rhythm HEART SOUNDS: S1 normal heart sound present and S2 normal heart sound present GI: COMMON NORMALS: Normal to inspection, nondistended, normoactive bowel sounds present, Soft to palpation and non-tender PALPATION: Yes Soft to palpation : BLADDER/KIDNEY EXAM: Yes catheter in place OTHER: -R femoral central line Extremity: COMMON NORMALS: normal to inspection, full ROM and no clubbing, cyanosis or edema; negative for no pedal edema Neuro: COMMON NORMALS: moves all extremities, no focal motor deficits, no sensory deficits noted and gait normal OTHER: -sedated Psych: COMMON NORMALS: mental status grossly normal, Normal thought process present, cooperative, normal affect and speech normal SPEECH: Yes normal speech THOUGHT PROCESS: Normal thought process present OTHER: -sedated; on fentanyl, versed, precedex Skin: COMMON NORMALS: no rashes or lesions noted, no jaundice, no petechiae and no mottling GENERAL SKIN EXAM: no rashes or lesions noted Urinary Catheter Management^: Muniz: Cath Placed During This Visit: yes Reason for Continuing Indwelling Catheter: Accurate Measurement of Urinary Output in Critically Ill Patients Urinary Catheter Date of Insertion: 12/27/19 Urinary Catheter Time of Insertion: 17:59 Data : 01/02/20 04:00 01/02/20 04:00 Micro: Microbiology 12/27/19 12:45 Blood Culture - Final Blood NO GROWTH AFTER 5 DAYS 12/27/19 12:40 Blood Culture - Final Blood NO GROWTH AFTER 5 DAYS 12/27/19 21:25 Urine Culture - Final Urine,Clean Catch A&P Assessment and plan (1) Respiratory failure with hypoxia: -Acute hypoxic respiratory failure requiring intubation in the ER on admis shon; remains on ventilator support with gradually decreasing oxygen requirement -Weaning trial unsuccessful earlier this AM with noted tachypnea, hypoxia; on tube feeds -Continued close monitoring of respiratory status -Continue empiric antibiotic coverage -s/p 5 days of remdesivir (12/30) -Continue IV steroids, supportive care -Continue to trend inflammatory markers -Chest x-ray unchanged -sputum cx; mixed khloe, gram stain polymicrobial -seems to be fluid overloaded, on diuresis with bumex Status: Acute Qualifiers: Chronicity: acute Qualified Code(s): J96.01 - Acute respiratory failure with hypoxia (2) Pneumonia due to COVID-19 virus: -Imaging including CT of the chest consistent with viral pneumonia secondary to COVID-19 infection -Treatment as noted above -Not oxygen dependent at baseline, home oxygen evaluation prior to discharge if appropriate Status: Acute (3) CKD (chronic kidney disease): -JULIA on CKD stage 2 -Baseline creatinine appears to be around 1 -Noted improvement in renal function, continue to monitor -Renally dose meds, avoid nephrotoxins -Nephrology consultation appreciated -off IVF hydration Status: Acute Qualifiers: Chronic kidney disease stage: stage 2 (mild) Qualified Code(s): N18.2 - Chronic kidney disease, stage 2 (mild) (4) Seropositive rheumatoid arthritis of multiple joints: -Follows up with Dr. Macias -Is on chronic steroids and Xeljanz; has had difficulty tolerating alternative treatment Status: Chronic Additional A&P Information -History of combined systolic and diastolic CHF; s/p pacemaker, defibrillator; f/u with cardiology. Echo (2018): EF=31%, G1DD, global LV hypokinesis, mild MR, trace AR, mild TR, trace MN -hx of gout -hx of iron deficiency anemia; H/H stable -prior hx of Erlichiosis with sepsis and multi-organ failure -NPO due to vent support; on tube feeds -GI ppx with PPI -DVT ppx not needed as on heparin drip -Dispo: home -Code status: FULL code Attestations Medical Necessity Statement*: Patient requires hospitalization for continued management of COVID-19 pneumonia, remains on vent support; failed weaning trial today. Time Spent in Patient Care: 16 - 35 minutes (>than 50% of time spent in counselling and/or direct pt care on unit) . Coding Level of Care Code Acute Deputy County Attorney for [facility] Fwd Exam Comprehensive Diagnoses Respiratory failure with hypoxia J96.01 Chronicity: acute Pneumonia due to COVID-19 virus U07.1; J12.89 CKD (chronic kidney disease) N18.2 Chronic kidney disease stage: stage 2 (mild) Seropositive rheumatoid arthritis of multiple joints M05.79
[2020-01-02] MEDS: heparin drip 25,000 UNIT/500 ML PREMIX 20 UNIT IV (11:11)
[2020-01-02] MEDS: dexamethasone 4 mg/mL INJ 6 MG IVP (11:11)
--- NOTE | 2020-01-02 13:52 | P.PN_ITS ---
Vitals/I&O/Wt Last Vital Signs Temp 98.3 F 01/02/20 12:24 Pulse 62 01/02/20 13:00 Resp 13 01/02/20 11:14 BP 162/78 01/02/20 13:00 Pulse Ox 96 01/02/20 13:00 01/01/20 01/02/20 01/02/20 22:59 06:59 14:59 Intake Total 940.533 / 2676.416 215.783 / 2892.199 605.125 / 605.125 Output Total 450 / 700 1250 / 1950 1000 / 1000 Balance 490.533 / 1976.416 -1034.217 / 942.199 -394.875 / -394.875 Weight last 48 hrs Weight 88.904 kg Weight 92.703 kg Physical Exam Urinary Catheter Management^: Muniz: Cath Placed During This Visit: yes Reason for Continuing Indwelling Catheter: Accurate Measurement of Urinary Outpu t in Critically Ill Patients Urinary Catheter Date of Insertion: 12/27/19 Urinary Catheter Time of Insertion: 17:59 Data : 01/02/20 04:00 01/02/20 04:00 Micro: Microbiology 12/27/19 12:45 Blood Culture - Final Blood NO GROWTH AFTER 5 DAYS 12/27/19 12:40 Blood Culture - Final Blood NO GROWTH AFTER 5 DAYS A&P Additional A&P Information Nephrology signing off - please all if needed Attestations Medical Necessity Statement*: intubated Coding Level of Care Code Acute Home Health Occupational Therapist for [facility]
[2020-01-02] MEDS: pantoprazole 40 mg SDV IVP (15:31)
[2020-01-02] MEDS: azithromycin 500 MG in sodium chloride 0.9% 250 ML 250 MG IV (15:33)
[2020-01-02 17:09] LABS: Partial Thromboplastin Time 58.6 SECONDS (23.9-36.7)
--- NOTE | 2020-01-02 22:11 | PC.NURSE ---
Pain re-assessment note; Patient on Fentanyl gtt for pain control et ETT tolerance. Will leave gtt at current infusion rate et continue to monitor.
--- NOTE | 2020-01-02 23:36 | PC.NURSE ---
Intake and Output assessment note: The 50 mL tube feeding intake was from manual feeding tube flush.
--- NOTE | 2020-01-02 23:39 | PC.NURSE ---
Pain re-assessment note: Patient on cont Fentanyl gtt for pain management et ETT tolerance. patient currently tolerating ETT et mechanical ventilation well. Will continue to monitor.
[2020-01-03] VITALS (65 sets, daily range): BP systolic 115–172; BP diastolic 62–92; PULSE 60–105; RESP 12–22; TEMP 36.4–37.2; O2SAT 85–98
[2020-01-03] MEDS: ipratropium-albuterol 3 mL Neb INHALATION ×6 (00:13→19:50)
--- NOTE | 2020-01-03 02:05 | PC.NURSE ---
Masters Sedation Assessment: While patient is not display a masters score for increased sedation, respiratory bautista patient is. Patient is breathing 25-35 breaths per min, O2 sat >90% et RT states that patient is requiring increased FiO2,that she is having problems with the patient fighting against her et is biting on the ETT. When verbally directed to not bite on the ETT patient was not responsive to verbal direction. Will continue to monitor.
--- NOTE | 2020-01-03 02:11 | PC.NURSE ---
Masters Sedation Assessment: Patient is no longer biting on ETT et is no longer resisting mechanical ventilation. Will continue monitor.
[2020-01-03] MEDS: piperacillin-tazobactam 3.375 GM in sodium chloride 0.9% (plus) 50 ML IV ×3 (02:15→18:16)
[2020-01-03 04:33] LABS: ABG PCO2 41.6 mmHg (35-45); Alveolar-Arterial Oxygen Gradi 36.5 mmHg (5-10); Arterial Blood Gas Hematocrit 40.6 % (42-52); Base Excess ABG 0.9 mmol/L (-2.0-2.0); Blood Gas Sample Site Radial, left; Blood Gas Sample Type Arterial; Carboxyhemoglobin 0.6 %THgb (0.4-20.1); HCO3 ABG 25.8 mmol/L (22-26); HGB O2 Sat 90.6 % (95-100); Ionized Calcium Level - ABG 1.1 mmol/L (1.1-1.4); Methemoglobin 0.3 % (0.4-1.5); Oxygen Device VENT; Oxygen Saturation ABG 91.4; PO2 ABG 62.3 mmHg (80.0-100.0); Potassium Level - ABG 4.6 mmol/L (3.5-5.0); Total Hemoglobin 13.2 g/dL (14-18)
--- NOTE | 2020-01-03 04:45 | PC.NURSE ---
Patient having EKG changes. Notified Dr. Mendoza. 12 lead et troponin orders received. Will notify physician with results.
[2020-01-03 04:48] LABS: Anion Gap 12.6 (5-19); Blood Urea Nitrogen 42 mg/dL (8-23); Calcium 8.1 mg/dL (8.5-10.5); Carbon Dioxide 26 mmol/L (22-29); Chloride 111 mmol/L (98-107); Glomerular Filtration Rate 42.9 mL/min (90-130); Glucose 284 mg/dL (65-115); Osmolality Calculated 321 mOsm/kg (285-295); Potassium 4.6 mmol/L (3.5-5.1); Sodium 145 mmol/L (136-145)
--- NOTE | 2020-01-03 04:59 | ECG_ITS ---
"[facility] ED Test Date: 2020-01-03 Pat Name: Moses Joseph Department: Room: ICU19 Gender: Male Sales And Marketing Executive: MARCELA CARRILLO: 1950 Requested By: Pietro Mendoza Order Number: [id number] Kay MD: Hoa Martin M.D. Measurements Intervals [place] Rate: 79 P: 60 IN: 144 QRS: 113 QRSD: 107 T: 156 QT: 499 QTc: 572 Interpretive Statements A sense V paced rhythm Compared to ECG 12/27/2019 15:42:09 No significant changes Electronically Signed On 01-07-2020 19:26:41 SOLDERING MACHINE OPERATOR AUTOMATIC by Hoa Martin M.D. [id number]"
[2020-01-03 06:24] LABS: Fibrinogen 635 mg/dL (174-498)
[2020-01-03 06:26] LABS: D Dimer 1.34 ug/mIFEU (0-0.59)
[2020-01-03 06:45] LABS: Partial Thromboplastin Time 68.4 SECONDS (23.9-36.7)
[2020-01-03 06:56] LABS: Troponin T (5th) Once 41 ng/L (0-15)
[2020-01-03] MEDS: budesonide 0.5 mg/2 mL Neb 0.25 MG INHALATION ×2 (07:52→19:50)
[2020-01-03 08:22] LABS: Lactate Dehydrogenase 476 U/L (135-225)
[2020-01-03 08:49] LABS: Ferritin 3281 ng/mL (30-400)
[2020-01-03] MEDS: atorvastatin 40 mg Tablet 20 MG PO (09:04)
[2020-01-03] MEDS: bumetanide 0.25 mg/mL SDV 4 mL 1 MG IV (09:04)
[2020-01-03] MEDS: heparin drip 25,000 UNIT/500 ML PREMIX 20 UNIT IV (09:04)
[2020-01-03] MEDS: artificial tears Op Soln 15 mL Btl 1 DROP EYE-BOTH ×2 (09:04→17:40)
[2020-01-03] MEDS: aspirin 81 mg EC Tablet PO (09:10)
[2020-01-03] MEDS: calcium carb-vit d 600mg/400unit 1 Tablet 1 EACH PO (09:10)
[2020-01-03] MEDS: calcium carbonate 500 mg Chew Tablet PO ×2 (09:10→17:40)
[2020-01-03] MEDS: allopurinol 300 mg Tablet PO (09:54)
--- NOTE | 2020-01-03 10:13 | PC.SOCIAL ---
IMM Updated Updated pt's Lakeshia, via phone, Pg 2 IMM. No questions voiced. Signed, dated, & timed copy in chart.
--- NOTE | 2020-01-03 10:23 | P.PN_ITS ---
Subjective Subjective: Interval history: Remains on ventilator support, had 600 mL urine output overnight noted worsening in renal function so we will stop diuresis, inflammatory markers trending down. Will attempt weaning trial again today. Medications: Reviewed: Yes Medication Review Details: Active Medications Generic Name Dose Route Start Last Admin Trade Name Freq PRN Reason Stop Dose Admin Acetaminophen 650 mg 12/27/19 14:38 Tylenol PO Q6H PRN Mild/Mod Pain Or Temp >/= 101 Albuterol/Ipratrop ium 3 ml 12/28/19 00:04 01/03/20 07:52 Duoneb INHALATION 3 ml Q4H PRN Administration SHORTNESS OF GAYLA TH Allopurinol 300 mg 12/28/19 09:00 01/03/20 09:54 Zyloprim PO 300 mg DAILY SONAM Administration Artificial Tears 1 drop 01/01/20 18:00 01/03/20 09:04 Isopto Tears EYE-BOTH 1 drop BID SONAM Administration Aspirin 81 mg 12/28/19 09:00 01/03/20 09:10 Aspirin Ec PO 81 mg DAILY SONAM Administration Atorvastatin Calci um 20 mg 12/28/19 09:00 01/03/20 09:04 Lipitor PO 20 mg DAILY SONAM Administration Bisacodyl 10 mg 12/27/19 14:38 Dulcolax PO DAILY PRN CONSTIPATION Budesonide 0.25 mg 12/28/19 08:00 01/03/20 07:52 Pulmicort INHALATION 0.25 mg BID.RESPIRATORY S CH Administration Bumetanide 1 mg 01/01/20 08:00 01/03/20 09:04 Bumex IV 1 mg Q12H SONAM Administration Calcium Carbonate 1 each 12/28/19 09:00 01/03/20 09:10 Oyster Shell 600 mg-Vit D 400unit PO 1 each DAILY SONAM Administration Calcium Carbonate 500 mg 12/31/19 09:00 01/03/20 09:10 Tums PO 500 mg BID SONAM Administration Dexamethasone 6 mg 12/28/19 12:00 01/02/20 11:11 Decadron IVP 6 mg Q24H SONAM Administration Diphenhydramine HC l 25 mg 12/27/19 16:47 Benadryl PO BEDTIME PRN Sleep Hydromorphone HCl 2 mg 12/27/19 14:38 Dilaudid Tab PO Q6H PRN SEVERE PAIN Azithromycin 500 m g/ Sodium 250 mls @ 250 mls /hr 12/27/19 16:30 01/02/20 17:28 Chloride IV Infused Q24H SONAM Infusion Protocol Heparin Sodium/Sod ium Chloride 25,000 unit in 50 0 mls @ 25.401 mls /hr 12/27/19 15:00 01/03/20 09:04 Heparin Drip IV 11.02 unit/kg/hr .[id number] SONAM 20 mls/hr Administration 14 UNIT/KG/HR Propofol 1,000 mg in 100 m ls @ 0 mls/hr 12/27/19 17:30 12/27/19 22:30 Diprivan IV 0 mcg/kg/min .Q0M SONAM 0 mls/hr Titration Protocol Per Protocol Dexmedetomidine HC l 400 mcg/ 104 mls @ 0 mls/h r 12/27/19 18:00 01/03/20 04:15 Sodium Chloride IV 0.1 mcg/kg/hr .Q0M SONAM 2.4 mls/hr Titration Protocol Per Protocol Piperacillin Sod/T azobactam 50 mls @ 12.5 mls /hr 12/27/19 19:00 01/03/20 09:11 Sod 3.375 gm/ So dium Chloride IV Infused Q8H SONAM Infusion Protocol Fentanyl 1,000 mcg / Sodium 100 mls @ 0 mls/h r 12/27/19 20:15 01/03/20 05:28 Chloride IV 01/04/20 23:59 50 mcg/hr .Q0M SONAM 5 mls/hr Administration Protocol Per Protocol Midazolam HCl 100 mg/ Sodium 100 mls @ 0 mls/h r 12/27/19 20:15 01/03/20 05:27 Chloride IV 3 mg/hr .Q0M SONAM 3 mls/hr Administration Protocol Per Protocol Norepinephrine Bit artrate 4 mg 254 mls @ 0 mls/h r 12/27/19 23:00 12/28/19 13:00 / Dextrose IV 0 mcg/min .Q0M SONAM 0 mls/hr Titration Protocol Per Protocol Vancomycin HCl 1,2 50 mg/ 250 mls @ 166.667 mls/hr 12/31/19 20:00 01/02/20 21:10 Sodium Chloride IV 166.7 mls/hr Q24H SONAM Administration Morphine Sulfate 2 mg 12/27/19 14:38 12/30/19 17:45 Morphine IVP 2 mg Q4H PRN Administration SEVERE PAIN Naloxone HCl 0.1 mg 12/27/19 14:38 Narcan IVP Q2M PRN OPIATERV Ondansetron HCl 4 mg 12/27/19 14:38 Zofran IVP Q8H PRN vomiting, or N/V if npo Pantoprazole Sodiu m 40 mg 12/27/19 16:00 01/02/20 15:31 Protonix IVP 40 mg Q24H SONAM Administration leflunomide [From Arava] Allergy (Intermediate, Verified 12/27/19 13:45) rash Vitals/I&O/Wt Last Vital Signs Temp 98.9 F 01/03/20 07:00 Pulse 82 01/03/20 07:52 Resp 20 H 01/03/20 07:57 BP 160/78 01/03/20 07:00 Pulse Ox 95 01/03/20 07:52 01/02/20 01/03/20 01/03/20 22:59 06:59 14:59 Intake Total 1058.896 / 1664.021 712.96 / 2376.981 694.667 / 694.667 Output Total 400 / 1400 600 / 2000 Balance 658.896 / 264.021 112.96 / 376.981 694.667 / 694.667 Weight last 48 hrs Weight 89.584 kg Weight 88.904 kg Physical Exam Const: COMMON NORMALS: no acute distress GENERAL APPEARANCE: patient mechanically ventilated OTHER: -sedated HENMT: COMMON NORMALS: normocephalic and atraumatic HEAD & SCALP: normocephalic and atraumatic OTHER: -orally intubated; ETT- 25 cm at lip Eye: COMMON NORMALS: Equal, round and reactive pupils present, EOMs intact bilaterally and conjunctivae normal CONJUNCTIVA: Yes conjunctivae normal PUPIL: Yes Equal, round and reactive pupils present Neck/C-Spine: COMMON NORMALS: full ROM GENERAL: Yes normal visual i nspection and Yes trachea midline Resp: COMMON NORMALS: normal respiratory effort, No retractions and No use of accessory muscles EFFORT & INSPECTION: Yes symmetric chest movement AUSCULTATION: rales, rhonchi and diminished lung sounds OTHER: -on vent support (500/55%/10); consistently breathing over the vent Cardio: COMMON NORMALS: regular rate, regular rhythm, S1 normal heart sound present, S2 normal heart sound present and No murmurs present (Cardio) RATE: regular rate RHYTHM: regular rhythm HEART SOUNDS: S1 normal heart sound present and S2 normal heart sound present GI: COMMON NORMALS: Normal to inspection, nondistended, normoactive bowel sounds present, Soft to palpation and non-tender PALPATION: Yes Soft to palpation : BLADDER/KIDNEY EXAM: Yes catheter in place OTHER: -R femoral central line Extremity: COMMON NORMALS: normal to inspection NARRATIVE EXTREMITY EXAM: -non-pitting edema of bilateral hands Neuro: OTHER: -sedated Psych: OTHER: -sedated; on fentanyl, versed, precedex Skin: COMMON NORMALS: no rashes or lesions noted, no jaundice, no petechiae and no mottling GENERAL SKIN EXAM: no rashes or lesions noted Urinary Catheter Management^: Muniz: Cath Placed During This Visit: yes Reason for Continuing Indwelling Catheter: Accurate Measurement of Urinary Output in Critically Ill Patients Urinary Catheter Date of Insertion: 12/27/19 Urinary Catheter Time of Insertion: 17:59 Data : 01/02/20 04:00 01/03/20 03:33 A&P Assessment and plan (1) Respiratory failure with hypoxia: -Acute hypoxic respiratory failure requiring intubation in the ER on admission; remains on ventilator support with gradually decreasing oxygen requirement -Weaning trial unsuccessful earlier this AM with noted tachypnea, hypoxia; on tube feeds -Continued close monitoring of respiratory status -Continue empiric antibiotic coverage -s/p 5 days of remdesivir (12/30) -Continue IV steroids, supportive care -Continue to trend inflammatory markers -Chest x-ray unchanged -sputum cx; mixed khloe, gram stain polymicrobial -seems to be fluid overloaded, on diuresis with bumex Status: Acute Qualifiers: Chronicity: acute Qualified Code(s): J96.01 - Acute respiratory failure with hypoxia (2) Pneumonia due to COVID-19 virus: -Imaging including CT of the chest consistent with viral pneumonia secondary to COVID-19 infection -Treatment as noted above -Not oxygen dependent at baseline, home oxygen evaluation prior to discharge if appropriate Status: Acute (3) CKD (chronic kidney disease): -JULIA on CKD stage 2 -Baseline creatinine appears to be around 1 -Noted improvement in renal function, continue to monitor -Renally dose meds, avoid nephrotoxins -Nephrology consultation appreciated -off IVF hydration Status: Acute Qualifiers: Chronic kidney disease stage: stage 2 (mild) Qualified Code(s): N18.2 - Chronic kidney disease, stage 2 (mild) (4) Seropositive rheumatoid arthritis of multiple joints: -Follows up with Dr. Macias -Is on chronic steroids and Xeljanz; has had difficulty tolerating alternative treatment Status: Chronic Additional A&P Information -History of combined systolic and diastolic CHF; s/p pacemaker, defibrillator; f/u with cardiology. Echo (2018): EF=31%, G1DD, global LV hypokinesis, mild MR, trace AR, mild TR, trace WI -hx of gout -hx of iron deficiency anemia; H/H stable -prior hx of Erlichiosis with sepsis and multi-organ failure -NPO due to vent support; on tube feeds -GI ppx with PPI -DVT ppx not needed as on heparin drip -Dispo: home -Code status: FULL code -updated Lakeshia Joseph Attestations 2 Medical Necessity Statement*: Patient requires hospitalization for continued treatment of acute hypoxic respiratory failure, COVID-19 pneumonia, remains on ventilator support. Time Spent in Patient Care: 16 - 35 minutes (>than 50% of time spent in counselling and/or direct pt care on unit) . 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
[2020-01-03] MEDS: dexamethasone 4 mg/mL INJ 6 MG IVP (11:43)
[2020-01-03] MEDS: dexmedetomidine 400 MCG in sodium chloride 0.9% (100 ml) 100 ML 9.4 MCG IV (15:35)
[2020-01-03] MEDS: azithromycin 500 MG in sodium chloride 0.9% 250 ML 250 MG IV (16:57)
[2020-01-03] MEDS: pantoprazole 40 mg SDV IVP (16:58)
--- NOTE | 2020-01-03 18:33 | PC.NURSE ---
Wasted rest of versed that was still hanging in room. There was also a full bag of versed that had been scanned previously but not spiked. Wasted 100mls of non-spiked bag and then rest of used bag 20mls with Renae Canchola RN.
--- NOTE | 2020-01-03 18:47 | PC.NURSE ---
Was helping with intubation in room 11 and helping with sedation. Patient's PTT was late. Sent to lab at 1815. MD Butler aware. Will continue to monitor closely.
[2020-01-03 19:43] LABS: Partial Thromboplastin Time 68.9 SECONDS (23.9-36.7)
--- NOTE | 2020-01-03 22:37 | PC.NURSE ---
RHYTHM CHANGE Patient has 13 beat run of v-tach around 2104. Dr. Mendoza notified and informed there was no hypotension or oxygen desaturation associated with run and patient converted back to sinus rhythm on his own.
[2020-01-04] VITALS (57 sets, daily range): BP systolic 110–188; BP diastolic 61–101; PULSE 60–154; RESP 12–18; TEMP 36.2–37.1; O2SAT 89–98
[2020-01-04] MEDS: dexmedetomidine 400 MCG in sodium chloride 0.9% (100 ml) 100 ML 9.4 MCG IV (01:42)
[2020-01-04] MEDS: piperacillin-tazobactam 3.375 GM in sodium chloride 0.9% (plus) 50 ML IV ×3 (03:54→18:02)
[2020-01-04] MEDS: ipratropium-albuterol 3 mL Neb INHALATION ×5 (04:09→23:40)
--- NOTE | 2020-01-04 04:17 | PC.NURSE ---
TURN TO L SIDE Patient does not tolerate turning to left side as well as when supine or turned to right side. Patients oxygen desatted to upper 80s intermittently. Once patient repositioned, oxygen increased. Patient needs to be turned to left again and will be monitored.
--- NOTE | 2020-01-04 04:19 | PC.NURSE ---
LEFT EAR/CHEEK Patient has skin tear to left cheek and blister to left ear. Patients ear is no longer draining. Site cleaned with warm cloth. While optifoam covering ear lobe, ear lobe is soft and peeling, so site left open to air and when repositioned, it is ensure that there is no pressure on ear. Site on left cheek is also no longer draining. Cleansed with warm cloth also and left open to air with nothing covering.
[2020-01-04 04:24] LABS: ABG PCO2 43.6 mmHg (35-45); ABG PH Result 7.39 (7.35-7.45); Arterial Blood Gas Hematocrit 36.4 % (42-52); Base Excess ABG 1.2 mmol/L (-2.0-2.0); Blood Gas Sample Site Radial, left; Blood Gas Sample Type Arterial; HCO3 ABG 26.4 mmol/L (22-26); Oxygen Device VENT; PO2 ABG 58.1 mmHg (80.0-100.0)
--- NOTE | 2020-01-04 04:33 | PC.NURSE ---
BLOOD PRESSURE Physician notified of BP 170s/80s consistently throughout the night. No new orders at this time.
[2020-01-04 04:41] LABS: Anion Gap 13.4 (5-19); Blood Urea Nitrogen 44 mg/dL (8-23); C Reactive Protein 48.5 mg/L (0.0-4.9); Calcium 8.3 mg/dL (8.5-10.5); Carbon Dioxide 26 mmol/L (22-29); Chloride 111 mmol/L (98-107); Glomerular Filtration Rate 59.9 mL/min (90-130); Glucose 281 mg/dL (65-115); Osmolality Calculated 321 mOsm/kg (285-295); Potassium 5.4 mmol/L (3.5-5.1); Sodium 145 mmol/L (136-145)
--- NOTE | 2020-01-04 04:42 | PC.NURSE ---
SEDATION VACATION Patients sedation paused to assess neuro. Patient did not open eyes or follow commands. Patient does spontaneously move extremities but not to follow a command. While sedation paused, patient fighting against vent and oxygen dropped to 85%.
[2020-01-04 04:52] LABS: Partial Thromboplastin Time 71.5 SECONDS (23.9-36.7)
[2020-01-04 05:11] LABS: Ferritin 2871 ng/mL (30-400)
[2020-01-04 05:13] LABS: D Dimer 1.42 ug/mIFEU (0-0.59); Fibrinogen 662 mg/dL (174-498)
--- NOTE | 2020-01-04 05:27 | PC.NURSE ---
HEPARIN GTT Patients PTT has been within therapeutic range this shift. No change with heparin gtt. Rate of 20 mL/hour.
--- NOTE | 2020-01-04 06:00 | XRR_ITS ---
PROCEDURE INFORMATION: Exam: XR Chest, 1 View Exam date and time: 01/04/2020 5:29 AM Age: 69 years old Clinical indication: Device placement; Additional info: On vent support, covid-19 + TECHNIQUE: Imaging protocol: XR of the chest Views: 1 view. COMPARISON: CR XR chest 1V portable [id number] 01/02/2020 6:49 AM FINDINGS: Tubes, catheters and devices: Endotracheal tube tip resides 4.5 cm above the warren. Enteric tube extends to the abdomen. Cardiac device projects over the left chest with multiple intracardiac leads. Lungs: Persistent bilateral pulmonary consolidations with greatest involvement in the lower lungs and more prominent on the left. Allowing for differences of technique areas of consolidation are intervally progressive in density and air bronchograms. Pleural space: Unremarkable. No pleural effusion. No pneumothorax. Heart/Mediastinum: Cardiac enlargement is similar. Bones/joints: Unremarkable. XR/XR chest 1V portable [id number] IMPRESSION: 1. Bilateral predominantly lower lung areas of consolidation greatest on the left which appears intervally progressive. 2. Stable position of life support structures.
[2020-01-04] MEDS: bisacodyl 5 mg Tablet 10 MG PO (06:29)
[2020-01-04] MEDS: budesonide 0.5 mg/2 mL Neb 0.25 MG INHALATION ×2 (07:45→20:40)
[2020-01-04] MEDS: calcium carb-vit d 600mg/400unit 1 Tablet 1 EACH PO (09:01)
[2020-01-04] MEDS: artificial tears Op Soln 15 mL Btl 1 DROP EYE-BOTH ×2 (09:01→18:02)
[2020-01-04] MEDS: allopurinol 300 mg Tablet PO (09:01)
[2020-01-04] MEDS: atorvastatin 40 mg Tablet 20 MG PO (09:01)
[2020-01-04] MEDS: aspirin 81 mg EC Tablet PO (09:01)
[2020-01-04] MEDS: calcium carbonate 500 mg Chew Tablet PO ×2 (09:02→18:02)
--- NOTE | 2020-01-04 11:16 | PM.PN ---
Subjective Subjective: Interval history: Remains on vent support, FiO2-55%, had 1075 mL urine output overnight. Improved renal function, inflammatory markers trending up. Worsening lower lobe infiltrates on CXR today. Medications: Reviewed: Yes Medication Review Details: Active Medications Generic Name Dose Route Start Last Admin Trade Name Freq PRN Reason Stop Dose Admin Acetaminophen 650 mg 12/27/19 14:38 Tylenol PO Q6H PRN Mild/Mod Pain Or Temp >/= 101 Albuterol/Ipratrop ium 3 ml 12/28/19 00:04 01/04/20 07:40 Duoneb INHALATION 3 ml Q4H PRN Administration SHORTNESS OF GAYLA TH Allopurinol 300 mg 12/28/19 09:00 01/04/20 09:01 Zyloprim PO 300 mg DAILY SONAM Administration Artificial Tears 1 drop 01/01/20 18:00 01/04/20 09:01 Isopto Tears EYE-BOTH 1 drop BID SONAM Administration Aspirin 81 mg 12/28/19 09:00 01/04/20 09:01 Aspirin Ec PO 81 mg DAILY SONAM Administration Atorvastatin Calci um 20 mg 12/28/19 09:00 01/04/20 09:01 Lipitor PO 20 mg DAILY SONAM Administration Bisacodyl 10 mg 12/27/19 14:38 01/04/20 06:29 Dulcolax PO 10 mg DAILY PRN Administration CONSTIPATION Budesonide 0.25 mg 12/28/19 08:00 01/04/20 07:45 Pulmicort INHALATION 0.25 mg BID.RESPIRATORY S CH Administration Calcium Carbonate 1 each 12/28/19 09:00 01/04/20 09:01 Oyster Shell 600 mg-Vit D 400unit PO 1 each DAILY SONAM Administration Calcium Carbonate 500 mg 12/31/19 09:00 01/04/20 09:02 Tums PO 500 mg BID SONAM Administration Dexamethasone 6 mg 12/28/19 12:00 01/03/20 11:43 Decadron IVP 6 mg Q24H SONAM Administration Diphenhydramine HC l 25 mg 12/27/19 16:47 Benadryl PO BEDTIME PRN Sleep Hydromorphone HCl 2 mg 12/27/19 14:38 Dilaudid Tab PO Q6H PRN SEVERE PAIN Azithromycin 500 m g/ Sodium 250 mls @ 250 mls /hr 12/27/19 16:30 01/03/20 18:45 Chloride IV Infused Q24H SONAM Infusion Protocol Heparin Sodium/Sod ium Chloride 25,000 unit in 50 0 mls @ 25.401 mls /hr 12/27/19 15:00 01/03/20 09:04 Heparin Drip IV 11.02 unit/kg/hr .[id number] SONAM 20 mls/hr Administration 14 UNIT/KG/HR Propofol 1,000 mg in 100 m ls @ 0 mls/hr 12/27/19 17:30 12/27/19 22:30 Diprivan IV 0 mcg/kg/min .Q0M SONAM 0 mls/hr Titration Protocol Per Protocol Dexmedetomidine HC l 400 mcg/ 104 mls @ 0 mls/h r 12/27/19 18:00 01/04/20 01:45 CS T Sodium Chloride IV 0.5 mcg/kg/hr .Q0M SONAM 11.8 mls/hr Titration Protocol Per Protocol Piperacillin Sod/T azobactam 50 mls @ 12.5 mls /hr 12/27/19 19:00 01/04/20 08:00 Sod 3.375 gm/ So dium Chloride IV Infused Q8H SONAM Infusion Protocol Fentanyl 1,000 mcg / Sodium 100 mls @ 0 mls/h r 12/27/19 20:15 01/04/20 05:20 Chloride IV 01/04/20 23:59 100 mcg/hr .Q0M SONAM 10 mls/hr Administration Protocol Per Protocol Norepinephrine Bit artrate 4 mg 254 mls @ 0 mls/h r 12/27/19 23:00 12/28/19 13:00 / Dextrose IV 0 mcg/min .Q0M SONAM 0 mls/hr Titration Protocol Per Protocol Vancomycin HCl 1,2 50 mg/ 250 mls @ 166.667 mls/hr 12/31/19 20:00 01/03/20 21:56 Sodium Chloride IV Infused Q24H SONAM Infusion Morphine Sulfate 2 mg 12/27/19 14:38 12/30/19 17:45 Morphine IVP 2 mg Q4H PRN Administration SEVERE PAIN Naloxone HCl 0.1 mg 12/27/19 14:38 Narcan IVP Q2M PRN OPIATERV Ondansetron HCl 4 mg 12/27/19 14:38 Zofran IVP Q8H PRN vomiting, or N/V if npo Pantoprazole Sodiu m 40 mg 12/27/19 16:00 01/03/20 16:58 Protonix IVP 40 mg Q24H SONAM Administration leflunomide [From Arava] Allergy (Intermediate, Verified 12/27/19 13:45) rash Vitals/I&O/Wt Last Vital Signs Temp 98.5 F 01/04/20 08:30 Pulse 106 H 01/04/20 11:00 Resp 12 01/04/20 11:00 BP 177/89 01/04/20 11:00 Pulse Ox 91 01/04/20 11:00 01/03/20 01/04/20 01/04/20 23:59 06:59 14:59 Intake Total 50 / 50 Output Total Balance 50 / 50 Weight last 48 hrs Weight 91.354 kg Weight 89.584 kg Physical Exam Const: COMMON NORMALS: no acute distress GENERAL APPEARANCE: patient mechanically ventilated ORIENTATION/CONSCIOUSNESS: Yes awake OTHER: -sedated HENMT: COMMON NORMALS: normocephalic and atraumatic HEAD & SCALP: normocephalic and atraumatic OTHER: -orally intubated; ETT- 25 cm at lip Eye: COMMON NORMALS: Equal, round and reactive pupils present, EOMs intact bilaterally and conjunctivae normal CONJUNCTIVA: Yes conjunctivae normal PUPIL: Yes Equal, round and reactive pupils present Neck/C-Spine: COMMON NORMALS: full ROM GENERAL: Yes normal visual inspection and Yes trachea midline Resp: COMMON NORMALS: normal respiratory effort, No retractions and No use of accessory muscles EFFORT & INSPECTION: Yes symmetric chest movement AUSCULTATION: rales, rhonchi and diminished lung sounds OTHER: -on vent support (500/55%/10); consistently breathing over the vent Cardio: COMMON NORMALS: regular rate, regular rhythm, S1 normal heart sound present, S2 normal heart sound present and No murmurs present (Cardio) RATE: regular rate RHYTHM: regular rhythm HEART SOUNDS: S1 normal heart sound present and S2 normal heart sound present GI: COMMON NORMALS: Normal to inspection, nondistended, normoactive bowel sounds present, Soft to palpation and non-tender PALPATION: Yes Soft to palpation : BLADDER/KIDNEY EXAM: Yes catheter in place OTHER: -R femoral central line Extremity: COMMON NORMALS: normal to inspection NARRATIVE EXTREMITY EXAM: -non-pitting edema of bilateral hands Neuro: COMMON NORMALS: moves all extremities, no focal motor deficits, no sensory deficits noted and gait normal OTHER: -sedated Psych: COMMON NORMALS: mental status grossly normal, Normal thought process present, cooperative, normal affect and speech normal SPEECH: Yes normal speech THOUGHT PROCESS: Normal thought process present OTHER: -sedated; on fentanyl, versed, precedex Skin: COMMON NORMALS: no rashes or lesions noted, no jaundice, no petechiae and no mottling GENERAL SKIN EXAM: no rashes or lesions noted Urinary Catheter Management^: Muniz: Cath Placed During This Visit: yes Reason for Continuing Indwelling Catheter: Accurate Measurement of Urinary Output in Critically Ill Patients Urinary Catheter Date of Insertion: 12/27/19 Urinary Catheter Time of Insertion: 17:59 Data : 01/02/20 04:00 01/04/20 03:30 A&P Assessment and plan (1) Respiratory failure with hypoxia: -Acute hypoxic respiratory failure requiring intubation in the ER on admission; remains on ventilator support with gradually decreasing oxygen requirement -Weaning trial unsuccessful after multiple attempts throughout the week. Hold off on this given persistent hypoxia, persistent bilateral lower lobe infiltrates, concern for continued ARDS. -Continued close monitoring of respiratory status -Continue empiric antibiotic coverage -s/p 5 days of remdesivir (12/30); given minimal improvement, will give an additional 5 day course -Continue IV steroids, supportive care -Continue to trend inflammatory markers -Chest x-ray unchanged -sputum cx; mixed khloe, gram stain polymicrobial -due to initial concern for fluid overloaded, required some diuresis. Now off due to renal impairment -noted continued infiltrates in bilateral bases, will prone, add paralytic Status: Acute Qualifiers: Chronicity: acute Qualified Code(s): J96.01 - Acute respiratory failure with hypoxia (2) Acute respiratory distress syndrome (ARDS) due to 2019-nCoV: -clinically appears to have ARDS as evidenced by persistent hypoxia, bilateral pulmonary opacities -will plan on proning with sedation and paralytic -give additional doses of remdesevir -may consider convalescent plasma Status: Acute (3) Pneumonia due to COVID-19 virus: -Imaging including CT of the chest consistent with viral pneumonia secondary to COVID-19 infection -Treatment as noted above -Not oxygen dependent at baseline, home oxygen evaluation prior to discharge if appropriate Status: Acute (4) CKD (chronic kidney disease): -JULIA on CKD stage 2 -Baseline creatinine appears to be around 1 -Noted improvement in renal function, continue to monitor -Renally dose meds, avoid nephrotoxins -Nephrology consultation appreciated -off IVF hydration Status: Acute Qualifiers: Chronic kidney disease stage: stage 2 (mild) Qualified Code(s): N18.2 - Chronic kidney disease, stage 2 (mild) (5) Seropositive rheumatoid arthritis of multiple joints: -Follows up with Dr. Macias -Is on chronic steroids and Xeljanz; has had difficulty tolerating alternative treatment Status: Chronic Additional A&P Information -History of combined systolic and diastolic CHF; s/p pacemaker, defibrillator; f/u with cardiology. Echo (2018): EF=31%, G1DD, global LV hypokinesis, mild MR, trace AR, mild TR, trace VT -hx of gout -hx of iron deficiency anemia; H/H stable -prior hx of Erlichiosis with sepsis and multi-organ failure -NPO due to vent support; on tube feeds -GI ppx with PPI -DVT ppx not needed as on heparin drip -Dispo: home -Code status: FULL code -guarded prognosis given continued vent support, ARDS Attestations Medical Necessity Statement*: Patient requires hospitalization for continued management of COVID-19 pneumonia, ARDS, on vent support. Time Spent in Patient Care: Greater than 35 minutes (>than 50% of time spent in counselling and/or direct pt care on unit). Critical Care Time: The high probability of a clinically significant, sudden or life threatening deterioration of the patient's [respiratory] system(s) required my full and direct attention, intervention and personal management. The critical care time is as shown. 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
[2020-01-04] MEDS: propofol 1,000 MG/100 ML INJ 10.9 MG IV ×2 (11:43→16:58)
[2020-01-04] MEDS: dexmedetomidine 400 MCG in sodium chloride 0.9% (100 ml) 100 ML 16.5 MCG IV ×2 (11:44→19:22)
[2020-01-04] MEDS: dexamethasone 4 mg/mL INJ 6 MG IVP (11:44)
--- NOTE | 2020-01-04 14:25 | PC.NURSE ---
Addendum entered by Bekah Baxter RN 01/04/20 18:29: Train of 4 doen; Eyebrow 2 twitches on 6, right thumb twitch twice on setting of 8. Original Note: Vecuronium started at 0.8mcg/kg/min.
--- NOTE | 2020-01-04 14:30 | PC.NURSE ---
Pt place in prone position, with right side knee and elbow bent.
--- NOTE | 2020-01-04 14:51 | PC.NURSE ---
Train of 4: eyebrow twitched twice on 8, no right thumb twitch on setting of 9. Vecuronium decreased, see MAR.
--- NOTE | 2020-01-04 15:15 | PC.NURSE ---
Heart rated now elevated in the 140's. Dr Watts at bedside. Vecuronium decreased to 0.4mcg/kg/min per her direction.
[2020-01-04 15:28] LABS: Potassium 5.6 mmol/L (3.5-5.1)
[2020-01-04] MEDS: metoprolol tartrate 1 mg/1 mL SDV 5 mL 2.5 MG IV (15:36)
[2020-01-04] MEDS: pantoprazole 40 mg SDV IVP (15:42)
[2020-01-04] MEDS: azithromycin 500 MG in sodium chloride 0.9% 250 ML 250 MG IV (16:09)
--- NOTE | 2020-01-04 16:10 | PC.NURSE ---
Addendum entered by Bekah Baxter RN 01/04/20 18:39: Pt repositioned with left side up. Pt unable to fully turn head in same direction. Heparin gtt adjusted per protocol. Original Note: BIS monitoring acquired and started. BIS 20. Train of 4: Eyebrow twitching twice on setting of 8. Vecuronium decreased . Propofol decreased. See MAR.
[2020-01-04 16:15] LABS: Partial Thromboplastin Time 54.3 SECONDS (23.9-36.7)
[2020-01-04 17:53] LABS: ABG PCO2 59.1 mmHg (35-45); ABG PH Result 7.27 (7.35-7.45); Alveolar-Arterial Oxygen Gradi 74.2 mmHg (5-10); Arterial Blood Gas Hematocrit 42.6 % (42-52); Base Excess ABG -1.1 mmol/L (-2.0-2.0); Blood Gas Allen Test Pos; Blood Gas Operator Identificat CAK; Blood Gas Sample Site Radial, left; Blood Gas Sample Type Arterial; Carboxyhemoglobin 0.9 %THgb (0.4-20.1); HGB O2 Sat 93.2 % (95-100); Ionized Calcium Level - ABG 1.2 mmol/L (1.1-1.4); Methemoglobin 0.8 % (0.4-1.5); Oxygen Device VENT; Oxygen Saturation ABG 94.9; PO2 ABG 83.7 mmHg (80.0-100.0); Potassium Level - ABG 5.9 mmol/L (3.5-5.0); Total Hemoglobin 13.9 g/dL (14-18)
--- NOTE | 2020-01-04 18:00 | PC.NURSE ---
BIs 45. Train of 4: 2 twitches, eyebrow on setting of 6. No twitching of right thumb on setting of 9. Vecuronium at 0.2mcg/kg/min. Propofol at 10mcg/kg/min. Fentanyl remains at 100mcg/hr. Pt remians in prone position, repositioned with right side up.
[2020-01-04] MEDS: insulin regular-human 100 units/1 mL 10 UNIT IVP (18:03)
[2020-01-04] MEDS: calcium gluconate 0.1 gm/mL 10% SDV 10mL 1 GM IVP (18:04)
[2020-01-04] MEDS: heparin drip 25,000 UNIT/500 ML PREMIX 22 UNIT IV (18:15)
--- NOTE | 2020-01-04 18:41 | PC.NURSE ---
Shift summary.: Pt has remains sedated and on vent throughout day. He has required 100% FIO2. He was started on paralytics around 1430, then place in prone position. Since paralytics started, pt has remained one on one care/observation with train of 4 checks and BIS monitoring. His heart rhythm has been paced ( permanent pacemaker) part of the day, sinus tachy mostly. Highest heart rate 150, treated with metoprolol 2.5 mg IV. He remains on a heparin gtt, one rate adjustment needed this shift per protocol. He had an elevated potassium of 5.6, after proning and paralytic. He received 10mg of calcium gluconate and 10 units of insulin. Lung sounds remain very coarse throughout the day. Optifoam dressing placed bilat knees to protect from pressure injury. He has had 950ml of clear yellow urine output. Per Dr Butler has been updated on pt's condition 3 times today.
--- NOTE | 2020-01-04 19:23 | PC.NURSE ---
Report given to COLLEEN Martin.
[2020-01-04 20:15] LABS: Glucose Point of Care 249 mg/dL (70-110)
[2020-01-04 22:49] LABS: Partial Thromboplastin Time 86.5 SECONDS (23.9-36.7)
[2020-01-05] VITALS (109 sets, daily range): BP systolic 120–172; BP diastolic 59–95; PULSE 58–134; RESP 12–22; TEMP 34.6–37.1; O2SAT 87–98
[2020-01-05] MEDS: FUROsemide 10 mg/mL SDV 2mL 20 MG IVP (02:00)
[2020-01-05] MEDS: piperacillin-tazobactam 3.375 GM in sodium chloride 0.9% (plus) 50 ML IV ×3 (02:36→18:00)
[2020-01-05] MEDS: ipratropium-albuterol 3 mL Neb INHALATION ×5 (03:43→23:59)
[2020-01-05 04:13] LABS: ABG PCO2 51.7 mmHg (35-45); ABG PH Result 7.34 (7.35-7.45); Base Excess ABG 0.8 mmol/L (-2.0-2.0); Blood Gas Allen Test Pos; Blood Gas Operator Identificat JB; Blood Gas Sample Site Radial, right; Blood Gas Sample Type Arterial; HCO3 ABG 27.6 mmol/L (22-26); Oxygen Device VENT; PO2 ABG 78.7 mmHg (80.0-100.0)
[2020-01-05 05:44] LABS: Basophils % 0.1 %; Hemoglobin 12.1 g/dL (11.7-16.6); Lymphocytes # 0.1 10^3/uL (0.8-4.8); Lymphocytes % 1.5 %; Mean Corpuscular HGB Conc 31.8 g/dL (30.0-36.0); Mean Corpuscular Hemoglobin 31.7 pg (28.0-34.0); Mean Corpuscular Volume 99.5 fL (80-94); Monocytes # 0.3 10^3/uL (0.2-0.9); Monocytes % 4.6 %; Neutrophils % 91.7 %; Nucleated Red Blood Cells % 0 %; Platelet Count 206 10^3/cmm (130-400); Red Blood Count 3.82 10^6/uL (4.1-5.3); Red Cell Distribution Width 13.6 % (12.1-15.1); White Blood Count 6.8 10^3/uL (4.0-10.0)
[2020-01-05 06:23] LABS: Alanine Aminotransferase 30 U/L (0-41); Albumin Level 2.7 g/dL (3.5-5.2); Alkaline Phosphatase 59 IU/L (40-130); Anion Gap 12.4 (5-19); Aspartate Amino Transferase 31 U/L (0-40); Blood Urea Nitrogen 39 mg/dL (8-23); Calcium 8.6 mg/dL (8.5-10.5); Carbon Dioxide 27 mmol/L (22-29); Chloride 107 mmol/L (98-107); Creatinine Clr Calc Pharmacy 68.5696; Globulin 3.2 g/dL (1.3-4.6); Glomerular Filtration Rate 66.2 mL/min (90-130); Glucose 289 mg/dL (65-115); Osmolality Calculated 312 mOsm/kg (285-295); Potassium 5.4 mmol/L (3.5-5.1); Sodium 141 mmol/L (136-145); Total Bilirubin 0.5 mg/dL (0.15-1.2); Total Protein 5.9 g/dL (6.6-8.7)
--- NOTE | 2020-01-05 06:56 | PC.NURSE ---
Pt prone upon entering room. Dr. Evans stopped in before she left and states she wante BIS 40-60 and pt to be prone all night . VSS although he had tall T waves. Day RN stated K of 5.4 and he was treated for it. Pt total assist due to sedation/paralysis. T&R by staff q 2 hrs. Given bath and had linens changed last evening d/t fecal incont. Has been inc numerous times of sm to mod amts loose, brown stool and eunice care done. Muniz patent and draining clear, light yellow urine without diff. PTT last night was elevated and decreased per order. K was drawn at that time and was 6. Voalted Dr. Mendoza and received orders for 20 IV Lasix--good urine output observed afterward and K back to 5.4 this AM. Train of 4 done q 1 hr. Had a diff time on wrist but achieved 2-4 twitches at brow. Pt at one point was moving arms slightly and picking up his head so vec was increased up to 0.4; propofol was increased up to 20 with good results. AM labs done at 0510 when PTT was due. No results as of the writing of this note. Had called lab and Spoke to Cristine who stated they were having problems with the coagulation machines . Report given Renae MACIAS and she is aware of pending PTT results. Pt remains prone and resting quietly.
[2020-01-05 07:10] LABS: Ferritin 2368 ng/mL (30-400); Lactate Dehydrogenase 488 U/L (135-225)
[2020-01-05] MEDS: budesonide 0.5 mg/2 mL Neb 0.25 MG INHALATION ×2 (07:18→20:44)
[2020-01-05 07:19] LABS: Partial Thromboplastin Time 90.4 SECONDS (23.9-36.7)
[2020-01-05 07:56] LABS: Fibrinogen 608 mg/dL (174-498)
[2020-01-05] MEDS: heparin drip 25,000 UNIT/500 ML PREMIX 18 UNIT IV (08:29)
[2020-01-05] MEDS: dexmedetomidine 400 MCG in sodium chloride 0.9% (100 ml) 100 ML 16.5 MCG IV (08:30)
[2020-01-05] MEDS: aspirin 81 mg EC Tablet PO (08:31)
[2020-01-05] MEDS: artificial tears Op Soln 15 mL Btl 1 DROP EYE-BOTH ×2 (08:31→17:57)
[2020-01-05] MEDS: propofol 1,000 MG/100 ML INJ 10.9 MG IV (08:31)
[2020-01-05] MEDS: calcium carbonate 500 mg Chew Tablet PO ×2 (08:31→17:53)
[2020-01-05] MEDS: allopurinol 300 mg Tablet PO (08:31)
[2020-01-05] MEDS: atorvastatin 40 mg Tablet 20 MG PO (08:31)
[2020-01-05] MEDS: calcium carb-vit d 600mg/400unit 1 Tablet 1 EACH PO (08:32)
--- NOTE | 2020-01-05 08:35 | PC.NURSE ---
When came into patients room, Kaushal was only at 0.4mcg. And patient was not paralyzed. 4/4 TOF twitches. Per [facility] protocol titrate 4-16mcg/kg/min. Patient weight 89.5kg per 0730am. I looked over pump and it was set for the drug Vecoronium which is not the drug that is spiked and running into patient's IV. Therefore, calculations were incorrect. And probably why patient was not paralyzed. The settings on the pump do not have rocoronium so i did a basic mode with protocol from [facility]. Verified with another RN Renae Canchola and notified MD Hairston. Will continue to monitor.
--- NOTE | 2020-01-05 09:51 | PC.NURSE ---
Dr Polk in room. Stated he wanted paralytic Rocoronium decreased and stopped until time to prone patient in 8 hours. I was worried patient may not be sedated enough, but stated to try to wean precedex and titrate up on propofol as needed and call him if patient needs more sedation and he will add versed or 'something'. Will continue to monitor patient closely.
--- NOTE | 2020-01-05 10:13 | PC.NURSE ---
Temperature rectally 94.3. Bear hugger placed. MD Jo aware.
--- NOTE | 2020-01-05 10:14 | NUR.SHIFT ---
Patient is on paralytic/sedation. Unable to complete neuro exam.
--- NOTE | 2020-01-05 10:36 | PC.NURSE ---
Patient proned for 16hours. Patient now supine at 0930. MD aware and placed order for 16prone/8 supine.
[2020-01-05 11:54] LABS: Glucose Point of Care 256 mg/dL (70-110)
[2020-01-05] MEDS: dexamethasone 4 mg/mL INJ 6 MG IVP (12:38)
--- NOTE | 2020-01-05 12:56 | P.PN_ITS ---
Subjective Subjective: Interval history: Intubated, sedated. Vitals/I&O/Wt Last Vital Signs Temp 94.2 F L 01/05/20 10:30 Pulse 60 01/05/20 12:15 Resp 14 01/05/20 11:44 BP 120/61 01/05/20 12:15 Pulse Ox 94 01/05/20 12:15 01/04/20 01/05/20 01/05/20 22:59 06:59 14:59 Intake Total 672.894 / 2212.241 315.954 / 2528.195 838.346 / 838.346 Output Total 900 / 1500 1400 / 2900 650 / 650 Balance -227.106 / 712.241 -1084.046 / -371.805 188.346 / 188.346 Weight last 48 hrs Weight 86.545 kg Weight 91.354 kg Physical Exam Const: COMMON NORMALS: no acute distress HENMT: COMMON NORMALS: oropharynx normal Neck/C-Spine: COMMON NORMALS: no JVD Resp: COMMON NORMALS: normal respiratory effort and clear to auscultation bilaterally AUSCULTATION: clear to auscultation bilaterally Cardio: COMMON NORMALS: no JVD, regular rhythm, S1 normal heart sound present, S2 normal heart sound present and No murmurs present (Cardio) RHYTHM: regular rhythm HEART SOUNDS: S1 normal heart sound present and S2 normal heart sound present GI: COMMON NORMALS: Normal to inspection, nondistended, normoactive bowel sounds present, Soft to palpation and non-tender PALPATION: Yes Soft to palpation Extremity: COMMON NORMALS: no joint enlargement and no pedal edema Neuro: COMMON NORMALS: moves all extremities Skin: COMMON NORMALS: no rashes or lesions noted GENERAL SKIN EXAM: no rashes or lesions noted Urinary Catheter Management^: Muniz: Cath Placed During This Visit: yes Reason for Continuing Indwelling Catheter: Accurate Measurement of Urinary Output in Critically Ill Patients Urinary Catheter Date of Insertion: 12/27/19 Urinary Catheter Time of Insertion: 17:59 Data : 01/05/20 05:10 01/05/20 05:10 A&P Assessment and plan (1) Respiratory failure with hypoxia: Continued severe COVID 19 PNA and hypoxic respiratory failure. This morning ventilatory settings with FiO2 of 70%, PEEP of 12. Was proned overnight. This morning BIS somewhat above 60. It seems the pump for the paralytic was not set to the correct medication and appears he received lower dose. At this time we will try to wean down paralytic, previously weaning trials unsuccessful due to desaturation. We will try to wean down Precedex. Continues on propofol, fentanyl. Requesting additional assessment by pulmonology as he remains intubated since 12/26. Renal function has been gradually improving. He overall him he does not appear to be fluid overloaded at this time. We will hold off on diuresis for now. D- dimer appears to be stable. Continues empirically on heparin drip at this time. If renal function remains stable, consider switching over to Lovenox. At this time continues on additional course of remdesivir, Decadron. At this time is not requiring any pressor. Continue daily attempts to wean sedation. Perhaps consideration may need to be given to tracheostomy. We will await additional evaluation by pulmonology. On empiric antibiotic coverage with Zosyn, vancomycin, azithromycin. MRSA PCR was negative, no growth on sputum culture. Will hold additional vancomycin. Assess TTE. Discussed with his . -s/p 5 days of remdesivir (12/30) -sputum cx; mixed khloe, gram stain polymicrobial Due to initial concern for fluid overloaded, required some diuresis. Now off due to renal impairment. Appears euvolemic. Status: Acute Qualifiers: Chronicity: acute Qualified Code(s): J96.01 - Acute respiratory failure with hypoxia (2) Acute respiratory distress syndrome (ARDS) due to 2019-nCoV: As above. Status: Acute (3) Pneumonia due to COVID-19 virus: Severe COVID-19 pneumonia with hypoxic respiratory failure. As above. -Not oxygen dependent at baseline Status: Acute (4) CKD (chronic kidney disease): Improved. Appears to be close to baseline. -JULIA on CKD stage 2 -Baseline creatinine appears to be around 1 His cardiology clinical nurse specialist is Dr Christina Mehta, [facility] in [place] Status: Acute Qualifiers: Chronic kidney disease stage: stage 2 (mild) Qualified Code(s): N18.2 - Chronic kidney disease, stage 2 (mild) (5) Seropositive rheumatoid arthritis of multiple joints: -Follows up with Dr. Macias -Is on chronic steroids and Xeljanz; has had difficulty tolerating alternative treatment Status: Chronic Additional A&P Information -History of combined systolic and diastolic CHF; s/p pacemaker, defibrillator; f/u with cardiology. Echo (2018): EF=31%, G1DD, global LV hypokinesis, mild MR, trace AR, mild TR, trace SD. Assess TTE. Followed with Dr Anthony Torres, cardiology, [place]. -hx of gout -hx of iron deficiency anemia; H/H stable -prior hx of Erlichiosis with sepsis and multi-organ failure -Low rate tube feeds, held while prone -GI ppx with PPI -Dispo: home -Code status: FULL code -guarded prognosis given continued vent support, ARDS Attestations Medical Necessity Statement*: Continue admission for assessment management of severe COVID-19 pneumonia, ARDS, hypoxic respiratory failure. 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
--- NOTE | 2020-01-05 13:22 | USCV_ITS ---
[facility] Age: 69 Gender: M : 1950 Exam Date: 01/05/2020 16:03 Ordering Phys: Kirk Almanza MD Technologist: Jacqueline Vega [place] [facility] [place]: hypoxia, CHF BP: 134 / 69 HR: 59 Rhythm: Sinus Technical Quality: Adequate MEASUREMENTS (Male / Female) Normal Values 2D ECHO LV Diastolic Diameter PLAX 4.0 cm 4.2 - 5.9 / 3.9 - 5.3 cm LV Systolic Diameter PLAX 2.9 cm LV Chamber Size 4.3 cm IVS Diastolic Thickness 1.8 cm 0.6 - 1.0 / 0.6 - 0.9 cm IVS Systolic Thickness 1.8 cm LVPW Diastolic Thickness 1.4 cm 0.6 - 1.0 / 0.6 - 0.9 cm LVPW Systolic Thickness 1.7 cm RV Chamber Size 2.4 cm LVOT Diameter 2.0 cm LV Ejection Fraction 2D Teich 53.6 % LA Diameter 3.0 cm LA Width 2.6 cm LA Height 4.7 cm RA Width 4.0 cm RA Height 4.8 cm Aorta at Sinotubular Diameter 3.1 cm M-MODE LV Diastolic Diameter MM 4.7 cm 4.2 - 5.9 / 3.9 - 5.3 cm LV Systolic Diameter MM 2.7 cm LV Ejection Fraction MM Teich 72.7 % IVS Diastolic Thickness MM 1.4 cm 0.6 - 1.0 / 0.6 - 0.9 cm IVS Systolic Thickness MM 1.8 cm LVPW Diastolic Thickness MM 0.9 cm 0.6 - 1.0 / 0.6 - 0.9 cm LVPW Systolic Thickness MM 1.6 cm RV Diastolic Diameter MM 2.4 cm Aortic Annulus Diameter 3.4 cm LA Ao Ratio MM 0.9 MV E Point Septal Separation 1.1 cm DOPPLER AV Peak Velocity 188.0 cm/s LVOT Peak Velocity 77.0 cm/s AV Area Cont Eq vti 1.5 cm squared AV Area Cont Eq pk 1.2 cm squared MV Area PHT 2.9 cm squared Mitral E to A Ratio 0.9 MV E' Velocity 43.0 cm/s Mitral E to MV E' Ratio 14.7 Mitral E to LV E' Lateral Ratio 11.5 Mitral E to LV E' Septal Ratio 20.3 TR Peak Velocity 211.9 cm/s TR Peak Gradient 18.0 mmHg TR Mean Velocity 140.2 cm/s TR Mean Gradient 9.9 mmHg TR Velocity Time Integral 43.2 cm TV Peak E Velocity 53.0 cm/s Right Atrial Pressure 15.0 mmHg Pulmonary Artery Systolic Pressu 33.0 mmHg PV Peak Velocity 76.0 cm/s RV Acceleration Time 0.1 s RV Ejection Time 0.4 s RV AcT/ET 0.3 FINDINGS Left Ventricle Normal LV size with a slightly tender ejection fraction 50%. Diffuse hypokinesia of the septum.Grade I/IV diastolic dysfunction (abnormal relaxation filling pattern), normal to mildly elevated filling pressures. Right Ventricle Pacemaker/defibrillator wire is noted Right Atrium Pacemaker/defibrillator wire is noted Left Atrium The left atrium is normal in size. Mitral Valve Structurally normal mitral valve without significant stenosis or prolapse. There is no mitral regurgitation. Aortic Valve Thickened aortic valve. Tricuspid Valve Trace tricuspid valve regurgitation. Pulmonic Valve Pulmonic valve not well visualized. Pericardium Trivial pericardial effusion. Aorta Normal ascending aorta dimension. CONCLUSIONS Normal LV size with a slightly tender ejection fraction 50%. Diffuse hypokinesia of the septum.Grade I/IV diastolic dysfunction (abnormal relaxation filling pattern), normal to mildly elevated filling pressures. Thickened aortic valve. There is no pericardial effusion. Trace tricuspid valve regurgitation. There are no intracardiac masses. Pacemaker/defibrillator wire is noted Compared to the study from 03/19/2017, there is significant improvement of the LV ejection fraction Dr Jim Hubbard MD [facility] (Electronically Signed) Final Date: 05 January 2020 21:50 S
[2020-01-05 14:06] LABS: Partial Thromboplastin Time 79.1 SECONDS (23.9-36.7)
[2020-01-05] MEDS: propofol 1,000 MG/100 ML INJ 16.3 MG IV (14:33)
--- NOTE | 2020-01-05 15:02 | PC.RESP ---
Vent setting changes were made by DR. Gonzalez.
--- NOTE | 2020-01-05 15:14 | PM.CONSULT ---
Providers/Reason For Consult Consulting Physican/Specialty*: Pulmonary and critical care medicine Reason for Consult*: Severe COVID-19 pneumonia Attending Physician: Kirk Almanza Primary Care Provider: Sebas Mojica Jr, MD History of Present Illness History of Present Illness Moses Joseph is a 69 year old male with a past medical history of rheumatoid arthritis on immunosuppressive medication prior to presenting to the hospital, chronic kidney disease, gout and cardiomyopathy with an ejection fraction of 30% who presented to the hospital on December 26 with worsening shortness of breath of 3 to 4 days duration. The patient was hypoxic. Initially he was tried on high flow nasal cannula and subsequently intubated. The initial chest x-ray revealed bilateral infiltrate right greater than left. This was followed by CT scan of the chest which revealed bilateral diffuse groundglass opacities in addition to consolidative changes in bilateral lower lobes. The patient had been intubated since December 26. He was treated with broad-spectrum antibiotics including vancomycin, Zosyn and azithromycin. The patient had also received remdesivir, dexamethasone and full dose anticoagulation. He was diuresed intermittently. The patient initially had JULIA which has resolved. Overnight, the patient was noted to be desaturating and was prone and paralyzed. Currently the patient is supine. He is sedated with propofol, fentanyl and dexmedetomidine. Currently the patient is on pressure control ventilation with IPAP of 12 with a PEEP of 12 and FiO2 of 60%. His last blood gas obtained this morning revealed a pH of 7.34 with PCO2 of 51.7 and PO2 of 78.7 on 70% oxygen. His chest x-ray obtained yesterday revealed improvement compared to the first chest x-ray however there was bilateral lower lobe interstitial infiltrate. And consolidation in the left lower lobe. Patient is afebrile does not have any leukocytosis. Microbiologic work-up is negative so far. The nasal MRSA PCR on December 28 was negative. I had performed a bedside ultrasound. The patient has bilateral B-lines. Ejection fraction is about 40%. There is left ventricular hypertrophy. IVC is not significantly dilated. Review of Systems Narrative: Unable to obtain Meds/Allergies Home Medications and Allergies Home Medications Medication Instructions Recorded Confirmed Last Taken Type allopurinol 300 mg tablet 300 mg PO DAILY 04/08/19 12/27/19 Unknown History aspirin 81 mg tablet,delayed 81 mg PO DAILY 04/08/19 12/27/19 Unknown History release bumetanide 1 mg tablet 1 mg PO BID 04/08/19 12/27/19 Unknown History calcitriol 0.25 mcg capsule 0.25 mcg PO DAILY cap 04/08/19 12/27/19 Unknown History carvedilol 6.25 mg tablet 6.25 mg PO BID 04/08/19 12/27/19 Unknown History diphenhydramine HCl 25 mg capsule 25 mg PO BEDTIME PRN cap 04/08/19 12/27/19 Unknown History ferrous sulfate 325 mg (65 mg 325 mg PO BID 04/08/19 12/27/19 Unknown History iron) tablet fluvastatin 40 mg capsule 40 mg PO BID 04/08/19 12/27/19 Unknown History glucosamine sulfate 2KCl 1,000 mg 1,000 mg PO BID PRN 04/08/19 12/27/19 Unknown History tablet gabapentin 300 mg capsule See Rx Instructions PO .COMPLEX 10/06/19 12/27/19 Unknown Rx #60 cap prednisone 10 mg tablet See Rx Instructions PO .COMPLEX 10/06/19 12/27/19 Unknown Rx PRN #30 tab tofacitinib 5 mg tablet 5 mg PO DAILY #30 tab 10/06/19 12/27/19 Unknown Rx Calcium 600 + D(3) 1 tab PO DAILY 12/27/19 12/27/19 Unknown History acetaminophen [Tylenol Extra 1,000 mg PO PRN 12/27/19 12/27/19 Unknown History Strength] Allergies Allergy/AdvReac Type Severity Reaction Status Date / Time leflunomide [From Arava] Allergy Intermediate rash Verified 12/27/19 13:45 Current Medications Current Medications Generic Name Dose Route Start Last Admin Trade Name Freq PRN Reason Stop Dose Admin Albuterol/Ipratropium 3 ml 12/28/19 00:04 01/05/20 07:18 Duoneb INHALATION 3 ml Q4H PRN Administration SHORTNESS OF BREATH Allopurinol 300 mg 12/28/19 09:00 01/05/20 08:31 Zyloprim PO 300 mg DAILY SONAM Administration Artificial Tears 1 drop 01/01/20 18:00 01/05/20 08:31 Isopto Tears EYE-BOTH 1 drop BID SONAM Administration Aspirin 81 mg 12/28/19 09:00 01/05/20 08:31 Aspirin Ec PO 81 mg DAILY SONAM Administration Atorvastatin Calcium 20 mg 12/28/19 09:00 01/05/20 08:31 Lipitor PO 20 mg DAILY SONAM Administration Bisacodyl 10 mg 12/27/19 14:38 01/04/20 06:29 Dulcolax PO 10 mg DAILY PRN Administration CONSTIPATION Budesonide 0.25 mg 12/28/19 08:00 01/05/20 07:18 Pulmicort INHALATION 0.25 mg BID.RESPIRATORY SONAM Administration Calcium Carbonate 1 each 12/28/19 09:00 01/05/20 08:32 Oyster Shell 600mg-Vit D 400unit PO 1 each DAILY SONAM Administration Calcium Carbonate 500 mg 12/31/19 09:00 01/05/20 08:31 Tums PO 500 mg BID SONAM Administration Dexamethasone 6 mg 12/28/19 12:00 01/05/20 12:38 Decadron IVP 6 mg Q24H SONAM Administration Azithromycin 500 mg/ Sodium 250 mls @ 250 mls/hr 12/27/19 16:30 01/04/20 17:10 Chloride IV Infused Q24H SONAM Infusion Protocol Heparin Sodium/Sodium Chloride 25,000 unit in 500 mls @ 25.401 mls/hr 12/27/19 15:00 01/05/20 08:29 Heparin Drip IV 7.72 unit/kg/hr .[id number] SONAM 14 mls/hr Infusion 14 UNIT/KG/HR Propofol 1,000 mg in 100 mls @ 0 mls/hr 12/27/19 17:30 01/05/20 14:33 Diprivan IV 30 mcg/kg/min .Q0M SONAM 16.3 mls/hr Administration Protocol Per Protocol Dexmedetomidine HCl 400 mcg/ 104 mls @ 0 mls/hr 12/27/19 18:00 01/05/20 13:28 Sodium Chloride IV 0.3 mcg/kg/hr .Q0M SONAM 7.1 mls/hr Titration Protocol Per Protocol Piperacillin Sod/Tazobactam 50 mls @ 12.5 mls/hr 12/27/19 19:00 01/05/20 10:43 Sod 3.375 gm/ Sodium Chloride IV 12.5 mls/hr Q8H SONAM Administration Protocol Norepinephrine Bitartrate 4 mg 254 mls @ 0 mls/hr 12/27/19 23:00 12/28/19 13:00 / Dextrose IV 0 mcg/min .Q0M SONAM 0 mls/hr Titration Protocol Per Protocol remdesivir (EUA) 100 mg/ 100 mls @ 100 mls/hr 01/04/20 12:00 01/05/20 13:28 Sodium Chloride IV 01/08/20 12:59 Infused Q24H SONAM Infusion Rocuronium Mchenry 100 mg/ 100 mls @ 0 mls/hr 01/04/20 12:00 01/05/20 13:28 Sodium Chloride IV 0 mls/hr Q0M SONAM Infusion As Directed Fentanyl 1,000 mcg/ Sodium 100 mls @ 0 mls/hr 01/05/20 01:15 01/05/20 04:54 Chloride IV 100 mcg/hr .Q0M SONAM 10 mls/hr Administration Protocol Per Protocol Insulin Aspart 0 unit 01/05/20 12:30 01/05/20 12:42 Novolog SUBCUT 6 unit Q6H SONAM Administration Protocol Morphine Sulfate 2 mg 12/27/19 14:38 12/30/19 17:45 Morphine IVP 2 mg Q4H PRN Administration SEVERE PAIN Pantoprazole Sodium 40 mg 12/27/19 16:00 01/04/20 15:42 Protonix IVP 40 mg Q24H SONAM Administration PFSH Acute PFSH: Medical History CKD (chronic kidney disease) Gout High risk medication use Immunization counseling Immunosuppression Iron deficiency anemia Seropositive rheumatoid arthritis of multiple joints Surgical History History of tonsillectomy Hx of appendectomy Family History Other Cancer Hypertension Denies family history of Rheumatoid arthritis Diabetes Systemic lupus erythematosus (SLE) in adult Social History Smoking and tobacco status: former smoker Quit status (tobacco): has quit using tobacco Year quit tobacco: 1970 Alcohol intake: never Lives independently: No Household members: spouse Marital status: History of recent travel: No Vitals/I&O/Wt Last Vital Signs Temp 97.0 F L 01/05/20 12:30 Pulse 60 01/05/20 13:15 Resp 18 01/05/20 15:03 BP 126/60 01/05/20 13:15 Pulse Ox 93 01/05/20 13:15 01/05/20 01/05/20 01/05/20 06:59 14:59 22:59 Intake Total 315.954 / 2528.195 1014.846 / 1014.846 Output Total 1400 / 2900 650 / 650 Balance -1084.046 / -371.805 364.846 / 364.846 Weight last 48 hrs Weight 190 lb 12.8 oz Weight 201 lb 6.4 oz Physical Exam Narrative: EXAM NARRATIVE: General: Patient is intubated and sedated Neck: No JVD Respiratory: Auscultation: Crackles at the posterior lung, no wheezing or rhonchi Cardiovascular: Regular rate and rhythm, S1-S2 present, no murmur, no peripheral edema Abdomen: Soft, mildly distended from obesity, positive bowel sound, unable to assess tenderness Skin: No rash Neuro: Patient is sedated, unable to assess mental status Urinary Catheter Management^: Muniz: Cath Placed During This Visit: yes Reason for Continuing Indwelling Catheter: Accurate Measurement of Urinary Output in Critically Ill Patients Urinary Catheter Date of Insertion: 12/27/19 Urinary Catheter Time of Insertion: 17:59 Data Other Data: Attestation for Other Data: I personally reviewed and interpreted the following: Other data: I have reviewed the patient's radiology, microbiologic and laboratory data. Please see my HPI for detail A&P Assessment and plan (1) Acute respiratory distress syndrome (ARDS) due to 2019-nCoV: The patient has severe COVID-19 pneumonia. The patient has received remdesivir for 5 days which can be stopped. Remdesivir has not shown any mortality benefit. Especially in critically ill patients. The patient should continue with 6 mg of dexamethasone on a daily basis. The patient is on anticoagulation which is also shown to reduce mortality in patients were intubated with COVID-19 pneumonia. One of the most important thing in this patient's care is going to be making sure that he is not getting volume overloaded. The patient has a history of reduced ejection fraction and a strict input and output needs to be measured and diuresed adequately to make sure the patient is on the skein drier side. I have put the patient on volume control mechanical ventilation. Interestingly, his lung compliance is fairly good. The increased space from endothelialitis and microembolus in the pulmonary vasculature is likely responsible for the patient's hypoxia. The anticoagulation will help. The patient is now on a tidal volume of 500, PEEP of 8, FiO2 of 55% and respiratory rate of 18. The PEEP of 8 provided the best lung compliance. The patient is currently on azithromycin and Zosyn. The azithromycin can be discontinued. We can continue the Zosyn for the time being. The patient was on vancomycin till recently. We will obtain an endotracheal aspirate culture and decide whether the patient needs any further antibiotic therapy. The steroid does increase the risk of superimposed fungal infection. This would include aspergillosis. If the patient starts having worsening radiologic infiltrate and worsening oxygen requirement, we will check for very glucan and serum galactomannan levels. There is no necessity to paralyze or prone this patient currently. It is expected that he is going to take some time before he makes respiratory recovery. Overall, his chest x-ray looks better than before. The bilateral lower lobe infiltrates could easily be from atelectasis/increased pulmonary edema. The patient does not have a fever no leukocytosis no definitive proof of a developing secondary pneumonia. Status: Acute (2) Seropositive rheumatoid arthritis of multiple joints: The patient used to be on immunosuppressive medications including corticosteroid. He is at high risk for having worse outcome. Status: Chronic (3) Acute kidney injury superimposed on CKD: The JULIA has resolved. The patient is currently on Pulmocare as to feed. The patient needs 30 kcal/kg of ideal body weight nutrition. The patient is currently receiving 30mL/h to feed will increase up to 45 mL if he tolerates it. This will provide him with 1620 kcal/day. The patient will also receive free water flush to 50 mL every 6 hours. Thank you for the consultation. The patient currently needs supportive care making sure he is not fluid overloaded and does not have a secondary infection which does not seem to be the case currently. Status: Acute Coding Level of Care Code Acute Health Services Administrator for Curly Franz Diagnoses Acute respiratory distress syndrome (ARDS) due to 2019-nCoV U07.1; J80 Seropositive rheumatoid arthritis of multiple joints M05.79 Acute kidney injury superimposed on CKD N17.9; N18.9
[2020-01-05] MEDS: pantoprazole 40 mg SDV IVP (15:25)
[2020-01-05] MEDS: lanolin oint 7 gm 1 APPLIC TOPICAL (16:34)
--- NOTE | 2020-01-05 17:14 | DCPLANNER ---
Pg 2 of IM updated and reviewed with Pt.s Spouse Lakeshia via the phone - [phone]. No questions.
--- NOTE | 2020-01-05 17:33 | PC.NURSE ---
Attempted sedation vacation per MD, but patient became tachypnic, desatted 86-88%, and restless. Patient did open eyes and BOO, but very weak and would not follow commands.
[2020-01-05 17:50] LABS: Glucose Point of Care 237 mg/dL (70-110)
[2020-01-05 21:32] LABS: Partial Thromboplastin Time 43.6 SECONDS (23.9-36.7)
[2020-01-06] VITALS (110 sets, daily range): BP systolic 103–161; BP diastolic 54–89; PULSE 60–155; RESP 8–28; TEMP 36.7–37.4; O2SAT 82–100
[2020-01-06 00:12] LABS: Glucose Point of Care 229 mg/dL (70-110)
[2020-01-06] MEDS: piperacillin-tazobactam 3.375 GM in sodium chloride 0.9% (plus) 50 ML IV (03:55)
[2020-01-06 04:04] LABS: Basophils % 0.1 %; Hematocrit 35.6 % (42.0-52.0); Hemoglobin 11.5 g/dL (11.7-16.6); Lymphocytes # 0.2 10^3/uL (0.8-4.8); Lymphocytes % 1.6 %; Mean Corpuscular HGB Conc 32.3 g/dL (30.0-36.0); Mean Corpuscular Hemoglobin 32.1 pg (28.0-34.0); Mean Corpuscular Volume 99.4 fL (80-94); Mean Platelet Volume 11.8 fL (7.4-10.4); Monocytes # 0.5 10^3/uL (0.2-0.9); Monocytes % 4.9 %; Neutrophils # 9.96 10^3/uL (1.8-7.7); Neutrophils % 91.1 %; Nucleated Red Blood Cells % 0 %; Platelet Count 221 10^3/cmm (130-400); Red Blood Count 3.58 10^6/uL (4.1-5.3); Red Cell Distribution Width 13.8 % (12.1-15.1); White Blood Count 10.9 10^3/uL (4.0-10.0)
[2020-01-06] MEDS: ipratropium-albuterol 3 mL Neb INHALATION ×5 (04:40→21:31)
[2020-01-06 04:47] LABS: Alanine Aminotransferase 31 U/L (0-41); Albumin Level 2.4 g/dL (3.5-5.2); Alkaline Phosphatase 56 IU/L (40-130); Anion Gap 10.3 (5-19); Aspartate Amino Transferase 37 U/L (0-40); Blood Urea Nitrogen 41 mg/dL (8-23); Calcium 8.1 mg/dL (8.5-10.5); Carbon Dioxide 27 mmol/L (22-29); Chloride 110 mmol/L (98-107); Glomerular Filtration Rate 59.9 mL/min (90-130); Glucose 299 mg/dL (65-115); Osmolality Calculated 315 mOsm/kg (285-295); Potassium 5.3 mmol/L (3.5-5.1); Sodium 142 mmol/L (136-145); Total Bilirubin 0.4 mg/dL (0.15-1.2); Total Protein 5.4 g/dL (6.6-8.7); Triglycerides 150 mg/dL (0-150)
[2020-01-06 05:02] LABS: D Dimer 1.61 ug/mIFEU (0-0.59)
[2020-01-06] MEDS: dexmedetomidine 400 MCG in sodium chloride 0.9% (100 ml) 100 ML 7.1 MCG IV (05:03)
[2020-01-06 05:20] LABS: Partial Thromboplastin Time 56.8 SECONDS (23.9-36.7)
--- NOTE | 2020-01-06 06:00 | XR_ITS ---
WS: [id number] Portable AP semiupright chest, 01/06/2020 Clinical Data: Hypoxia Comparison: Portable chest, 01/04/2020. Findings: The patient has a poor inspiratory effort but the lower lobe opacities may have increased. The heart is enlarged. The endotracheal tube and nasogastric tube remain in position. The pacemaker r emains in position. There are monitor leads on the chest wall. XR/XR chest 1V portable [id number] Impression: 1. Possible worsening of bilateral lower lobe opacities. 2. Cardiomegaly.
[2020-01-06 06:18] LABS: Glucose Point of Care 261 mg/dL (70-110)
[2020-01-06] MEDS: dextrose 50% syringe 50 mL IVP (06:19)
--- NOTE | 2020-01-06 07:12 | PC.NURSE ---
Pt has spot movements of extremities but nothing to command. K still elevated this AM. Dr Portillo ordered 10 units Novolog SQ and an amp of D50, both x1 and recheck K level an hour after. Pt agitated after having CXR done. RN assisted RT with re-securing ETT. Pt's sats dropped into low 80s and stayed there at 82%. Propofol increased to 50 mcg. Did not increase Precedex as Dr Alamnza wanted to try to get him off it. Already maxed on fentanyl. Pt unable to recover at 55% FiO2. Called Dr Gonzalez shortly after 0700 and he was updated. He ordered increase in FiO2 to 65% and stated that he would be around soon . Report given to Heavenly MACIAS.
--- NOTE | 2020-01-06 07:39 | PC.NURSE ---
Propofol was documented as infused. But it is not completed. Still running at 30. MD Prince stated propofol maxed at 50, Fentanyl 100mcg, and precedex is at 0.3, but MD wants that at lowest right now and ordered a versed drip to be started now. aware of 02 settings change to 65% per Dr Gonzalez.
[2020-01-06] MEDS: heparin drip 25,000 UNIT/500 ML PREMIX 16 UNIT IV (07:46)
[2020-01-06] MEDS: budesonide 0.5 mg/2 mL Neb 0.25 MG INHALATION ×2 (08:14→21:30)
[2020-01-06 09:05] LABS: Partial Thromboplastin Time 53.6 SECONDS (23.9-36.7)
[2020-01-06 09:09] LABS: Potassium 5.4 mmol/L (3.5-5.1)
[2020-01-06] MEDS: lanolin oint 7 gm 1 APPLIC TOPICAL ×2 (09:33→16:17)
[2020-01-06] MEDS: atorvastatin 40 mg Tablet 20 MG PO (09:33)
[2020-01-06] MEDS: calcium carb-vit d 600mg/400unit 1 Tablet 1 EACH PO (09:33)
[2020-01-06] MEDS: allopurinol 300 mg Tablet PO (09:33)
[2020-01-06] MEDS: artificial tears Op Soln 15 mL Btl 1 DROP EYE-BOTH ×2 (09:33→17:11)
[2020-01-06] MEDS: propofol 1,000 MG/100 ML INJ 21.8 MG IV ×3 (09:39→19:30)
[2020-01-06] MEDS: aspirin 81 mg EC Tablet PO (09:39)
[2020-01-06] MEDS: calcium carbonate 500 mg Chew Tablet PO ×2 (09:39→17:10)
[2020-01-06] MEDS: dexamethasone 4 mg/mL INJ 6 MG IVP (11:12)
[2020-01-06] MEDS: FUROsemide 10 mg/mL SDV 2mL 20 MG IVP (11:12)
--- NOTE | 2020-01-06 11:16 | ECG_ITS ---
[facility] ED Test Date: 2020-01-06 Pat Name: Moses Joseph Department: Room: ICU19 Gender: Male Television Reporter: : 1950 Requested By: Kirk Almanza Order Number: [id number] Villanueva MD: Hoa Martin M.D. Measurements Intervals [place] Rate: 63 P: 50 NM: 157 QRS: -16 QRSD: 97 T: 74 QT: 514 QTc: 528 Interpretive Statements ELECTRONIC VENTRICULAR PACEMAKER ST DEPRESSION, CONSIDER SUBENDOCARDIAL INJURY [0.1+ mV ST DEPRESSION] Compared to ECG 01/03/2020 05:01:56 ST (T wave) deviation now present Myocardial infarct finding now present Electronically Signed On 01-07-2020 22:41:06 LIVESTOCK YARD ATTENDANT by Hoa Martin M.D. [id number]
[2020-01-06] MEDS: linezolid premix 600 MG/300 ML PREMIX 300 MG IV ×2 (11:33→23:29)
[2020-01-06] MEDS: metroNIDAZOLE IV 500 MG/100 ML PREMIX 100 MG IV ×2 (11:34→18:00)
[2020-01-06 12:10] LABS: Glucose Point of Care 338 mg/dL (70-110)
[2020-01-06 14:29] LABS: Partial Thromboplastin Time 67.4 SECONDS (23.9-36.7)
--- NOTE | 2020-01-06 15:10 | PC.NURSE ---
Held sedation (except the precedex) to see if patient would wake up. Patient became very tachypneic within minutes and was 'bucking' the ventilator. RT and RN agreed to turn back on sedation.
--- NOTE | 2020-01-06 15:22 | P.PN_ITS ---
Subjective Subjective: Interval history: Intubated, sedated. Vitals/I&O/Wt Last Vital Signs Temp 98.0 F 01/06/20 12:00 Pulse 81 01/06/20 15:00 Resp 18 01/06/20 13:19 BP 126/63 01/06/20 15:00 Pulse Ox 91 01/06/20 15:00 01/06/20 01/06/20 01/06/20 06:59 14:59 22:59 Intake Total 80.667 / 2472.227 1288.696 / 1288.696 Output Total 550 / 1925 550 / 550 Balance -469.333 / 547.227 738.696 / 738.696 Weight last 48 hrs Weight 86.908 kg Weight 86.545 kg Physical Exam Const: COMMON NORMALS: no acute distress HENMT: COMMON NORMALS: oropharynx normal Neck/C-Spine: COMMON NORMALS: no JVD Resp: COMMON NORMALS: normal respiratory effort AUSCULTATION: diminished lung sounds Cardio: COMMON NORMALS: no JVD, regular rhythm, S1 normal heart sound present, S2 normal heart sound present and No murmurs present (Cardio) RHYTHM: regular rhythm HEART SOUNDS: S1 normal heart sound present and S2 normal heart sound present GI: COMMON NORMALS: Normal to inspection, nondistended, normoactive bowel sounds present, Soft to palpation and non-tender PALPATION: Yes Soft to palpation Extremity: COMMON NORMALS: no joint enlargement and no pedal edema Neuro: COMMON NORMALS: moves all extremities Skin: COMMON NORMALS: no rashes or lesions noted GENERAL SKIN EXAM: no rashes or lesions noted Urinary Catheter Management^: Muniz: Cath Placed During This Visit: yes Reason for Continuing Indwelling Catheter: Accurate Measurement of Urinary Output in Critically Ill Patients Urinary Catheter Date of Insertion: 12/27/19 Urinary Catheter Time of Insertion: 17:59 Data : 01/06/20 03:10 01/06/20 08:15 Micro: Microbiology 01/06/20 08:00 Gram Stain - Final Sputum - Endotracheal Tube Aspirate A&P Assessment and plan (1) Respiratory failure with hypoxia: This morning increased oxygen demand. FiO2 65%. Worsening on chest x- ray. Discussed with respiratory. We will go ahead and try a little bit more aggressive pulmonary toilet, chest PT. Discussed with pulmonology, will also adjust antibiotics to Flagyl, linezolid. Check procalcitonin. Tracheal aspirate cultures were requested. Also requested galactomannan. Pulmonary is concerned about possible fungal infection, and so per discussion, and also discussed with pharmacy will initiate voriconazole. Discussed also with cardiology. QTc is somewhat prolonged. Unfortunately options for antifungal medications are limited. Continued severe COVID 19 PNA and hypoxic respiratory failure. Was somewhat restless this morning so Versed was added. Attempting to wean down Precedex. Continues on propofol, fentanyl. Renal function appears to have plateaued. Per discussion with pulmonology given small dose of Lasix. D-dimer appears to be stable. Continues empirically on heparin drip at this time. We will switch over to Lovenox tonight. At this time continues on additional course of remdesivir, Decadron. At this time is not requiring any pressor. Continue daily attempts to wean sedation. Perhaps consideration may need to be given to tracheostomy. We will await additional evaluation by pulmonology. On empiric antibiotic coverage with Zosyn, vancomycin, azithromycin. MRSA PCR was negative, no growth on sputum culture. Will hold additional vancomycin. Assess TTE. Discussed with pt's . He asked if [id number] could call in as well, told her no problem to call any questions. -s/p 5 days of remdesivir (12/30) -sputum cx; mixed khloe, gram stain polymicrobial Due to initial concern for fluid overloaded, required some diuresis. Now off due to renal impairment. Appears euvolemic. Gerda [phone] Status: Acute Qualifiers: Chronicity: acute Qualified Code(s): J96.01 - Acute respiratory failure with hypoxia (2) Acute respiratory distress syndrome (ARDS) due to 2019-nCoV: As above. Status: Acute (3) Pneumonia due to COVID-19 virus: Severe COVID-19 pneumonia with hypoxic respiratory failure. As above. -Not oxygen dependent at baseline Status: Acute (4) CKD (chronic kidney disease): Improved. Appears to be close to baseline. -JULIA on CKD stage 2 -Baseline creatinine appears to be around [address] His guidance secretary is Dr Christina Mehta, YESSICA [place] in [place] Status: Acute Qualifiers: Chronic kidney disease stage: stage 2 (mild) Qualified Code(s): N18.2 - Chronic kidney disease, stage 2 (mild) (5) Seropositive rheumatoid arthritis of multiple joints: -Follows up with Dr. Macias -Is on chronic steroids and Xeljanz; has had difficulty tolerating alternative treatment Status: Chronic Additional A&P Information -History of combined systolic and diastolic CHF; s/p pacemaker, defibrillator; f/u with cardiology. Echo (2018): EF=31%, G1DD, global LV hypokinesis, mild MR, trace AR, mild TR, trace TN. TTE currently ejection fraction 50%, grade 1 diastolic dysfunction. Discussed with his [id number] per request of his . It is still improved from his prior EF. There is some global hypokinesis as discussed, it is not clear whether this may be still persistent changes from prior illness, or if this is again new or worsening secondary to the virus. Today he is given low-dose of Lasix 20 mg IV x1. We will continue to monitor volume status. Followed with Dr Anthony Torres, cardiology, [place]. Will request cardiac records. QTC prolongation. Status post NUTRITION SERVICES WORKER/PPM. Discussed with cardiology. Diminishing voriconazoleHis [id number]. Will monitor QTC. Appreciate cardiology recommendations. -hx of gout -hx of iron deficiency anemia; H/H stable -prior hx of Erlichiosis with sepsis and multi-organ failure -tube feeds, with water flushes -GI ppx with PPI -Dispo: home -Code status: FULL code -guarded prognosis given continued vent support, ARDS Attestations Medical Necessity Statement*: Continue admission for assessment management of severe COVID-19 pneumonia, superimposed additional infection bacterial or fungal, respiratory failure, requiring ventilatory support, in setting of chronic disease, immune is compromise secondary to rheumatoid arthritis. Coding Level of Care Code Acute 3D Technologist for [facility] Fwd Diagnoses Respiratory failure with hypoxia J96.01 Chronicity: acute Acute respiratory distress syndrome (ARDS) due to 2019-nCoV U07.1; J80 Pneumonia due to COVID-19 virus U07.1; J12.89 CKD (chronic kidney disease) N18.2 Chronic kidney disease stage: stage 2 (mild) Seropositive rheumatoid arthritis of multiple joints M05.79
[2020-01-06] MEDS: pantoprazole 40 mg SDV IVP (16:37)
--- NOTE | 2020-01-06 17:32 | P.CONIM_ITS ---
Providers/Reason For Consult Consulting Physican/Specialty*: Dr. 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 The history was obtained from chart and patient's Audrey. His daughter in law Lorenz works in Psych unit at [employer] [facility] [place]. The patient presented with COVID PNA and as he was hypoxic on HFNC was intubated on 12/26 (day of arrival). He was treated with broad-spectrum antibiotics including vancomycin, Zosyn and azithromycin. He was proned initially for 2-3 days with some improvement in oxygenation. Nephrology was involved in care early on in his course. However he was not proned for subsequent 6 days. The patient has also received remdesivir, dexamethasone and full dose anticoagulation. He was also diuresed intermittently. On 01/03, the patient was noted to be desaturating and was prone and paralyzed. EKG showed A sense BiV paced rhythm. Follow up EKG's on 01/02 and 01/05 showed A sense V paced rhythm and deep T wave inversions in I, aVL, V5, V6 and T wave inversion in lead II. Prolonged QT interval. Review of Systems General: Reports: ROS unobtainable due to endotracheal tube Meds/Allergies Home Medications and Allergies Home Medications Medication Instructions Recorded Confirmed Last Taken Type allopurinol 300 mg tablet 300 mg PO DAILY 04/08/19 12/27/19 Unknown History aspirin 81 mg tablet,delayed 81 mg PO DAILY 04/08/19 12/27/19 Unknown History release bumetanide 1 mg tablet 1 mg PO BID 04/08/19 12/27/19 Unknown History calcitriol 0.25 mcg capsule 0.25 mcg PO DAILY cap 04/08/19 12/27/19 Unknown History carvedilol 6.25 mg tablet 6.25 mg PO BID 04/08/19 12/27/19 Unknown History diphenhydramine HCl 25 mg capsule 25 mg PO BEDTIME PRN cap 04/08/19 12/27/19 Unknown History ferrous sulfate 325 mg (65 mg 325 mg PO BID 04/08/19 12/27/19 Unknown History iron) tablet fluvastatin 40 mg capsule 40 mg PO BID 04/08/19 12/27/19 Unknown History glucosamine sulfate 2KCl 1,000 mg 1,000 mg PO BID PRN 04/08/19 12/27/19 Unknown History tablet gabapentin 300 mg capsule See Rx Instructions PO .COMPLEX 10/06/19 12/27/19 Unknown Rx #60 cap prednisone 10 mg tablet See Rx Instructions PO .COMPLEX 10/06/19 12/27/19 Unknown Rx PRN #30 tab tofacitinib 5 mg tablet 5 mg PO DAILY #30 tab 10/06/19 12/27/19 Unknown Rx Calcium 600 + D(3) 1 tab PO DAILY 12/27/19 12/27/19 Unknown History acetaminophen [Tylenol Extra 1,000 mg PO PRN 12/27/19 12/27/19 Unknown History Strength] Allergies Allergy/AdvReac Type Severity Reaction Status Date / Time leflunomide [From Arava] Allergy Intermediate rash Verified 12/27/19 13:45 Current Medications Current Medications Generic Name Dose Route Start Last Admin Trade Name Freq PRN Reason Stop Dose Admin Albuterol/Ipratropium 3 ml 12/28/19 00:04 01/06/20 16:23 Duoneb INHALATION 3 ml Q4H PRN Administration SHORTNESS OF BREATH Allopurinol 300 mg 12/28/19 09:00 01/06/20 09:33 Zyloprim PO 300 mg DAILY SONAM Administration Artificial Tears 1 drop 01/01/20 18:00 01/06/20 17:11 Isopto Tears EYE-BOTH 1 drop BID SONAM Administration Aspirin 81 mg 12/28/19 09:00 01/06/20 09:39 Aspirin Ec PO 81 mg DAILY SONAM Administration Atorvastatin Calcium 20 mg 12/28/19 09:00 01/06/20 09:33 Lipitor PO 20 mg DAILY SONAM Administration Bisacodyl 10 mg 12/27/19 14:38 01/04/20 06:29 Dulcolax PO 10 mg DAILY PRN Administration CONSTIPATION Budesonide 0.25 mg 12/28/19 08:00 01/06/20 08:14 Pulmicort INHALATION 0.25 mg BID.RESPIRATORY SONAM Administration Calcium Carbonate 1 each 12/28/19 09:00 01/06/20 09:33 Oyster Shell 600mg-Vit D 400unit PO 1 each DAILY SONAM Administration Calcium Carbonate 500 mg 12/31/19 09:00 01/06/20 17:10 Tums PO 500 mg BID SONAM Administration Dexamethasone 6 mg 12/28/19 12:00 01/06/20 11:12 Decadron IVP 6 mg Q24H SONAM Administration Heparin Sodium/Sodium Chloride 25,000 unit in 500 mls @ 25.401 mls/hr 12/27/19 15:00 01/06/20 08:30 Heparin Drip IV 9.92 unit/kg/hr .[id number] SONAM 18 mls/hr Infusion 14 UNIT/KG/HR Propofol 1,000 mg in 100 mls @ 0 mls/hr 12/27/19 17:30 01/06/20 16:15 Diprivan IV 50 mcg/kg/min .Q0M SONAM 27.2 mls/hr Titration Protocol Per Protocol Dexmedetomidine HCl 400 mcg/ 104 mls @ 0 mls/hr 12/27/19 18:00 01/06/20 05:03 Sodium Chloride IV 0.3 mcg/kg/hr .Q0M SONAM 7.1 mls/hr Administration Protocol Per Protocol Norepinephrine Bitartrate 4 mg 254 mls @ 0 mls/hr 12/27/19 23:00 12/28/19 13:00 / Dextrose IV 0 mcg/min .Q0M SONAM 0 mls/hr Titration Protocol Per Protocol Rocuronium [place] 100 mg/ 100 mls @ 0 mls/hr 01/04/20 12:00 01/05/20 13:28 Sodium Chloride IV 0 mls/hr Q0M SONAM Infusion As Directed Fentanyl 1,000 mcg/ Sodium 100 mls @ 0 mls/hr 01/05/20 01:15 01/06/20 15:29 Chloride IV 100 mcg/hr .Q0M SONAM 10 mls/hr Titration Protocol Per Protocol Midazolam HCl 100 mg/ Sodium 100 mls @ 0 mls/hr 01/06/20 07:15 01/06/20 16:15 Chloride IV 3 mg/hr .Q0M SONAM 3 mls/hr Titration Protocol Per Protocol Metronidazole 500 mg in 100 mls @ 100 mls/hr 01/06/20 11:00 01/06/20 13:11 Flagyl Iv IV Infused Q8H SONAM Infusion Protocol Linezolid 600 mg in 300 mls @ 300 mls/hr 01/06/20 11:00 01/06/20 13:11 Zyvox Premix IV Infused Q12H SONAM Infusion Protocol Insulin Aspart 0 unit 01/05/20 12:30 01/06/20 12:22 Novolog SUBCUT 10 unit Q6H SONAM Administration Protocol Lanolin 1 applic 01/05/20 15:26 01/06/20 16:17 Lanolin Oint TOPICAL 1 applic Q6H PRN Administration DRYNESS Morphine Sulfate 2 mg 12/27/19 14:38 12/30/19 17:45 Morphine IVP 2 mg Q4H PRN Administration SEVERE PAIN Pantoprazole Sodium 40 mg 12/27/19 16:00 01/06/20 16:37 Protonix IVP 40 mg Q24H SONAM Administration PFSH Acute PFSH: Medical History CKD (chronic kidney disease) Gout High risk medication use Immunization counseling Immunosuppression Iron deficiency anemia Seropositive rheumatoid arthritis of multiple joints Surgical History History of tonsillectomy Hx of appendectomy Family History Other Cancer Hypertension Denies family history of Rheumatoid arthritis Diabetes Systemic lupus erythematosus (SLE) in adult Social History Smoking and tobacco status: former smoker Quit status (tobacco): has quit using tobacco Year quit tobacco: 1970 Alcohol intake: never Lives independently: No Household members: spouse Marital status: History of recent travel: No Vitals/I&O/Wt Last Vital Signs Temp 98.6 F 01/06/20 16:15 Pulse 84 01/06/20 17:30 Resp 23 H 01/06/20 16:24 BP 108/58 01/06/20 17:30 Pulse Ox 92 01/06/20 17:30 01/06/20 01/06/20 01/06/20 06:59 14:59 22:59 Intake Total 80.667 / 2472.227 1288.696 / 1288.696 53.513 / 1342.209 Output Total 550 / 1925 550 / 550 Balance -469.333 / 547.227 738.696 / 738.696 53.513 / 792.209 Weight last 48 hrs Weight 191 lb 9.6 oz Weight 190 lb 12.8 oz Physical Exam Narrative: EXAM NARRATIVE: Patient was not examined today Urinary Catheter Management^: Muniz: Cath Placed During This Visit: yes Reason for Continuing Indwelling Catheter: Accurate Measurement of Urinary Output in Critically Ill Patients Urinary Catheter Date of Insertion: 12/27/19 Urinary Catheter Time of Insertion: 17:59 Data Labs: Other Labs: Laboratory Tests 01/05/20 04:08 ABG pH 7.34 L ABG pCO2 51.7 H ABG pO2 78.7 L FiO2 70.0 PEEP 12.0 Micro: Micro: Microbiology 01/06/20 08:00 Gram Stain - Final Sputum - Endotrac heal Tube Aspirate Imaging^: Echo: I personally reviewed and interpreted this imaging study as follows: My impression: CONCLUSIONS Normal LV size with a slightly tender ejection fraction 50%. Diffuse hypokinesia of the septum.Grade I/IV diastolic dysfunction (abnormal relaxation filling pattern), normal to mildly elevated filling pressures. Thickened aortic valve. There is no pericardial effusion. Trace tricuspid valve regurgitation. There are no intracardiac masses. Pacemaker/defibrillator wire is noted A&P Assessment and plan (1) Respiratory failure with hypoxia: Being managed per primary and pulmonary Status: Acute Qualifiers: Chronicity: acute Qualified Code(s): J96.01 - Acute respiratory failure with hypoxia (2) Acute respiratory distress syndrome (ARDS) due to 2019-nCoV: Status: Acute (3) Acute kidney injury superimposed on CKD: Status: Acute Additional A&P Information Cardiomyopathy s/p ART SALES CONSULTANT-D: follow up on records from [facility]; improved LVEF with ART SALES CONSULTANT.No prior ICD shocks. agree with IV bumex. CXR with some improvement in pulmonary congestion. Prolonged QT : Recommend using alternative antifungal if possible, especially in setting of hyperkalemia and EKG changes. Follow up BMP, Magnesium in am. If there is no alternative, may consider voriconazole, however would need close telemetry monitoring and serial daily EKG at least. Hyperkalemia H/o LBBB Iron deficiency anemia Consult Attestations Medical Necessity Statement: remains critically ill. Coding Level of Care Code New Pt Acute Office Bookkeeper for Chg Fwd Patient Type New Medical Decision Making High Complexity Diagnoses Respiratory failure with hypoxia J96.01 Chronicity: acute Acute respiratory distress syndrome (ARDS) due to 2019-nCoV U07.1; J80 Acute kidney injury superimposed on CKD N17.9; N18.9 Time Spent (min) 40 Comment chart/record review; discussing with family
--- NOTE | 2020-01-06 17:40 | PC.RESP ---
Dr. Gonzalez is okay with increasing fio2 .
[2020-01-06 17:47] LABS: Glucose Point of Care 318 mg/dL (70-110)
[2020-01-06] MEDS: enoxaparin 100 mg/mL Syringe 86 MG SUBCUT (17:59)
--- NOTE | 2020-01-06 18:28 | XRR_ITS ---
PROCEDURE INFORMATION: Exam: XR Chest, 1 View Exam date and time: 01/06/2020 7:29 PM Age: 69 years old Clinical indication: Other: Decrease stats; Prior surgery; Surgery type: Pacemaker; Additional info: Decrease sats TECHNIQUE: Imaging protocol: XR of the chest Views: 1 view. COMPARISON: CR XR chest 1V portable [id number] 01/06/2020 6:42 AM FINDINGS: Tubes, catheters and devices: A pacemaker device is present, and its leads are in appropriate position. There is an ET tube with tip just below the clavicular heads but well above the warren and an orogastric tube with tip off the film. Lungs: Continued but improving bibasilar consolidation is present, consistent with atelectasis, edema, or pneumonia. There is improving vascular congestion with cephalization of flow, interstitial edema and ground-glass opacities compatible with CHF. Pleural space: Unremarkable. No pleural effusion. No pneumothorax. Heart/Mediastinum: The heart is enlarged. Bones/joints: No acute abnormality. Other findings: There is better depth of inspiration. XR/XR chest 1V [id number] IMPRESSION: 1. Continued but improving bibasilar consolidation is present, consistent with atelectasis, edema, or pneumonia. 2. There is improving vascular congestion with cephalization of flow, interstitial edema and ground-glass opacities compatible with CHF.
[2020-01-06] MEDS: bumetanide 0.25 mg/mL SDV 10 mL 2 MG IV (18:42)
--- NOTE | 2020-01-06 18:43 | PC.NURSE ---
Contacted radiology regarding stat chest xray and they did not answer. Tried to contact respiratory regarding ABG and need to increase peep to 10. I have tried to contact them multiple times. I increased peep to [address] Gonzalez. Witnessed by [place] RN.
--- NOTE | 2020-01-06 19:48 | PC.NURSE ---
Just spoke with Dr. Gonzalez and made him aware that latest CXR was available for his review. Told him still waiting on RT to draw the ABG. He asked about pt's vent settings, resp rate. No new orders at this time. Cont to monitor.
[2020-01-07] VITALS (108 sets, daily range): BP systolic 110–176; BP diastolic 54–105; PULSE 60–137; RESP 16–24; TEMP 36.7–37.3; O2SAT 88–98
[2020-01-07] MEDS: ipratropium-albuterol 3 mL Neb INHALATION ×6 (00:32→23:47)
[2020-01-07 00:50] LABS: Glucose Point of Care 375 mg/dL (70-110)
[2020-01-07] MEDS: propofol 1,000 MG/100 ML INJ 21.8 MG IV (00:58)
[2020-01-07] MEDS: metroNIDAZOLE IV 500 MG/100 ML PREMIX 100 MG IV ×3 (03:00→18:07)
[2020-01-07] MEDS: dexmedetomidine 400 MCG in sodium chloride 0.9% (100 ml) 100 ML 7.1 MCG IV (03:01)
[2020-01-07 03:16] LABS: ABG PCO2 47.6 mmHg (35-45); ABG PH Result 7.36 (7.35-7.45); Alveolar-Arterial Oxygen Gradi 56.8 mmHg (5-10); Arterial Blood Gas Hematocrit 35.6 % (42-52); Base Excess ABG 1.1 mmol/L (-2.0-2.0); Blood Gas Sample Site Brachial, right; Blood Gas Sample Type Arterial; Carboxyhemoglobin 1.1 %THgb (0.4-20.1); HGB O2 Sat 94.2 % (95-100); Ionized Calcium Level - ABG 1.1 mmol/L (1.1-1.4); Methemoglobin 0.8 % (0.4-1.5); Oxygen Device VENT; Oxygen Saturation ABG 96.1; PO2 ABG 78.9 mmHg (80.0-100.0); Potassium Level - ABG 5.4 mmol/L (3.5-5.0); Total Hemoglobin 11.6 g/dL (14-18)
[2020-01-07] MEDS: enoxaparin 100 mg/mL Syringe 86 MG SUBCUT ×2 (05:51→17:33)
--- NOTE | 2020-01-07 06:00 | ECG_ITS ---
[facility] ED Test Date: 2020-01-07 Pat Name: Moses Joseph Department: Room: ICU19 Gender: Male Certification Officer: JOSHUA : 1950 Requested By: Hoa Martin Order Number: [id number] Kay MD: Hoa Martin M.D. Measurements Intervals [place] Rate: 68 P: 45 MT: 149 QRS: 119 QRSD: 101 T: 151 QT: 486 QTc: 520 Interpretive Statements A sense V paced rhythm Compared to ECG 01/06/2020 12:53:43 ST (T wave) deviation no longer present Myocardial infarct finding no longer present Electronically Signed On 01-07-2020 19:37:38 LIFESTYLE CONSULTANT by Hoa Martin M.D. [email or web address] Centersyalobusha general hospitalActivaided Orthoticsohiohealth grant medical centerCar [id number]
[2020-01-07 06:22] LABS: Basophils % 0.1 %; Hematocrit 35.3 % (42.0-52.0); Lymphocytes # 0.1 10^3/uL (0.8-4.8); Lymphocytes % 1.4 %; Mean Corpuscular HGB Conc 31.2 g/dL (30.0-36.0); Mean Corpuscular Volume 102.6 fL (80-94); Mean Platelet Volume 12.4 fL (7.4-10.4); Monocytes # 0.5 10^3/uL (0.2-0.9); Monocytes % 4.6 %; Neutrophils # 9.05 10^3/uL (1.8-7.7); Nucleated Red Blood Cells % 0 %; Platelet Count 177 10^3/cmm (130-400); Red Blood Count 3.44 10^6/uL (4.1-5.3); White Blood Count 9.8 10^3/uL (4.0-10.0)
[2020-01-07 06:38] LABS: C Reactive Protein 35.2 mg/L (0.0-4.9)
[2020-01-07 06:44] LABS: Alanine Aminotransferase 29 U/L (0-41); Albumin Level 2.4 g/dL (3.5-5.2); Alkaline Phosphatase 54 IU/L (40-130); Anion Gap 13.5 (5-19); Aspartate Amino Transferase 34 U/L (0-40); Blood Urea Nitrogen 47 mg/dL (8-23); Calcium 7.9 mg/dL (8.5-10.5); Carbon Dioxide 26 mmol/L (22-29); Chloride 104 mmol/L (98-107); Globulin 2.9 g/dL (1.3-4.6); Glomerular Filtration Rate 50.1 mL/min (90-130); Glucose 384 mg/dL (65-115); Osmolality Calculated 314 mOsm/kg (285-295); Potassium 5.5 mmol/L (3.5-5.1); Sodium 138 mmol/L (136-145); Total Bilirubin 0.3 mg/dL (0.15-1.2); Total Protein 5.3 g/dL (6.6-8.7)
[2020-01-07 06:45] LABS: Magnesium 2.4 mg/dL (1.7-2.3)
[2020-01-07 07:18] LABS: Glucose Point of Care 349 mg/dL (70-110)
[2020-01-07 08:05] LABS: D Dimer 1.51 ug/mIFEU (0-0.59)
[2020-01-07] MEDS: budesonide 0.5 mg/2 mL Neb 0.25 MG INHALATION ×2 (08:22→20:38)
[2020-01-07] MEDS: artificial tears Op Soln 15 mL Btl 1 DROP EYE-BOTH ×2 (08:50→17:33)
[2020-01-07] MEDS: aspirin 81 mg EC Tablet PO (08:51)
[2020-01-07] MEDS: calcium carb-vit d 600mg/400unit 1 Tablet 1 EACH PO (08:51)
[2020-01-07] MEDS: lanolin oint 7 gm 1 APPLIC TOPICAL ×2 (08:51→17:34)
[2020-01-07] MEDS: allopurinol 300 mg Tablet PO (08:51)
[2020-01-07] MEDS: insulin glargine 100 units/1 mL 10 UNIT SUBCUT (08:51)
[2020-01-07] MEDS: atorvastatin 40 mg Tablet 20 MG PO (08:51)
[2020-01-07] MEDS: calcium carbonate 500 mg Chew Tablet PO ×2 (08:51→17:33)
[2020-01-07] MEDS: propofol 1,000 MG/100 ML INJ 16.3 MG IV ×3 (08:59→21:42)
[2020-01-07] MEDS: linezolid premix 600 MG/300 ML PREMIX 300 MG IV (10:47)
[2020-01-07 11:39] LABS: Glucose Point of Care 369 mg/dL (70-110)
[2020-01-07] MEDS: dexamethasone 4 mg/mL INJ 6 MG IVP (12:03)
--- NOTE | 2020-01-07 14:42 | PM.PN ---
Subjective Subjective: Interval history: Intubated, sedated. Yesterday trying to wean sedation was moving spontaneously, withdrawing to pain. Oxygenation worse on the right, this morning FiO2 requirement 80%. Sedation has been resumed, currently continued. Vitals/I&O/Wt Last Vital Signs Temp 98.6 F 01/07/20 12:00 Pulse 103 H 01/07/20 12:30 Resp 20 H 01/07/20 11:45 BP 155/73 01/07/20 12:30 Pulse Ox 93 01/07/20 12:30 01/06/20 01/07/20 01/07/20 22:59 06:59 14:59 Intake Total 1476.862 / 2765.558 932.542 / 3698.100 1784.361 / 1784.361 Output Total 1300 / 1850 550 / 2400 600 / 600 Balance 176.862 / 915.558 382.542 / 6063.868 1679.361 / 1184.361 Weight last 48 hrs Weight 86.908 kg Physical Exam Const: COMMON NORMALS: no acute distress HENMT: COMMON NORMALS: oropharynx normal Neck/C-Spine: COMMON NORMALS: no JVD Resp: COMMON NORMALS: normal respiratory effort AUSCULTATION: crackles Laterality: left (Base) Cardio: COMMON NORMALS: no JVD, regular rhythm, S1 normal heart sound present, S2 normal heart sound present and No murmurs present (Cardio) RHYTHM: regular rhythm HEART SOUNDS: S1 normal heart sound present and S2 normal heart sound present GI: COMMON NORMALS: Normal to inspection, nondistended, normoactive bowel sounds present, Soft to palpation and non-tender PALPATION: Yes Soft to palpation Extremity: COMMON NORMALS: no joint enlargement and no pedal edema Neuro: COMMON NORMALS: moves all extremities Skin: COMMON NORMALS: no rashes or lesions noted GENERAL SKIN EXAM: no rashes or lesions noted Urinary Catheter Management^: Muniz: Cath Placed During This Visit: yes Reason for Continuing Indwelling Catheter: Accurate Measurement of Urinary Output in Critically Ill Patients Urinary Catheter Date of Insertion: 12/27/19 Urinary Catheter Time of Insertion: 17:59 Data : 01/07/20 03:10 01/07/20 03:10 Micro: Microbiology 01/06/20 08:00 Gram Stain - Final Sputum - Endotracheal Tube Aspirate Sputum Culture - Preliminary Gram Negative Rods A&P Assessment and plan (1) Respiratory failure with hypoxia: Overnight oxygenation worsened. FiO2 up to 80%. Attempted to increase PEEP not optimal per discussion with pulmonology. For now maintain same FiO2. CRP today is little bit higher. D-dimer a little bit lower. Renal function a bit worse, creatinine 1.4, but is in positive balance. I do not see weight recorded, requested weights. Per discussion with pulmonology we will go ahead and give him additional Lasix dose. Continue antibiotics with Flagyl, linezolid. Leukocytosis resolved. Not particularly impressive procalcitonin at 0.2. Tracheal aspirate cultures were requested. Also requested galactomannan. Antifungal options with pulmonology and cardiology. Voriconazole not ideal due to QTC prolongation, but still deemed to be optimal medication among what is available. Started on 01/05. QTc today unchanged. Monitor again decreased. Monitor electrolytes. Continued severe COVID 19 PNA and hypoxic respiratory failure. Weaned off Precedex. Continues on propofol, fentanyl, Versed. Triglycerides on 01/05 borderline normal at 150. Recheck tomorrow. D-dimer appears to be stable. Switched over to Lovenox 01/05. At this time continues on Decadron. Remdesivir was discontinued. At this time is not requiring any pressor. Continue daily attempts to wean sedation. Perhaps consideration may need to be given to tracheostomy. We will await additional evaluation by pulmonology. MRSA PCR was negative, no growth on sputum culture. TTE with EF 50%, some mild global LV hypokinesis. LVEF is better than in 2018. Discussed with pt's . Yesterday also with [id number]. -s/p 5 days of remdesivir (12/30) -sputum cx; mixed khloe, gram stain polymicrobial DIL Gerda [phone] Status: Acute Qualifiers: Chronicity: acute Qualified Code(s): J96.01 - Acute respiratory failure with hypoxia (2) Acute respiratory distress syndrome (ARDS) due to 2019-nCoV: As above. Status: Acute (3) Pneumonia due to COVID-19 virus: Severe COVID-19 pneumonia with hypoxic respiratory failure. As above. -Not oxygen dependent at baseline Status: Acute (4) CKD (chronic kidney disease): Improved from admit. Monitor. Requiring some diuresis. -JULIA on CKD stage 2 -Baseline creatinine appears to be around 1 His senior accounting manager is Dr Christina Mehta, YESS[facility] in [place] Status: Acute Qualifiers: Chronic kidney disease stage: stage 2 (mild) Qualified Code(s): N18.2 - Chronic kidney disease, stage 2 (mild) (5) Seropositive rheumatoid arthritis of multiple joints: -Follows up with Dr. Macias -Is on chronic steroids and Xeljanz; has had difficulty tolerating alternative treatment Status: Chronic Additional A&P Information -History of combined systolic and diastolic CHF; s/p pacemaker, defibrillator; f/u with cardiology. Echo (2018): EF=31%, G1DD, global LV hypokinesis, mild MR, trace AR, mild TR, trace AL. TTE currently ejection fraction 50%, grade 1 diastolic dysfunction. Discussed with his [id number] per request of his . It is still improved from his prior EF. There is some global hypokinesis as discussed, it is not clear whether this may be still persistent changes from prior illness, or if this is again new or worsening secondary to the virus. Today he is given low-dose of Lasix 20 mg IV x1. We will continue to monitor volume status. Followed with Dr Anthony Torres, cardiology, [place]. Requested cardiac records. QTC prolongation. Status post SUGAR LABORATORY ASSISTANT/PPM. Discussed with cardiology. Appreciate recommendations. -hx of gout -hx of iron deficiency anemia; H/H stable -prior hx of Erlichiosis with sepsis and multi-organ failure -tube feeds, with water flushes -GI ppx with PPI -Dispo: home -Code status: FULL code -guarded prognosis given continued vent support, ARDS Attestations Medical Necessity Statement*: Continue admission for assessment of management of respiratory failure requiring mechanical ventilatory support, severe COVID-19 infection, pneumonia. Coding Level of Care Code Acute Machine Stripper for [facility] Fwd Diagnoses Respiratory failure with hypoxia J96.01 Chronicity: acute Acute respiratory distress syndrome (ARDS) due to 2019-nCoV U07.1; J80 Pneumonia due to COVID-19 virus U07.1; J12.89 CKD (chronic kidney disease) N18.2 Chronic kidney disease stage: stage 2 (mild) Seropositive rheumatoid arthritis of multiple joints M05.79
--- NOTE | 2020-01-07 14:55 | PC.SOCIAL ---
[facility] Updated Page 2 of [facility] updated with patient's Lakeshia over the phone. Initialed, dated, and timed.
[2020-01-07] MEDS: FUROsemide 10 mg/mL SDV 4mL 40 MG IVP (15:27)
[2020-01-07] MEDS: pantoprazole 40 mg SDV IVP (15:27)
[2020-01-07 17:24] LABS: Glucose Point of Care 229 mg/dL (70-110)
--- NOTE | 2020-01-07 18:25 | PC.NURSE ---
Spoke with family member Henna who is stating that she wants the patient transferred. I called MD Pineda to make him aware. No further orders given.
--- NOTE | 2020-01-07 19:46 | PM.PN ---
Subjective Subjective: Interval history: Patient intubated and sedated. Occasional PVC's on telemetry. Paced rhythm. +2L from yesterday, LOS+~5 L. Medications: Reviewed: Yes Medication Review Details: Current Medications Acetaminophen (Tylenol) 650 mg PO Q6H PRN PRN Reason: Mild/Mod Pain Or Temp >/= 101 Albuterol/Ipratropium (Duoneb) 3 ml INHALATION Q4H PRN PRN Reason: SHORTNESS OF BREATH Last Admin: 01/07/20 20:38 Dose: 3 ml Documented by: Allopurinol (Zyloprim) 300 mg PO DAILY [facility] Last Admin: 01/07/20 08:51 Dose: 300 mg Documented by: Artificial Tears (Isopto Tears) 1 drop EYE-BOTH BID [facility] Last Admin: 01/07/20 17:33 Dose: 1 drop Documented by: Aspirin (Aspirin Ec) 81 mg PO DAILY [facility] Last Admin: 01/07/20 08:51 Dose: 81 mg Documented by: Atorvastatin Calcium (Lipitor) 20 mg PO DAILY [facility] Last Admin: 01/07/20 08:51 Dose: 20 mg Documented by: Bisacodyl (Dulcolax) 10 mg PO DAILY PRN PRN Reason: CONSTIPATION Last Admin: 01/04/20 06:29 Dose: 10 mg Documented by: Budesonide (Pulmicort) 0.25 mg INHALATION BID.RESPIRATORY [facility] Last Admin: 01/07/20 20:38 Dose: 0.25 mg Documented by: Calcium Carbonate (Oyster Shell 600mg-Vit D 400unit) 1 each PO DAILY [facility] Last Admin: 01/07/20 08:51 Dose: 1 each Documented by: Calcium Carbonate (Tums) 500 mg PO BID [facility] Last Admin: 01/07/20 17:33 Dose: 500 mg Documented by: Dexamethasone (Decadron) 6 mg IVP Q24H [facility] Last Admin: 01/07/20 12:03 Dose: 6 mg Documented by: Dextrose (D50w) 25 ml IVP ONCE PRN; Protocol PRN Reason: hypoglycemia protocol Dextrose (D50w) 50 ml IVP PRN PRN; Protocol PRN Reason: hypoglycemia protocol Diphenhydramine HCl (Benadryl) 25 mg PO BEDTIME PRN PRN Reason: Sleep Enoxaparin Sodium (Lovenox) 86 mg SUBCUT Q12H [facility] Last Admin: 01/07/20 17:33 Dose: 86 mg Documented by: Glucagon (Glucagen) 1 mg IM ONCE PRN; Protocol PRN Reason: Adult Acute Hypoglycemia Prot. Propofol (Diprivan) 1,000 mg in 100 mls @ 0 mls/hr IV .Q0M [facility]; Protocol Last Admin: 01/07/20 15:28 Dose: 30 mcg/kg/min, 16.3 mls/hr Documented by: Dexmedetomidine HCl 400 mcg/ (Sodium Chloride) 104 mls @ 0 mls/hr IV .Q0M [facility]; Protocol Last Titration: 01/07/20 10:23 Dose: Infused Documented by: Norepinephrine Bitartrate 4 mg (/ Dextrose) 254 mls @ 0 mls/hr IV .Q0M [facility]; Protocol Last Titration: 12/28/19 13:00 Dose: 0 mcg/min, 0 mls/hr Documented by: Rocuronium [place] 100 mg/ (Sodium Chloride) 100 mls @ 0 mls/hr IV Q0M [facility] Last Infusion: 01/05/20 13:28 Dose: 0 mls/hr Documented by: Fentanyl 1,000 mcg/ Sodium (Chloride) 100 mls @ 0 mls/hr IV .Q0M [facility]; Protocol Last Admin: 01/07/20 12:51 Dose: 100 mcg/hr, 10 mls/hr Documented by: Dextrose (D5w) 500 mls @ 100 mls/hr IV ONCE PRN; Protocol PRN Reason: Adult Acute Hypoglycemia Prot Midazolam HCl 100 mg/ Sodium (Chloride) 100 mls @ 0 mls/hr IV .Q0M [facility]ON[facility]; Protocol Last Titration: 01/07/20 10:23 Dose: 1 mg/hr, 1 mls/hr Documented by: Linezolid (Zyvox Premix) 600 mg in 300 mls @ 300 mls/hr IV Q12H [facility]; Protocol Last Infusion: 01/07/20 12:23 Dose: Infused Documented by: Imipenem/Cilastatin Sodium 250 (mg/ Sodium Chloride) 100 mls @ 200 mls/hr IV Q6H [facility]; Protocol Insulin Aspart (Novolog) 0 unit SUBCUT Q6H [facility]; Protocol Last Admin: 01/07/20 17:53 Dose: 8 unit Documented by: Insulin Glargine (Lantus) 10 unit SUBCUT DAILY [facility] Last Admin: 01/07/20 08:51 Dose: 10 unit Documented by: Lanolin (Lanolin Oint) 1 applic TOPICAL Q6H PRN PRN Reason: DRYNESS Last Admin: 01/07/20 17:34 Dose: 1 applic Documented by: Morphine Sulfate (Morphine) 2 mg IVP Q4H PRN PRN Reason: SEVERE PAIN Last Admin: 12/30/19 17:45 Dose: 2 mg Documented by: Naloxone HCl (Narcan) 0.1 mg IVP Q2M PRN PRN Reason: OPIATERV Ondansetron HCl (Zofran) 4 mg IVP Q8H PRN PRN Reason: vomiting, or N/V if npo Pantoprazole Sodium (Protonix) 40 mg IVP Q24H [facility] Last Admin: 01/07/20 15:27 Dose: 40 mg Documented by: Vitals/I&O/Wt Last Vital Signs Temp 99.1 F 01/07/20 16:00 Pulse 98 01/07/20 18:15 Resp 20 H 01/07/20 18:15 BP 141/78 01/07/20 18:15 Pulse Ox 93 01/07/20 18:15 01/07/20 01/07/20 01/07/20 06:59 14:59 22:59 Intake Total 932.542 / 3698.100 1784.361 / 1784.361 256.923 / 2041.284 Output Total 550 / 2400 600 / 600 1600 / 2200 Balance 382.542 / 5323.815 7840.361 / 1184.361 -1343.077 / -158.716 Weight last 48 hrs Weight 191 lb 9.6 oz Physical Exam Narrative: EXAM NARRATIVE: Gen: intubated and sedated CVS: S1, S2 regular, No murmur, rub or gallop RS: decreased breath sounds lower lung field RANGE RIDER: sedated and intubated Ext: warm extremities, no edema Skin: No rash Urinary Catheter Management^: Muniz: Cath Placed During This Visit: yes Reason for Continuing Indwelling Catheter: Accurate Measurement of Urinary Output in Critically Ill Patients Urinary Catheter Date of Insertion: 12/27/19 Urinary Catheter Time of Insertion: 17:59 Data : 01/07/20 03:10 01/07/20 03:10 Micro: Microbiology 01/06/20 08:00 Gram Stain - Final Sputum - Endotracheal Tube Aspirate Sputum Culture - Preliminary Gram Negative Rods A&P Assessment and plan (1) Respiratory failure with hypoxia: Being managed per primary and pulmonary. He is on waitlist for bed at outpatient facility as per family request. Status: Acute Qualifiers: Chronicity: acute Qualified Code(s): J96.01 - Acute respiratory failure with hypoxia (2) Acute respiratory distress syndrome (ARDS) due to 2019-nCoV: Status: Acute (3) Acute kidney injury superimposed on CKD: Creatinine 1.4 tody, recieved lasix 40 IV x 1 earlier this evening; remains in positive balance. -start on lasix 40 mg IV BID -I/O and daily weight. f/u on BMP. Status: Acute Additional A&P Information Cardiomyopathy s/p TERMITE TREATER HELPER-D: follow up on records from [facility]; improved LVEF with TERMITE TREATER HELPER.No prior ICD shocks. agree with IV bumex. CXR with some improvement in pulmonary congestion. Prolonged QT : Recommend using alternative antifungal if possible, especially in setting of hyperkalemia and EKG changes. Follow up BMP, Magnesium in am. If there is no alternative, may consider voriconazole, however would need close telemetry monitoring and serial daily EKG at least. Hyperkalemia H/o LBBB Iron deficiency anemia Attestations Medical Necessity Statement*: remains critically ill. Coding Level of Care Code Acute Steel Melter for Curly Franz Diagnoses Respiratory failure with hypoxia J96.01 Chronicity: acute Acute respiratory distress syndrome (ARDS) due to 2019-nCoV U07.1; J80 Acute kidney injury superimposed on CKD N17.9; N18.9
[2020-01-08] VITALS (113 sets, daily range): BP systolic 120–176; BP diastolic 62–96; PULSE 62–132; RESP 18–26; TEMP 36.3–37.3; O2SAT 86–97
[2020-01-08] MEDS: linezolid premix 600 MG/300 ML PREMIX 300 MG IV ×3 (00:11→23:15)
[2020-01-08 01:06] LABS: Glucose Point of Care 213 mg/dL (70-110)
[2020-01-08] MEDS: propofol 1,000 MG/100 ML INJ 16.3 MG IV ×4 (03:09→21:37)
[2020-01-08] MEDS: ipratropium-albuterol 3 mL Neb INHALATION ×6 (03:09→23:40)
[2020-01-08 04:33] LABS: Basophils % 0.1 %; Hematocrit 36.6 % (42.0-52.0); Hemoglobin 11.7 g/dL (11.7-16.6); Lymphocytes # 0.2 10^3/uL (0.8-4.8); Lymphocytes % 1.7 %; Mean Corpuscular Hemoglobin 31.9 pg (28.0-34.0); Mean Corpuscular Volume 99.7 fL (80-94); Mean Platelet Volume 12.6 fL (7.4-10.4); Monocytes # 0.4 10^3/uL (0.2-0.9); Monocytes % 4.4 %; Neutrophils # 9.07 10^3/uL (1.8-7.7); Nucleated Red Blood Cells % 0 %; Platelet Count 163 10^3/cmm (130-400); Red Blood Count 3.67 10^6/uL (4.1-5.3); Red Cell Distribution Width 14.1 % (12.1-15.1); White Blood Count 9.9 10^3/uL (4.0-10.0)
[2020-01-08 05:03] LABS: C Reactive Protein 58.7 mg/L (0.0-4.9)
[2020-01-08 05:06] LABS: Magnesium 2.2 mg/dL (1.7-2.3); Triglycerides 121 mg/dL (0-150)
[2020-01-08 05:10] LABS: Alanine Aminotransferase 28 U/L (0-41); Albumin Level 2.4 g/dL (3.5-5.2); Alkaline Phosphatase 64 IU/L (40-130); Aspartate Amino Transferase 45 U/L (0-40); Blood Urea Nitrogen 39 mg/dL (8-23); Calcium 8.4 mg/dL (8.5-10.5); Carbon Dioxide 31 mmol/L (22-29); Chloride 103 mmol/L (98-107); Globulin 3.1 g/dL (1.3-4.6); Glomerular Filtration Rate 54.6 mL/min (90-130); Glucose 263 mg/dL (65-115); Osmolality Calculated 305 mOsm/kg (285-295); Sodium 138 mmol/L (136-145); Total Bilirubin 0.4 mg/dL (0.15-1.2); Total Protein 5.5 g/dL (6.6-8.7)
[2020-01-08 05:14] LABS: Anion Gap 10.1 (5-19); Potassium 6.1 mmol/L (3.5-5.1)
[2020-01-08] MEDS: enoxaparin 100 mg/mL Syringe 86 MG SUBCUT ×2 (05:20→17:32)
[2020-01-08 05:37] LABS: Glucose Point of Care 248 mg/dL (70-110)
--- NOTE | 2020-01-08 05:57 | PC.NURSE ---
Shift Events: Patient has remained intubated and sedated all shift. Does not follow commands. Withdraws to pain. GCS of 6. Patient turned every 2 hours for pressure reduction. Good urine output from zapien. T-max of 99.1. Blood sugars greater than 200 and were treated per protocol. Potassium 6.1. Orders received to give 10 units of Insulin with 1 amp of D50 and 1gm of Calcium gluconate. Pending transfer to either or [facility].
--- NOTE | 2020-01-08 06:00 | ECG_ITS ---
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 Measurements Intervals [place] Rate: 77 P: 38 IN: 139 QRS: 115 QRSD: 101 T: 147 QT: 443 QTc: 504 Interpretive Statements A sense V paced rhythm Deep T wave inversion, consider lateral ischemia vs memory T waves Compared to ECG 01/07/2020 05:50:35 No significant changes Electronically Signed On 01-10-2020 11:41:42 RD MECHANICAL ENGINEER by Hoa Martin M.D. [id number] f
[2020-01-08] MEDS: dextrose 50% syringe 50 mL 25 ML IVP (06:36)
--- NOTE | 2020-01-08 07:35 | PC.NURSE ---
Patient is intubated and sedated. Patient unable to complete full neuro exam due to this. Will discuss with MD if wants sedation vacation because yesterday when attempted sedation vacation patient desatted and became tachypnic. Awaiting on patient to transfer to outside hospital. Per nightshift nurse, patient is still on waiting list for both [place] and .
[2020-01-08] MEDS: budesonide 0.5 mg/2 mL Neb 0.25 MG INHALATION ×2 (07:58→20:25)
[2020-01-08] MEDS: calcium carbonate 500 mg Chew Tablet PO ×2 (07:59→17:32)
[2020-01-08] MEDS: atorvastatin 40 mg Tablet 20 MG PO (07:59)
[2020-01-08] MEDS: calcium carb-vit d 600mg/400unit 1 Tablet 1 EACH PO (07:59)
[2020-01-08] MEDS: allopurinol 300 mg Tablet PO (07:59)
[2020-01-08] MEDS: aspirin 81 mg EC Tablet PO (07:59)
[2020-01-08] MEDS: artificial tears Op Soln 15 mL Btl 1 DROP EYE-BOTH ×2 (08:00→17:33)
[2020-01-08] MEDS: lanolin oint 7 gm 1 APPLIC TOPICAL ×2 (08:00→17:33)
[2020-01-08] MEDS: insulin glargine 100 units/1 mL 10 UNIT SUBCUT (08:01)
--- NOTE | 2020-01-08 10:45 | PC.NURSE ---
contacted [facility] regarding patient status. they stated he was not a candidate because he has covid but to call them with a time of .
[2020-01-08 10:47] LABS: Potassium 5.3 mmol/L (3.5-5.1)
[2020-01-08 11:24] LABS: Glucose Point of Care 267 mg/dL (70-110)
[2020-01-08] MEDS: dexamethasone 4 mg/mL INJ 6 MG IVP (11:32)
[2020-01-08] MEDS: levofloxacin-dextrose 5 % 750 MG/150 ML PREMIX 100 MG IV (11:47)
[2020-01-08 15:30] LABS: D Dimer 1.05 ug/mIFEU (0-0.59)
--- NOTE | 2020-01-08 17:06 | PC.NURSE ---
Attempted sedation vacation for patient, only paused for a few minutes and patient became tachypnic, tachycardic, labored breathing and was desatting 86-88%. RT aware and turned sedation back on.
[2020-01-08 17:17] LABS: Glucose Point of Care 198 mg/dL (70-110)
[2020-01-08] MEDS: pantoprazole 40 mg SDV IVP (17:31)
[2020-01-08 18:13] LABS: Potassium 5.8 mmol/L (3.5-5.1)
[2020-01-08 19:59] LABS: Glucose Point of Care 218 mg/dL (70-110)
--- NOTE | 2020-01-08 20:39 | PM.PN ---
Subjective Subjective: Interval history: Intubated, sedated. Became tachypneic, tachycardic, labored breathing, with desaturation on attempted weaning of sedation. Vitals/I&O/Wt Last Vital Signs Temp 97.3 F L 01/08/20 16:00 Pulse 81 01/08/20 20:27 Resp 18 01/08/20 20:28 BP 145/86 01/08/20 18:00 Pulse Ox 93 01/08/20 20:27 01/08/20 01/08/20 01/08/20 06:59 14:59 22:59 Intake Total 663.835 / 3115.119 1437.801 / 1437.801 284 / 1721.801 Output Total 400 / 3325 400 / 400 700 / 1100 Balance 263.835 / -491.445 9336.801 / 1037.801 -416 / 621.801 Weight last 48 hrs Weight 94.256 kg Physical Exam Const: COMMON NORMALS: no acute distress OTHER: Thick sputum. HENMT: COMMON NORMALS: oropharynx normal Neck/C-Spine: COMMON NORMALS: no JVD Resp: COMMON NORMALS: normal respiratory effort AUSCULTATION: diminished lung sounds Cardio: COMMON NORMALS: no JVD, regular rhythm, S1 normal heart sound present, S2 normal heart sound present and No murmurs present (Cardio) RHYTHM: regular rhythm HEART SOUNDS: S1 normal heart sound present and S2 normal heart sound present GI: COMMON NORMALS: Normal to inspection, nondistended, normoactive bowel sounds present, Soft to palpation and non-tender PALPATION: Yes Soft to palpation Extremity: COMMON NORMALS: no joint enlargement and no pedal edema Neuro: COMMON NORMALS: moves all extremities Skin: COMMON NORMALS: no rashes or lesions noted GENERAL SKIN EXAM: no rashes or lesions noted Urinary Catheter Management^: Muniz: Cath Placed During This Visit: yes Reason for Continuing Indwelling Catheter: Accurate Measurement of Urinary Output in Critically Ill Patients Urinary Catheter Date of Insertion: 12/27/19 Urinary Catheter Time of Insertion: 17:59 Data : 01/08/20 03:10 01/08/20 15:27 Micro: Microbiology 01/06/20 08:00 Gram Stain - Final Sputum - Endotracheal Tube Aspirate Sputum Culture - Final Enterobacter cloacae 01/06/20 08:00 Fungal Smear - Preliminary Sputum - Expectorated Sputum A&P Assessment and plan (1) Respiratory failure with hypoxia: Unfortunately again attempted sedation wean was unsuccessful. FiO2 down to 65 % in the evening. I was unable to reach Gerda stevenson, but did discuss with his . We do see Enterobacter growing in his sputum culture, and this appears to be only intermediate sensitivity to imipenem. Added Levaquin today after discussion with pulmonology. Discussed today again with [facility], still no openings in [place] or [place]. On waiting list to [facility]. Await urine stream you. Discussed with his spouse additional consideration of tracheostomy if he is not improving by the end of the week. Discussed also with [facility], and they declined transfer as they would not have any additional different therapies to offer for him other than what he is already receiving on discussion with Dr. Murphy. They are also recommending consideration of tracheostomy if he is not improving. Also requested galactomannan. Antifungal options with pulmonology and cardiology. Voriconazole not ideal due to QTC prolongation, but still deemed to be optimal medication among what is available. Started on 01/05. QTc today unchanged. Monitor again decreased. Monitor electrolytes. Continued severe COVID 19 PNA and hypoxic respiratory failure. Continues on propofol, fentanyl, Versed. Triglycerides normal. He is having some thick secretions. Added Mucinex. D-dimer appears to be stable. Switched over to Lovenox 01/05. At this time continues on Decadron. Remdesivir was discontinued. At this time is not requiring any pressor. Continue daily attempts to wean sedation. Perhaps consideration may need to be given to tracheostomy. We will await additional evaluation by pulmonology. MRSA PCR was negative, no growth on sputum culture. TTE with EF 50%, some mild global LV hypokinesis. LVEF is better than in 2018. Discussed with pt's . Yesterday also with [id number]. -s/p 5 days of remdesivir (12/30) -sputum cx; mixed khloe, gram stain polymicrobial DIL Gerda cell phone number is [phone]. Attempted to update today, but no answer. Discussed with his . Status: Acute Qualifiers: Chronicity: acute Qualified Code(s): J96.01 - Acute respiratory failure with hypoxia (2) Acute respiratory distress syndrome (ARDS) due to 2019-nCoV: As above. Status: Acute (3) Pneumonia due to COVID-19 virus: Severe COVID-19 pneumonia with hypoxic respiratory failure. As above. -Not oxygen dependent at baseline Status: Acute (4) CKD (chronic kidney disease): Improved from admit. Monitor. Requiring some diuresis. -JULIA on CKD stage 2 -Baseline creatinine appears to be around [address] surgical corsetier [address] Dr Christina Mehta, WINDOWS ADMINISTRATOR Lis Ashley in [place] Status: Acute Qualifiers: Chronic kidney disease stage: stage 2 (mild) Qualified Code(s): N18.2 - Chronic kidney disease, stage 2 (mild) (5) Seropositive rheumatoid arthritis of multiple joints: -Follows up with Dr. Macias -Is on chronic steroids and Xeljanz; has had difficulty tolerating alternative treatment Status: Chronic Additional A&P Information Hyperkalemia: Change tube feeds to Nepro for lower potassium content. He had a bowel movement. Recheck potassium 5.8. Follow. -History of combined systolic and diastolic CHF; s/p pacemaker, defibrillator; f/u with cardiology. Echo (2018): EF=31%, G1DD, global LV hypokinesis, mild MR, trace AR, mild TR, trace FL. TTE currently ejection fraction 50%, grade 1 diastolic dysfunction. Discussed with his [id number] per request of his . It is still improved from his prior EF. There is some global hypokinesis as discussed, it is not clear whether this may be still persistent changes from prior illness, or if this is again new or worsening secondary to the virus. Today he is given low-dose of Lasix 20 mg IV x1. We will continue to monitor volume status. Followed with Dr Anthony Torres, cardiology, [place]. Requested cardiac records. QTC prolongation. Status post SERVER SUPPORT TECHNICIAN/PPM. Discussed with cardiology. Appreciate recommendations. -hx of gout -hx of iron deficiency anemia; H/H stable -prior hx of Erlichiosis with sepsis and multi-organ failure -tube feeds, with water flushes -GI ppx with PPI -Dispo: home -Code status: FULL code -guarded prognosis given continued vent support, ARDS Attestations Medical Necessity Statement*: Continue admission for assessment management of respiratory failure, severe COVID-19, superimposed bacterial pulmonary infection. Coding Level of Care Code Acute Laundry Room Attendant for Chg Fwd Diagnoses Respiratory failure with hypoxia J96.01 Chronicity: acute Acute respiratory distress syndrome (ARDS) due to 2019-nCoV U07.1; J80 Pneumonia due to COVID-19 virus U07.1; J12.89 CKD (chronic kidney disease) N18.2 Chronic kidney disease stage: stage 2 (mild) Seropositive rheumatoid arthritis of multiple joints M05.79
[2020-01-08] MEDS: guaiFENesin 600 mg Tablet OG-TUBE (21:18)
[2020-01-09] VITALS (114 sets, daily range): BP systolic 99–176; BP diastolic 55–93; PULSE 0–114; RESP 18–22; TEMP 36.7–37.3; O2SAT 87–99
[2020-01-09 00:55] LABS: Glucose Point of Care 283 mg/dL (70-110)
[2020-01-09] MEDS: propofol 1,000 MG/100 ML INJ 16.3 MG IV ×3 (02:24→12:35)
[2020-01-09] MEDS: ipratropium-albuterol 3 mL Neb INHALATION ×5 (03:46→19:54)
[2020-01-09 04:25] LABS: Basophils % 0.1 %; Hematocrit 35.6 % (42.0-52.0); Hemoglobin 11.3 g/dL (11.7-16.6); Lymphocytes # 0.2 10^3/uL (0.8-4.8); Lymphocytes % 1.9 %; Mean Corpuscular HGB Conc 31.7 g/dL (30.0-36.0); Mean Corpuscular Volume 100.8 fL (80-94); Mean Platelet Volume 11.8 fL (7.4-10.4); Monocytes # 0.5 10^3/uL (0.2-0.9); Monocytes % 5.5 %; Neutrophils # 7.97 10^3/uL (1.8-7.7); Nucleated Red Blood Cells % 0 %; Platelet Count 134 10^3/cmm (130-400); Red Blood Count 3.53 10^6/uL (4.1-5.3); Red Cell Distribution Width 14.4 % (12.1-15.1)
[2020-01-09 04:47] LABS: D Dimer 0.79 ug/mIFEU (0-0.59)
[2020-01-09 05:16] LABS: Alanine Aminotransferase 33 U/L (0-41); Albumin Level 2.2 g/dL (3.5-5.2); Alkaline Phosphatase 58 IU/L (40-130); Anion Gap 9.1 (5-19); Aspartate Amino Transferase 49 U/L (0-40); Blood Urea Nitrogen 34 mg/dL (8-23); C Reactive Protein 29.6 mg/L (0.0-4.9); Calcium 8.6 mg/dL (8.5-10.5); Carbon Dioxide 32 mmol/L (22-29); Chloride 104 mmol/L (98-107); Globulin 2.9 g/dL (1.3-4.6); Glomerular Filtration Rate 66.2 mL/min (90-130); Glucose 260 mg/dL (65-115); Osmolality Calculated 305 mOsm/kg (285-295); Potassium 6.1 mmol/L (3.5-5.1); Sodium 139 mmol/L (136-145); Total Bilirubin 0.3 mg/dL (0.15-1.2); Total Protein 5.1 g/dL (6.6-8.7)
--- NOTE | 2020-01-09 06:00 | ECG_ITS ---
[facility] ED Test Date: 2020-01-09 Pat Name: Moses Joseph Department: Room: ICU19 Gender: Male Cash Processor: : 1950 Requested By: Hoa Martin Order Number: [id number] Kay MD: Hoa Martin M.D. Measurements Intervals [place] Rate: 69 P: 43 ME: 140 QRS: 107 QRSD: 98 T: 146 QT: 463 QTc: 498 Interpretive Statements A sense V paced rhythm Compared to ECG 01/08/2020 05:47:10 No significant changes Electronically Signed On 01-10-2020 11:39:48 SCHOOL LUNCH MANAGER by Hoa Martin M.D. [id number]
[2020-01-09 06:24] LABS: Glucose Point of Care 219 mg/dL (70-110)
[2020-01-09] MEDS: enoxaparin 100 mg/mL Syringe 86 MG SUBCUT ×2 (06:28→17:16)
--- NOTE | 2020-01-09 06:55 | PC.NURSE ---
Patient's potassium 6.1. Notified Dr. Portillo (hospitalist on-call). Updated on patient condition. New orders noted et implemented. Will continue to monitor.
--- NOTE | 2020-01-09 07:02 | PC.NURSE ---
Report given to next shift.
[2020-01-09] MEDS: dextrose 50% syringe 50 mL IVP (08:00)
[2020-01-09] MEDS: calcium carbonate 500 mg Chew Tablet PO ×2 (08:01→17:16)
[2020-01-09] MEDS: aspirin 81 mg EC Tablet PO (08:01)
[2020-01-09] MEDS: guaiFENesin 600 mg Tablet OG-TUBE ×2 (08:01→17:16)
[2020-01-09] MEDS: atorvastatin 40 mg Tablet 20 MG PO (08:01)
[2020-01-09] MEDS: artificial tears Op Soln 15 mL Btl 1 DROP EYE-BOTH ×2 (08:02→16:32)
[2020-01-09] MEDS: allopurinol 300 mg Tablet PO (08:03)
[2020-01-09] MEDS: lanolin oint 7 gm 1 APPLIC TOPICAL ×2 (08:03→16:34)
[2020-01-09] MEDS: calcium carb-vit d 600mg/400unit 1 Tablet 1 EACH PO (08:03)
[2020-01-09] MEDS: insulin glargine 100 units/1 mL 10 UNIT SUBCUT (08:07)
[2020-01-09] MEDS: FUROsemide 10 mg/mL SDV 4mL 40 MG IVP (08:15)
[2020-01-09] MEDS: budesonide 0.5 mg/2 mL Neb 0.25 MG INHALATION ×2 (08:29→19:54)
[2020-01-09] MEDS: linezolid premix 600 MG/300 ML PREMIX 300 MG IV ×2 (10:27→22:32)
[2020-01-09] MEDS: levofloxacin-dextrose 5 % 750 MG/150 ML PREMIX 100 MG IV (10:27)
--- NOTE | 2020-01-09 11:21 | PC.SOCIAL ---
IMM Updated Updated pt's on Pg 2 IMM, via phone. No questions voiced. Signed, dated, & timed the copy for chart.
[2020-01-09 11:29] LABS: Glucose Point of Care 270 mg/dL (70-110)
[2020-01-09] MEDS: dexamethasone 4 mg/mL INJ 6 MG IVP (11:40)
[2020-01-09] MEDS: pantoprazole 40 mg SDV IVP (16:32)
[2020-01-09 17:09] LABS: Potassium 5.3 mmol/L (3.5-5.1)
[2020-01-09 17:17] LABS: Glucose Point of Care 209 mg/dL (70-110)
--- NOTE | 2020-01-09 18:28 | PC.NURSE ---
Transfer center contacted me and asked if patient's family would be willing for patient to travel to another hospital called [facility]. Sheree () did not answer phone. I contacted Gerda (daughter in law) and she stated that she was fine with patient transferring to [facility].
--- NOTE | 2020-01-09 18:45 | P.TS_ITS ---
Transfer Summary Providers Date of Admission: 12/27/19 14:38 Date of Discharge: 01/09/20 Attending Provider at Admission: Du Sands MD Attending Provider at Transfer: Kirk Almanza Primary Care Provider: Sebas Mojica Jr, MD Anticipated Date of Transfer: Anticipated date of transfer: 01/09/20 Receiving Facility & Provider: Receiving Provider: [] Receiving facility: [] Diagnoses at Discharge Discharge Diagnosis (1) Respiratory failure with hypoxia: Status: Acute Qualifiers: Chronicity: acute Qualified Code(s): J96.01 - Acute respiratory failure with hypoxia (2) Acute respiratory distress syndrome (ARDS) due to 2019-nCoV: Status: Acute (3) Pneumonia due to COVID-19 virus: Status: Acute (4) CKD (chronic kidney disease): Status: Acute Qualifiers: Chronic kidney disease stage: stage 2 (mild) Qualified Code(s): N18.2 - Chronic kidney disease, stage 2 (mild) (5) Seropositive rheumatoid arthritis of multiple joints: Status: Chronic Reason for Visit Reason for Visit: COVID +, sore throat worsening, congestion Hospital Course Hospital Course: 69-year-old gentleman with history of rheumatoid arthritis, on chronic prednisone, Xeljanz, following with rheumatology in [place], history of ehrlichiosis with sepsis and multiorgan failure, history of systolic congestive heart failure, 31% EF in the past (2018), 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 Started on remdesivir, dexamethasone, empirically vancomycin, Zosyn, azithromycin. Sputum culture with mixed khloe from presentation. Blood culture negative. CT chest without contrast consistent with viral pneumonia. Acute kidney injury on chronic kidney disease stage II on presentation, highest creatinine 2.0, with improvement. Briefly seen by nephrology. Echocardiogram during hospitalization showed improvement in ejection fraction from last known back in 2018 to 50% currently, diffuse hypokinesia of septum, grade 1/4 diastolic dysfunction. On presentation briefly received diuresis due to concern for fluid overload. Subsequently remains euvolemic, intermittently given Lasix. Despite treatment with remdesivir, Decadron, empiric antibiotics, with persistent findings of pneumonia, bilateral lower lobes. Transiently requiring pressors which were weaned off. Difficulties weaning off mechanical ventilation, as well as sedation. Becoming tachypneic, in respiratory distress, was desaturating with weaning sedation. FiO2 requirement has been variable between 65% - 80%. Thick secretions. Has been receiving chest physical therapy. Mucinex. PEEP of 10, not tolerating well increase in PEEP. With concern for VTE, inability to perform CTA, empirically anticoagulated with heparin drip, more recently Lovenox. Remdesivir transiently restarted, but discontinued with consultation with pulmonology. Transiently received paralytic with proning with BIS monitoring, also discontinued in consultation with pulmonology given limited effect, and difficulties with proning in the current settings. Sputum culture repeated 01/05+ for Enterobacter cloacae. Antibiotic initially was changed to imipenem, linezolid, however, only intermediate sensitivity to imipenem, and noted less than 16 TIM for Zosyn, Levaquin was added to which this organism is noted sensitive. Fungal smear preliminary without fungal elements. BD glucan and galactomannan requested. Transiently on voriconazole, but discontinued by pulmonology after return of positive bacterial culture. Currently tolerating tube feeds with Nepro due to mild hyperkalemia around 5.5. Regular updates have been given to patient's as well as per request [id number] Gerda who works in healthcare ([phone]). Given persistent respiratory failure with difficulty weaning mechanical ventilation request was made for additional assessment at a higher level of care facility. He is currently being considered by [facility] as discussed with triage there and [facility] by referral from [facility], where I am told there may be a bed opening, as well as [facility] is discussed with pe electrical engineer. He is accepted and on waiting list to these facilities. Family are aware of potential risks of transfer in his severe condition as discussed previously and would like to seek transfer for additional assessment and possible treatment. Please see full notes and reports for details. Do not hesitate to call with any questions. Discharge Summary: Physical Exam Const: COMMON NORMALS: no acute distress OTHER: Thick sputum. HENMT: COMMON NORMALS: oropharynx normal Neck/C-Spine: COMMON NORMALS: no JVD Resp: AUSCULTATION: diminished lung sounds Cardio: COMMON NORMALS: no JVD, regular rhythm, S1 normal heart sound present, S2 normal heart sound present and No murmurs present (Cardio) RHYTHM: regular rhythm HEART SOUNDS: S1 normal heart sound present and S2 normal heart sound present GI: COMMON NORMALS: Normal to inspection, nondistended, normoactive bowel sounds present, Soft to palpation and non-tender PALPATION: Yes Soft to palpation Extremity: COMMON NORMALS: no joint enlargement GENERAL: Yes edema (1+) Neuro: COMMON NORMALS: moves all extremities Skin: COMMON NORMALS: no rashes or lesions noted GENERAL SKIN EXAM: no rashes or lesions noted Urinary Catheter Management^: Muniz: Cath Placed During This Visit: yes Reason for Continuing Indwelling Catheter: Accurate Measurement of Urinary Output in Critically Ill Patients Urinary Catheter Date of Insertion: 12/27/19 Urinary Catheter Time of Insertion: 17:59 TS Data Data Completed and Pending: Completed Studies During Hospitalization Category Date Time Status CT chest wo con 7 1250 Routine Cat Scan 12/27/19 18:19 Completed XR chest 1V [id number] Stat Exams 12/27/19 19:43 Completed XR chest 1V [id number] Stat Exams 12/31/19 11:24 Completed XR chest 1V [id number] Stat Exams 01/06/20 18:28 Completed XR chest 1V shannen ble [id number] Routine Exams 12/29/19 06:00 Completed XR chest 1V shannen ble [id number] Routine Exams 12/30/19 08:34 Completed XR chest 1V shannen ble [id number] Routine Exams 12/31/19 06:00 Completed XR chest 1V shannen ble [id number] Routine Exams 01/02/20 06:00 Completed XR chest 1V shannen ble [id number] Routine Exams 01/04/20 06:00 Completed XR chest 1V shannen ble [id number] Routine Exams 01/06/20 06:00 Completed XR chest 1V shannen ble 44058 Stat Exams 12/27/19 12:37 Completed XR chest 1V sahnnen ble 38944 Stat Exams 12/27/19 18:31 Completed XR chest 1V shannen ble [id number] Stat Exams 12/30/19 00:57 Completed CV echo complete* [id number] Routine Ultrasound 01/05/20 13:22 Completed Pending at discharge Category Date Time Status Arterial Blood Ga s W/O Coox Routine Lab 12/27/19 18:00 Ordered C Reactive Protei n AM LABS Lab 01/10/20 04:00 Ordered C Reactive Protei n AM LABS Lab 01/11/20 04:00 Ordered Complete Blood Co unt w/Auto AM LABS Lab 01/10/20 04:00 Ordered Complete Blood Co unt w/Auto AM LABS Lab 01/11/20 04:00 Ordered Comprehensive Met abolic Panel AM LA BS Lab 01/10/20 04:00 Ordered Comprehensive Met abolic Panel AM LA BS Lab 01/11/20 04:00 Ordered D Dimer AM LABS Lab 01/10/20 04:00 Ordered D Dimer AM LABS Lab 01/11/20 04:00 Ordered Fungal Culture no t HR/SK/BL Routine Lab 01/05/20 16:21 Results Miscellaneous Kenisha t Routine Lab 01/05/20 03:10 Received Miscellaneous Kenisha t Routine Lab 01/05/20 03:10 Received Labs from last 24 hours 01/09/20 01/09/20 01/09/20 17:12 16:05 11:22 WBC RBC Hgb Hct MCV MCH MCHC RDW Plt Count MPV Neut % (Auto) Lymph % (Auto) Crawford % (Auto) Eos % (Auto) Baso % (Auto) Neut # (Auto) Lymph # (Auto) Crawford # (Auto) Eos # (Auto) Baso # (Auto) Nucleated RBC % (a uto) Nucleated RBCs # D-Dimer Specimen Type Sample Site O2 Sat Pulse Oxime try ABG pH ABG pCO2 ABG pO2 ABG HCO3 ABG O2 Saturation ABG Base Excess Bc Test A-a O2 Gradient Hematocrit Hgb O2 Saturation Carboxyhemoglobin Methemoglobin Total Hemoglobin Sodium Potassium 5.3 H Glucose Ionized Calcium Respiration Rate O2 Delivery Device O2 Liters/Min SIMV Vent Mode Mechanical Rate Spontaneous Rate FiO2 Tidal Volume PEEP Pressure Support Pressure Control CPAP Mode BiPAP Specimen Drawn By Electronics Engineering Manager ID Crit Value Read Ba ck Blood Gas Notified Time Chloride Carbon Dioxide Anion Gap BUN Creatinine GFR Calculation POC Glucose 209 270 Calculated Osmolal ity Calcium Magnesium Total Bilirubin AST ALT Alkaline Phosphata se C-Reactive Protein Total Protein Albumin Globulin 01/09/20 01/09/20 01/09/20 06:21 04:00 04:00 WBC RBC Hgb Hct MCV MCH MCHC RDW Plt Count MPV Neut % (Auto) Lymph % (Auto) Crawford % (Auto) Eos % (Auto) Baso % (Auto) Neut # (Auto) Lymph # (Auto) Crawford # (Auto) Eos # (Auto) Baso # (Auto) Nucleated RBC % (a uto) Nucleated RBCs # D-Dimer 0.79 H Specimen Type Sample Site O2 Sat Pulse Oxime try ABG pH ABG pCO2 ABG pO2 ABG HCO3 ABG O2 Saturation ABG Base Excess Bc Test A-a O2 Gradient Hematocrit Hgb O2 Saturation Carboxyhemoglobin Methemoglobin Total Hemoglobin Sodium Potassium Glucose Ionized Calcium Respiration Rate O2 Delivery Device O2 Liters/Min SIMV Vent Mode Mechanical Rate Spontaneous Rate FiO2 Tidal Volume PEEP Pressure Support Pressure Control CPAP Mode BiPAP Specimen Drawn By Electronics Engineering Manager ID Crit Value Read Ba ck Blood Gas Notified Time Chloride Carbon Dioxide Anion Gap BUN Creatinine GFR Calculation POC Glucose 219 Calculated Osmolal ity Calcium Magnesium 2.0 Total Bilirubin AST ALT Alkaline Phosphata se C-Reactive Protein Total Protein Albumin Globulin 01/09/20 01/09/20 01/09/20 04:00 04:00 00:42 WBC 9.0 RBC 3.53 L Hgb 11.3 L Hct 35.6 L MCV 100.8 H MCH 32.0 MCHC 31.7 RDW 14.4 Plt Count 134 MPV 11.8 H Neut % (Auto) 89.0 Lymph % (Auto) 1.9 Crawford % (Auto) 5.5 Eos % (Auto) 0.0 Baso % (Auto) 0.1 Neut # (Auto) 7.97 H Lymph # (Auto) 0.2 L Crawford # (Auto) 0.5 Eos # (Auto) 0.0 Baso # (Auto) 0.0 Nucleated RBC % (a uto) 0 Nucleated RBCs # 0.0 D-Dimer Specimen Type Sample Site O2 Sat Pulse Oxime try ABG pH ABG pCO2 ABG pO2 ABG HCO3 ABG O2 Saturation ABG Base Excess Bc Test A-a O2 Gradient Hematocrit Hgb O2 Saturation Carboxyhemoglobin Methemoglobin Total Hemoglobin Sodium 139 Potassium 6.1 H Glucose 260 H Ionized Calcium Respiration Rate O2 Delivery Device O2 Liters/Min SIMV Vent Mode Mechanical Rate Spontaneous Rate FiO2 Tidal Volume PEEP Pressure Support Pressure Control CPAP Mode BiPAP Specimen Drawn By Electronics Engineering Manager ID Crit Value Read Ba ck Blood Gas Notified Time Chloride 104 Carbon Dioxide 32 H Anion Gap 9.1 BUN 34 H Creatinine 1.1 GFR Calculation 66.2 L POC Glucose 283 Calculated Osmolal ity 305 H Calcium 8.6 Magnesium Total Bilirubin 0.3 AST 49 H ALT 33 Alkaline Phosphata se 58 C-Reactive Protein 29.6 H Total Protein 5.1 L Albumin 2.2 L Globulin 2.9 01/08/20 01/06/20 19:39 19:54 WBC RBC Hgb Hct MCV MCH MCHC RDW Plt Count MPV Neut % (Auto) Lymph % (Auto) Crawford % (Auto) Eos % (Auto) Baso % (Auto) Neut # (Auto) Lymph # (Auto) Crawford # (Auto) Eos # (Auto) Baso # (Auto) Nucleated RBC % (a uto) Nucleated RBCs # D-Dimer Specimen Type Cancelled Sample Site Cancelled O2 Sat Pulse Oxime try Cancelled ABG pH Cancelled ABG pCO2 Cancelled ABG pO2 Cancelled ABG HCO3 Cancelled ABG O2 Saturation Cancelled ABG Base Excess Cancelled Bc Test Cancelled A-a O2 Gradient Cancelled Hematocrit Cancelled Hgb O2 Saturation Cancelled Carboxyhemoglobin Cancelled Methemoglobin Cancelled Total Hemoglobin Cancelled Sodium Cancelled Potassium Cancelled Glucose Cancelled Ionized Calcium Cancelled Respiration Rate Cancelled O2 Delivery Device Cancelled O2 Liters/Min Cancelled SIMV Cancelled Vent Mode Cancelled Mechanical Rate Cancelled Spontaneous Rate Cancelled FiO2 Cancelled Tidal Volume Cancelled PEEP Cancelled Pressure Support Cancelled Pressure Control Cancelled CPAP Cancelled Mode BiPAP Cancelled Specimen Drawn By Cancelled Electronics Engineering Manager ID Cancelled Crit Value Read Ba ck Cancelled Blood Gas Notified Time Cancelled Chloride Carbon Dioxide Anion Gap BUN Creatinine GFR Calculation POC Glucose 218 Calculated Osmolal ity Calcium Magnesium Total Bilirubin AST ALT Alkaline Phosphata se C-Reactive Protein Total Protein Albumin Globulin Vitals: Last Vital Signs Temp 99.2 F 01/09/20 16:00 Pulse 113 H 01/09/20 18:00 Resp 20 H 01/09/20 17:59 BP 147/79 01/09/20 18:00 Pulse Ox 89 L 01/09/20 18:00 TS Medications Medications Home Medications allopurinol 300 mg tablet 300 mg PO DAILY 04/08/19 [History Confirmed 12/27/19] aspirin 81 mg tablet,delayed release 81 mg PO DAILY 04/08/19 [History Confirmed 12/27/19] bumetanide 1 mg tablet 1 mg PO BID 04/08/19 [History Confirmed 12/27/19] calcitriol 0.25 mcg capsule 0.25 mcg PO DAILY cap 04/08/19 [History Confirmed 12/27/19] carvedilol 6.25 mg tablet 6.25 mg PO BID 04/08/19 [History Confirmed 12/27/19] diphenhydramine HCl 25 mg capsule 25 mg PO BEDTIME PRN cap 04/08/19 [History Confirmed 12/27/19] ferrous sulfate 325 mg (65 mg iron) tablet 325 mg PO BID 04/08/19 [History Confirmed 12/27/19] fluvastatin 40 mg capsule 40 mg PO BID 04/08/19 [History Confirmed 12/27/19] glucosamine sulfate 2KCl 1,000 mg tablet 1,000 mg PO BID PRN 04/08/19 [History Confirmed 12/27/19] gabapentin 300 mg capsule See Rx Instructions PO .COMPLEX #60 cap 10/06/19 [Rx Confirmed 12/27/19] prednisone 10 mg tablet See Rx Instructions PO .COMPLEX PRN #30 tab 10/06/19 [Rx Confirmed 12/27/19] tofacitinib 5 mg tablet 5 mg PO DAILY #30 tab 10/06/19 [Rx Confirmed 12/27/19] Calcium 600 + D(3) 1 tab PO DAILY 12/27/19 [History Confirmed 12/27/19] acetaminophen [Tylenol Extra Strength] 1,000 mg PO PRN 12/27/19 [History Confirmed 12/27/19] Active Medications Acetaminophen (Tylenol) 650 mg PO Q6H PRN PRN Reason: Mild/Mod Pain Or Temp >/= 101 Albuterol/Ipratropium (Duoneb) 3 ml INHALATION Q4H PRN PRN Reason: SHORTNESS OF BREATH Last Admin: 01/09/20 15:19 Dose: 3 ml Documented by: Allopurinol (Zyloprim) 300 mg PO DAILY [facility] Last Admin: 01/09/20 08:03 Dose: 300 mg Documented by: Artificial Tears (Isopto Tears) 1 drop EYE-BOTH BID [facility] Last Admin: 01/09/20 16:32 Dose: 1 drop Documented by: Aspirin (Aspirin Ec) 81 mg PO DAILY [facility] Last Admin: 01/09/20 08:01 Dose: 81 mg Documented by: Atorvastatin Calcium (Lipitor) 20 mg PO DAILY [facility] Last Admin: 01/09/20 08:01 Dose: 20 mg Documented by: Bisacodyl (Dulcolax) 10 mg PO DAILY PRN PRN Reason: CONSTIPATION Last Admin: 01/04/20 06:29 Dose: 10 mg Documented by: Budesonide (Pulmicort) 0.25 mg INHALATION BID.RESPIRATORY [facility] Last Admin: 01/09/20 08:29 Dose: 0.25 mg Documented by: Calcium Carbonate (Oyster Shell 600mg-Vit D 400unit) 1 each PO DAILY [facility] Last Admin: 01/09/20 08:03 Dose: 1 each Documented by: Calcium Carbonate (Tums) 500 mg PO BID [facility] Last Admin: 01/09/20 17:16 Dose: 500 mg Documented by: Dexamethasone (Decadron) 6 mg IVP Q24H [facility] Last Admin: 01/09/20 11:40 Dose: 6 mg Documented by: Dextrose (D50w) 25 ml IVP ONCE PRN; Protocol PRN Reason: hypoglycemia protocol Dextrose (D50w) 50 ml IVP PRN PRN; Protocol PRN Reason: hypoglycemia protocol Diphenhydramine HCl (Benadryl) 25 mg PO BEDTIME PRN PRN Reason: Sleep Enoxaparin Sodium (Lovenox) 86 mg SUBCUT Q12H [facility] Last Admin: 01/09/20 17:16 Dose: 86 mg Documented by: Glucagon (Glucagen) 1 mg IM ONCE PRN; Protocol PRN Reason: Adult Acute Hypoglycemia Prot. Guaifenesin (Mucinex) 600 mg OG-TUBE BID [facility] Last Admin: 01/09/20 17:16 Dose: 600 mg Documented by: Propofol (Diprivan) 1,000 mg in 100 mls @ 0 mls/hr IV .Q0M [facility]; Protocol Last Titration: 01/09/20 15:42 Dose: 25 mcg/kg/min, 13.6 mls/hr Documented by: Dexmedetomidine HCl 400 mcg/ (Sodium Chloride) 104 mls @ 0 mls/hr IV .Q0M [facility]; Protocol Last Titration: 01/07/20 10:23 Dose: Infused Documented by: Norepinephrine Bitartrate 4 mg (/ Dextrose) 254 mls @ 0 mls/hr IV .Q0M [facility]; Protocol Last Titration: 12/28/19 13:00 Dose: 0 mcg/min, 0 mls/hr Documented by: Rocuronium [place] 100 mg/ (Sodium Chloride) 100 mls @ 0 mls/hr IV Q0M [facility] Last Infusion: 01/05/20 13:28 Dose: 0 mls/hr Documented by: Dextrose (D5w) 500 mls @ 100 mls/hr IV ONCE PRN; Protocol PRN Reason: Adult Acute Hypoglycemia Prot Midazolam HCl 100 mg/ Sodium (Chloride) 100 mls @ 0 mls/hr IV .Q0M [facility]; Protocol Last Titration: 01/09/20 15:42 Dose: 0.5 mg/hr, 0.5 mls/hr Documented by: Linezolid (Zyvox Premix) 600 mg in 300 mls @ 300 mls/hr IV Q12H [facility]; Protocol Last Infusion: 01/09/20 14:57 Dose: Infused Documented by: Imipenem/Cilastatin Sodium 250 (mg/ Sodium Chloride) 100 mls @ 200 mls/hr IV Q6H [facility]; Protocol Last Infusion: 01/09/20 14:57 Dose: Infused Documented by: Levofloxacin/Dextrose (Levaquin-D5w) 750 mg in 150 mls @ 100 mls/hr IV Q24H [facility]; Protocol Last Admin: 01/09/20 10:27 Dose: 100 mls/hr Documented by: Fentanyl 1,000 mcg/ Sodium (Chloride) 100 mls @ 0 mls/hr IV .Q0M [facility]; Protocol Last Admin: 01/09/20 07:56 Dose: 100 mcg/hr, 10 mls/hr Documented by: Insulin Aspart (Novolog) 0 unit SUBCUT Q6H [facility]; Protocol Last Admin: 01/09/20 17:16 Dose: 6 unit Documented by: Insulin Glargine (Lantus) 10 unit SUBCUT DAILY [facility] Last Admin: 01/09/20 08:07 Dose: 10 unit Documented by: Lanolin (Lanolin Oint) 1 applic TOPICAL Q6H PRN PRN Reason: DRYNESS Last Admin: 01/09/20 16:34 Dose: 1 applic Documented by: Naloxone HCl (Narcan) 0.1 mg IVP Q2M PRN PRN Reason: OPIATERV Ondansetron HCl (Zofran) 4 mg IVP Q8H PRN PRN Reason: vomiting, or N/V if npo Pantoprazole Sodium (Protonix) 40 mg IVP Q24H [facility] Last Admin: 01/09/20 16:32 Dose: 40 mg Documented by: Discharge Plan Discharge Patient Disposition: Xfer Other Condition: Critical Prescriptions: No Action fluvastatin 40 mg capsule 40 mg PO BID RF: 0 aspirin [Adult Aspirin Regimen] 81 mg tablet,delayed release (DR/EC) 81 mg PO DAILY RF: 0 glucosamine sulfate 2KCl 1,000 mg tablet 1,000 mg PO BID PRN (Reason: unknown) RF: 0 diphenhydramine HCl [Benadryl] 25 mg capsule 25 mg PO BEDTIME PRN (Reason: Sleep) RF: 0 ferrous sulfate [Feosol] 325 mg (65 mg iron) tablet 325 mg PO BID RF: 0 allopurinol 300 mg tablet 300 mg PO DAILY RF: 0 calcitriol 0.25 mcg capsule 0.25 mcg PO DAILY RF: 0 bumetanide 1 mg tablet 1 mg PO BID RF: 0 carvedilol 6.25 mg tablet 6.25 mg PO BID RF: 0 prednisone 10 mg tablet See Rx Instructions PO .COMPLEX PRN (Reason: joint pain) Qty: 30 RF: 2 gabapentin 300 mg capsule See Rx Instructions PO .COMPLEX Qty: 60 RF: 3 Xeljanz 5 mg tablet 5 mg PO DAILY Qty: 30 RF: 3 Tylenol Extra Strength 500 mg Tablet 1,000 mg PO PRN RF: 0 Calcium 600 + D(3) 1 tab PO DAILY RF: 0 Referrals: Sebas Mojica Jr, MD [Primary Care Provider] - Transfer Attestations Time Spent in Transfer Care*: greater than 30 min Quality Metrics Clinical Quality Measures: During this hospital stay, did patient experience: None Coding Level of Care Code Acute [facility]ness Guide for [facility] Fwd Diagnoses Respiratory failure with hypoxia J96.01 Chronicity: acute Acute respiratory distress syndrome (ARDS) due to 2019-nCoV U07.1; J80 Pneumonia due to COVID-19 virus U07.1; J12.89 CKD (chronic kidney disease) N18.2 Chronic kidney disease stage: stage 2 (mild) Seropositive rheumatoid arthritis of multiple joints M05.79
[2020-01-09] MEDS: propofol 1,000 MG/100 ML INJ 13.6 MG IV (19:42)
[2020-01-09] MEDS: guaiFENesin 600 mg Tablet PO (20:04)
--- NOTE | 2020-01-09 21:16 | PC.NURSE ---
Patient and son visited at patient bedside in proper PPE, stayed for approximately 15mins.
[2020-01-09] MEDS: guaiFENesin 100 mg/5 mL UDC 10 mL 400 MG OG-TUBE (22:31)
[2020-01-09 23:41] LABS: Glucose Point of Care 267 mg/dL (70-110)
[2020-01-10] VITALS (111 sets, daily range): BP systolic 96–173; BP diastolic 56–108; PULSE 64–119; RESP 18–24; TEMP 36.9–37.9; O2SAT 85–98
[2020-01-10] MEDS: propofol 1,000 MG/100 ML INJ 13.6 MG IV ×2 (01:48→22:45)
[2020-01-10] MEDS: guaiFENesin 100 mg/5 mL UDC 10 mL 400 MG OG-TUBE ×6 (02:18→22:10)
[2020-01-10] MEDS: ipratropium-albuterol 3 mL Neb INHALATION ×5 (04:00→23:22)
[2020-01-10 04:17] LABS: Basophils % 0.1 %; Hematocrit 35.6 % (42.0-52.0); Hemoglobin 11.5 g/dL (11.7-16.6); Lymphocytes # 0.2 10^3/uL (0.8-4.8); Lymphocytes % 1.9 %; Mean Corpuscular HGB Conc 32.3 g/dL (30.0-36.0); Mean Corpuscular Hemoglobin 31.9 pg (28.0-34.0); Mean Corpuscular Volume 98.9 fL (80-94); Mean Platelet Volume 12.7 fL (7.4-10.4); Monocytes # 0.5 10^3/uL (0.2-0.9); Monocytes % 6.4 %; Neutrophils # 7.34 10^3/uL (1.8-7.7); Neutrophils % 87.2 %; Nucleated Red Blood Cells % 0 %; Platelet Count 138 10^3/cmm (130-400); White Blood Count 8.4 10^3/uL (4.0-10.0)
[2020-01-10 04:33] LABS: Alanine Aminotransferase 40 U/L (0-41); Albumin Level 2.3 g/dL (3.5-5.2); Alkaline Phosphatase 58 IU/L (40-130); Anion Gap 12.1 (5-19); Aspartate Amino Transferase 60 U/L (0-40); Blood Urea Nitrogen 41 mg/dL (8-23); C Reactive Protein 19.9 mg/L (0.0-4.9); Carbon Dioxide 31 mmol/L (22-29); Chloride 98 mmol/L (98-107); Glomerular Filtration Rate 66.2 mL/min (90-130); Glucose 280 mg/dL (65-115); Osmolality Calculated 302 mOsm/kg (285-295); Potassium 5.1 mmol/L (3.5-5.1); Sodium 136 mmol/L (136-145); Total Bilirubin 0.3 mg/dL (0.15-1.2); Total Protein 5.3 g/dL (6.6-8.7)
[2020-01-10 05:21] LABS: Glucose Point of Care 231 mg/dL (70-110)
[2020-01-10] MEDS: enoxaparin 100 mg/mL Syringe 86 MG SUBCUT ×2 (05:24→18:45)
[2020-01-10 05:42] LABS: D Dimer 0.58 ug/mIFEU (0-0.59)
--- NOTE | 2020-01-10 06:00 | XRR_ITS ---
PROCEDURE INFORMATION: Exam: XR Chest, 1 View Exam date and time: 01/10/2020 5:42 AM Age: 69 years old Clinical indication: Condition or disease and device placement; Ett placement (vent status); Lung condition and disease; Other: Covid+; Patient HX: Et and og tube, covid +; Additional info: Hypoxia TECHNIQUE: Imaging protocol: XR of the chest Views: 1 view. COMPARISON: CR XR chest 1V [id number] 01/06/2020 7:25 PM FINDINGS: The heart size is borderline. An endotracheal tube is seen with the tip above the warren. A nasogastric tube is present with the tip in the stomach. 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 The lungs show bilateral heterogenous infiltrates predominantly in the lower lobes. Blunting of the left costophrenic angle is seen, the right is clear. No pneumothorax is present. XR/XR chest 1V portable [id number] IMPRESSION: No pneumothorax is seen.
[2020-01-10] MEDS: budesonide 0.5 mg/2 mL Neb 0.25 MG INHALATION ×2 (08:36→19:34)
[2020-01-10] MEDS: insulin glargine 100 units/1 mL 10 UNIT SUBCUT (08:44)
[2020-01-10] MEDS: atorvastatin 40 mg Tablet 20 MG PO (08:44)
[2020-01-10] MEDS: artificial tears Op Soln 15 mL Btl 1 DROP EYE-BOTH ×2 (08:44→18:47)
[2020-01-10] MEDS: allopurinol 300 mg Tablet PO (08:45)
[2020-01-10] MEDS: aspirin 81 mg EC Tablet PO (08:45)
[2020-01-10] MEDS: calcium carb-vit d 600mg/400unit 1 Tablet 1 EACH PO (08:45)
[2020-01-10] MEDS: propofol 1,000 MG/100 ML INJ 16.3 MG IV ×2 (09:27→16:27)
[2020-01-10 10:15] LABS: Add Urine Microscopic? NO
[2020-01-10] MEDS: linezolid premix 600 MG/300 ML PREMIX 300 MG IV ×2 (10:18→22:10)
[2020-01-10 10:26] LABS: Bilirubin Urine Neg (Negative); Blood Urine Neg (Negative); Glucose Urine UA Norm (Normal); Ketones Urine Negative (Negative); Leukocyte Esterase Urine Negative (Negative); Nitrate Urine Negative (Negative); Protein Urine Neg (Negative); Urine Appearance Clear (CLEAR); Urine Color Yellow (Yellow); Urobilinogen Urine Norm (Negative); pH Urine 5 (5-7)
[2020-01-10 11:51] LABS: Glucose Point of Care 249 mg/dL (70-110)
[2020-01-10] MEDS: dexamethasone 4 mg/mL INJ 6 MG IVP (11:55)
[2020-01-10] MEDS: levofloxacin-dextrose 5 % 750 MG/150 ML PREMIX 100 MG IV (11:56)
--- NOTE | 2020-01-10 14:35 | PC.NURSE ---
[facility], no bed Gabrielle from [facility] COVID ICU transfer line called, patient still on waiting list.
--- NOTE | 2020-01-10 15:21 | PC.NURSE ---
9 V Tach Patient had 9beat run of V TACH on monitor. Dr. Almanza notified. He will look at chart.
[2020-01-10 16:16] LABS: Magnesium 1.8 mg/dL (1.7-2.3)
[2020-01-10] MEDS: pantoprazole 40 mg SDV IVP (16:34)
[2020-01-10] MEDS: magnesium sulfate premix 2 GM/50 ML PIGGYBACK IV (16:34)
[2020-01-10 18:32] LABS: Glucose Point of Care 288 mg/dL (70-110)
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
[2020-01-11] VITALS (60 sets, daily range): BP systolic 93–162; BP diastolic 47–83; PULSE 60–163; RESP 18–20; TEMP 36.4–37.3; O2SAT 87–98
[2020-01-11 00:33] LABS: Glucose Point of Care 330 mg/dL (70-110)
[2020-01-11] MEDS: guaiFENesin 100 mg/5 mL UDC 10 mL 400 MG OG-TUBE ×3 (01:55→12:09)
[2020-01-11] MEDS: ipratropium-albuterol 3 mL Neb INHALATION ×2 (03:09→09:22)
[2020-01-11 03:52] LABS: ABG PCO2 52.5 mmHg (35-45); ABG PH Result 7.38 (7.35-7.45); Alveolar-Arterial Oxygen Gradi 59.1 mmHg (5-10); Arterial Blood Gas Hematocrit 38.2 % (42-52); Base Excess ABG 4.7 mmol/L (-2.0-2.0); Blood Gas Sample Site Radial, left; Blood Gas Sample Type Arterial; Ionized Calcium Level - ABG 1.2 mmol/L (1.1-1.4); Methemoglobin 0.9 % (0.4-1.5); Oxygen Device VENT; Oxygen Saturation ABG 98.9; Potassium Level - ABG 4.7 mmol/L (3.5-5.0); Total Hemoglobin 12.5 g/dL (14-18)
[2020-01-11 05:24] LABS: Basophils % 0.1 %; Eosinophils % 0.1 %; Hematocrit 34.5 % (42.0-52.0); Hemoglobin 11.1 g/dL (11.7-16.6); Lymphocytes # 0.2 10^3/uL (0.8-4.8); Lymphocytes % 1.9 %; Mean Corpuscular HGB Conc 32.2 g/dL (30.0-36.0); Mean Corpuscular Hemoglobin 32.2 pg (28.0-34.0); Monocytes # 0.5 10^3/uL (0.2-0.9); Monocytes % 6.2 %; Neutrophils # 6.68 10^3/uL (1.8-7.7); Neutrophils % 85.9 %; Nucleated Red Blood Cells % 0 %; Platelet Count 135 10^3/cmm (130-400); Red Blood Count 3.45 10^6/uL (4.1-5.3); Red Cell Distribution Width 14.3 % (12.1-15.1); White Blood Count 7.8 10^3/uL (4.0-10.0)
[2020-01-11 05:31] LABS: Glucose Point of Care 269 mg/dL (70-110)
[2020-01-11] MEDS: enoxaparin 100 mg/mL Syringe 86 MG SUBCUT (05:34)
[2020-01-11 06:00] LABS: Alanine Aminotransferase 43 U/L (0-41); Albumin Level 2.5 g/dL (3.5-5.2); Alkaline Phosphatase 57 IU/L (40-130); Blood Urea Nitrogen 39 mg/dL (8-23); C Reactive Protein 15.2 mg/L (0.0-4.9); Calcium 8.4 mg/dL (8.5-10.5); Carbon Dioxide 29 mmol/L (22-29); Chloride 98 mmol/L (98-107); Globulin 2.3 g/dL (1.3-4.6); Glomerular Filtration Rate 73.9 mL/min (90-130); Glucose 278 mg/dL (65-115); Osmolality Calculated 297 mOsm/kg (285-295); Sodium 134 mmol/L (136-145); Total Bilirubin 0.3 mg/dL (0.15-1.2); Total Protein 4.8 g/dL (6.6-8.7)
[2020-01-11 06:04] LABS: D Dimer 0.65 ug/mIFEU (0-0.59)
[2020-01-11 06:10] LABS: Aspartate Amino Transferase 63 U/L (0-40)
[2020-01-11 06:13] LABS: Slide Review Slide Review Perform
[2020-01-11] MEDS: budesonide 0.5 mg/2 mL Neb 0.25 MG INHALATION (09:21)
--- NOTE | 2020-01-11 09:36 | PC.NURSE ---
Accepted at [facility] room 493. Called and notified of news of acceptance at [facility] room 493. Offered to allow to come see before transfer, declined.
--- NOTE | 2020-01-11 10:07 | PC.NURSE ---
Report called to Miriam Little RN [facility] [phone]
[2020-01-11] MEDS: calcium carb-vit d 600mg/400unit 1 Tablet 1 EACH PO (10:31)
[2020-01-11] MEDS: allopurinol 300 mg Tablet PO (10:31)
[2020-01-11] MEDS: artificial tears Op Soln 15 mL Btl 1 DROP EYE-BOTH (10:32)
[2020-01-11] MEDS: insulin glargine 100 units/1 mL 10 UNIT SUBCUT (10:32)
[2020-01-11] MEDS: atorvastatin 40 mg Tablet 20 MG PO (10:35)
[2020-01-11] MEDS: aspirin 81 mg EC Tablet PO (10:36)
[2020-01-11] MEDS: propofol 1,000 MG/100 ML INJ 19.1 MG IV ×2 (10:58→13:00)
--- NOTE | 2020-01-11 11:32 | PC.SOCIAL ---
Patient is being transferred to [facility].
[2020-01-11] MEDS: dexamethasone 4 mg/mL INJ 6 MG IVP (12:07)
[2020-01-11] MEDS: linezolid premix 600 MG/300 ML PREMIX 300 MG IV (12:08)
[2020-01-11] MEDS: levofloxacin-dextrose 5 % 750 MG/150 ML PREMIX 100 MG IV (12:08)
[2020-01-11 12:29] LABS: Glucose Point of Care 201 mg/dL (70-110)
--- NOTE | 2020-01-11 12:43 | PC.NURSE ---
Addendum entered by Junaid Gilliam RN 01/11/20 13:00: Propofol sent with crew as well. Original Note: Fentanyl drip sent with flight crew, as it will be a few hours before landing at [facility]. Belongings with Patient.
--- NOTE | 2020-01-11 13:21 | PC.RESP ---
Pt taken off ventilator for transport to another facility
--- NOTE | 2020-01-11 13:23 | PC.NURSE ---
Transferred [facility] here to pick patient up. Patient taken out via stretcher, on vent, stable, belongings with patient. Family called and notified. [facility] called and notified of patient leaving our facility at this time.
--- NOTE | 2020-01-11 17:03 | P.PN_ITS ---
Subjective Subjective: Interval history: Please refer to transfer summary from 01/08. Patient transferred today for further care to [facility]. Sedation partially weaned this morning. Moving spontaneously. Due to high FiO2 requirement sedation resumed. Does not appear in discomfort. Vitals/I&O/Wt Last Vital Signs Temp 98.0 F 01/11/20 13:28 Pulse 102 H 01/11/20 13:28 Resp 18 01/11/20 13:28 BP 124/70 01/11/20 13:28 Pulse Ox 94 01/11/20 13:28 01/11/20 01/11/20 01/11/20 06:59 14:59 22:59 Intake Total 600.0 / 2470.835 212.504 / 212.504 Output Total 700 / 1200 800 / 800 Balance -100.0 / 1270.835 -587.496 / -587.496 Weight last 48 hrs Weight 95.254 kg Weight 95.254 kg Physical Exam Const: COMMON NORMALS: no acute distress HENMT: COMMON NORMALS: oropharynx normal Neck/C-Spine: COMMON NORMALS: no JVD Resp: COMMON NORMALS: normal respiratory effort AUSCULTATION: crackles (Minimal crackles at bases) and diminished lung sounds Cardio: COMMON NORMALS: no JVD, regular rhythm, S1 normal heart sound present, S2 normal heart sound present and No murmurs present (Cardio) RHYTHM: regular rhythm HEART SOUNDS: S1 normal heart sound present and S2 normal heart sound present GI: COMMON NORMALS: Normal to inspection, nondistended, normoactive bowel sounds present, Soft to palpation and non-tender PALPATION: Yes Soft to palpation Extremity: COMMON NORMALS: no joint enlargement GENERAL: No edema OTHER: Right femoral CVC, no erythema or swelling around the entry. Neuro: COMMON NORMALS: moves all extremities Skin: COMMON NORMALS: no rashes or lesions noted GENERAL SKIN EXAM: no rashes or lesions noted Urinary Catheter Management^: Muniz: Cath Placed During This Visit: yes Reason for Continuing Indwelling Catheter: Accurate Measurement of Urinary Output in Critically Ill Patients Urinary Catheter Date of Insertion: 12/27/19 Urinary Catheter Time of Insertion: 17:59 Data : 01/11/20 04:15 01/11/20 04:15 Micro: Microbiology 01/10/20 09:00 Blood Culture - Preliminary Blood NEGATIVE TO DATE 01/10/20 09:00 Blood Culture - Preliminary Blood NEGATIVE TO DATE A&P Assessment and plan (1) Respiratory failure with hypoxia: At 90% FiO2, PEEP 12 in the morning. Was able to decrease of blood to FiO2 80%. This morning accepted for transfer over at [facility] per family wishes after discussion with triage there where he is flown by fixed wing due to suboptimal weather conditions for Air-Evac. High risk of mortality. Per discussion with in case of cardiac arrest she asks for CODE STATUS change only limiting it with no chest compression, which I agree would bring no additional benefit to reverse underlying condition, and would only lead to additional unnecessary suffering for the patient. She states cardioversion, or attempted defibrillation would be acceptable, but in case of no return of pulse, not to proceed to chest compressions. She would like to continue aggressive care at this time. Continue attempted transfer to higher level facility for additional assessment, any additional experimental or other treatment options. She asks not to discuss that CODE STATUS changes with patient's son at this time, concerned that the son has been going through a very tough time. She does state that this change is in accordance with patient's prior wishes. Continued severe COVID 19 PNA and hypoxic respiratory failure. Concern for possible progression to fibrotic stage. Superimposed bacterial infection also present with enterobacter clocae on reculture of endotracheal aspirate. D-dimer has decreased to normal. CRP continues to decrease, currently down to 15.2. MRSA PCR was negative. TTE with EF 50%, some mild global LV hypokinesis. LVEF is better than in 2018. Galactomannan, B-D glucan, fungal culture in process. Status: Acute Qualifiers: Chronicity: acute Qualified Code(s): J96.01 - Acute respiratory failure with hypoxia (2) Acute respiratory distress syndrome (ARDS) due to 2019-nCoV: As above. Status: Acute (3) Pneumonia due to COVID-19 virus: Severe COVID-19 pneumonia with hypoxic respiratory failure. As above. -Not oxygen dependent at baseline Status: Acute (4) CKD (chronic kidney disease): Improved from admit. -JULIA on CKD stage 2 -Baseline creatinine appears to be around 1 His audio/visual operator is Dr Christina Mehta, YESSICA Ashley in [place] Status: Acute Qualifiers: Chronic kidney disease stage: stage 2 (mild) Qualified Code(s): N18.2 - Chronic kidney disease, stage 2 (mild) (5) Seropositive rheumatoid arthritis of multiple joints: -Follows up with Dr. Macias -Is on chronic steroids and Xeljanz; has had difficulty tolerating alternative treatment Status: Chronic Additional A&P Information Hyperkalemia: Resolved. -History of combined systolic and diastolic CHF; s/p pacemaker, defibrillator; f/u with cardiology. Echo (2018): EF=31%, G1DD, global LV hypokinesis, mild MR, trace AR, mild TR, trace RI. TTE currently ejection fraction 50%, grade 1 diastolic dysfunction. Discussed with his [id number] per request of his . It is still improved from his prior EF. There is some global hypokinesis as discussed, it is not clear whether this may be still persistent changes from prior illness, or if this is again new or worsening secondary to the virus. Today he is given low-dose of Lasix 20 mg IV x1. We will continue to monitor volume status. Followed with Dr Anthony Torres, cardiology, [place]. QTC prolongation. Status post HOMICIDE SQUAD LIEUTENANT/PPM. Discussed with cardiology. -hx of gout -hx of iron deficiency anemia; H/H stable -prior hx of Erlichiosis with sepsis and multi-organ failure -tube feeds, with water flushes -GI ppx with PPI -Poor prognosis. Attestations Medical Necessity Statement*: Transferred for additional assessment and treatment [facility] [place]. Coding Level of Care Code Acute Roadmaster for [facility] Diagnoses Respiratory failure with hypoxia J96.01 Chronicity: acute Acute respiratory distress syndrome (ARDS) due to 2019-nCoV U07.1; J80 Pneumonia due to COVID-19 virus U07.1; J12.89 CKD (chronic kidney disease) N18.2 Chronic kidney disease stage: stage 2 (mild) Seropositive rheumatoid arthritis of multiple joints M05.79
--- NOTE | 2020-01-14 08:05 | PC.SOCIAL ---
Dr Almanza has requested that [place] [facility] [place] Test Name In Range Out Of Range Reference Range Lab ASPERGILLUS ANTIGEN, EIA, TXC SERUM INDEX VALUE 0.62 H ASPERGILLUS AG,EIA,SERUM DETECTED REFERENCE RANGE: <0.50, NOT DETECTED A negative result does not exclude invasive aspergillosis. Follow-up testing may be indicated for high-risk patients . This result along with final sputum culture and preliminary fungal smear results were sent after calling [facility] and retrieving fax number of [phone]. Attn: Belinda Fontana patient care nurse with handwritten request and verbally communicated to review results with current attending provider. Fax sent with confirmation that fax was transmitted successfully.
== END 2020-01-11 13:18 | disposition short-term general hospital (02) | DRG 207 ==
LOC: ER 12:36 → ICU 15:17
PROVIDERS: Family Medicine; Hospitalist; Internal Medicine Cardiovascular Disease; Internal Medicine Nephrology; Admitting Provider Internal Medicine; Emergency Provider Family Medicine; PCP Family Medicine; Visit Provider Internal Medicine
DX: U07.1 COVID-19 (principal); J12.89 Other viral pneumonia; J96.01 Acute respiratory failure with hypoxia; D84.821 Immunodeficiency due to drugs; N17.9 Acute kidney failure, unspecified; E87.4 Mixed disorder of acid-base balance; I13.0 Hypertensive heart and chronic kidney disease with heart failure and stage 1 through stage 4 chronic kidney disease, or unspecified chronic kidney disease; I50.22 Chronic systolic (congestive) heart failure; M05.9 Rheumatoid arthritis with rheumatoid factor, unspecified; M10.9 Gout, unspecified; T38.0X5A Adverse effect of glucocorticoids and synthetic analogues, initial encounter; D50.9 Iron deficiency anemia, unspecified; Z87.891 Personal history of nicotine dependence; Z95.810 Presence of automatic (implantable) cardiac defibrillator; N18.2 Chronic kidney disease, stage 2 (mild); Z79.82 Long term (current) use of aspirin
CPT/HCPCS: 12345; 31500; 36415; 36416; 36592; 36600; 51702; 71045; 71250; 80048; 80051; 80053; 80202; 81001; 81003; 82330; 82550; 82553; 82728; 82803; 82805; 82810; 82962; 83520; 83605; 83615; 83735; 83880; 83986; 84100; 84132; 84145; 84443; 84478; 84484; 85025; 85378; 85384; 85610; 85651; 85730; 86140; 87040; 87070; 87077; 87086; 87102; 87186; 87205; 87206; 87305; 87426; 87449; 87641; 87804; 93005; 93306; 94002; 94003; 94640; 94669; 94799; 96372; 96375; 99284; 99291; A4570; C1751; C9113; J0330; J0456; J0610; J0743; J1100; J1644; J1650; J1815 ×2; J1940; J1956; J2020; J2250; J2270; J2543; J2704; J3010; J3370; J3475; J3490; J7030; J7050; J7626; Q3014; S0030